=== PATIENT | male | born 1980 | race Caucasian/White ===

== ENCOUNTER 2024-02-11 16:48 | Emergency (ER) | payer SELFPAY ==
[2024-02-11 16:52] VITALS: BP 150/88; PULSE 89; TEMP 36.4; O2SAT 96; BMI 54.8
--- NOTE | 2024-02-11 17:04 | ED_ITS ---
HPI HPI - Back Pain/Injury General Chief Complaint: Back Pain/Injury Stated Complaint: Back Pain Time Seen by Provider: 02/11/24 16:58 Mode of arrival: walk-in History of Present Illness HPI Narrative: 43 year old male presents to the ED for low back pain. Onset was Sunday02/08/24 after sitting at a football game on bleachers. He has hx chronic low back pain. Denies fever, chills, injury, urinary sx. Denies change in bowel and/or bladder control. Denies saddle anesthesia. He has been taking Tylenol for pain. He is accompanied by family for a ride home. Related Data Previous Rx's ?Medication ?Instructions ?Recorded oxycodone-acetaminophen 5 mg-325 1 tab PO TID PRN pain 4 days #12 02/11/24 mg tablet (Percocet) tabs prednisone 10 mg tablet See Rx Instructions .Route 02/11/24 .COMPLEX #30 tabs tizanidine 4 mg capsule (Zanaflex) 4 mg PO Q8H PRN muscle spasticity 02/11/24 #14 caps Allergies Allergy/AdvReac Type Severity Reaction Status Date / Time No Known Drug Allergies Allergy Verified 02/11/24 16:52 Opioid HPI Opioid Management Most Recent Opioid Data: Last Pain Scale 9 02/11/24 17:13 Last MAR Pain Assessment 02/11/24 17:13 Review of Systems ROS Constitutional Denies: fever or chills Ears, nose, mouth, and throat Denies: neck pain Cardiovascular Denies: chest pain Respiratory Denies: shortness of breath Gastrointestinal Denies: abdominal pain, nausea, vomiting or diarrhea Genitourinary Denies: painful urination, urinary frequency, urinary urgency, blood in urine or difficulty urinating Musculoskeletal Reports: back pain; Denies: neck pain, extremity pain or extremity swelling Neurological Denies: headache, numbness in extremities, weakness in extremities or lack of coordination PFSH PFSH Social History Little interest or pleasure in doing things: not at all Feeling down, depressed, or hopeless: not at all Exam Constitutional Vital Signs, click to edit/add: Last Vital Signs Temp 97.6 F 02/11/24 16:52 Pulse 89 02/11/24 16:52 Resp 18 02/11/24 16:52 BP 150/88 H 02/11/24 16:52 Pulse Ox 96 02/11/24 16:52 O2 Del Method Room Air 02/11/24 16:52 Common normals: no apparent distress and oriented x3 General appearance: cooperative Eye Common normals: conjunctivae normal and no scleral icterus Neck & C-Spine Common normals: supple Cervical spine: no paracervical muscle tenderness and no paracervical muscle spasm Chest Chest: symmetrical chest wall rise Back & Pelvis Thoracic spine/upper back: normal to inspection; no thoracic spinal tenderness and no paraspinal muscle tenderness Lumbar spine/lower back: normal to inspection, paraspinal muscle tenderness and paraspinal muscle spasm; no lumbar spinal tenderness Neuro Common normals: oriented x3 Sensorium/orientation: awake and alert Speech: speech normal Gait (neuro): normal gait Motor exam: strength 5/5 throughout Course Vital Signs Vital signs: Vital Signs Temperature 97.6 F 02/11/24 16:52 Pulse Rate 89 02/11/24 16:52 Respiratory Rate 18 02/11/24 16:52 Blood Pressure 150/88 H 02/11/24 16:52 Pulse Oximetry 96 02/11/24 16:52 Oxygen Delivery Method Room Air 02/11/24 16:52 Temperature 97.6 F 02/11/24 16:52 Pulse Rate 89 02/11/24 16:52 Respiratory Rate 18 02/11/24 16:52 Blood Pressure 150/88 H 02/11/24 16:52 Pulse Oximetry 96 02/11/24 16:52 Oxygen Delivery Method Room Air 02/11/24 16:52 MDM - Back Pain/Injury MDM Narrative Medical decision making narrative: The patient was given prednisone, Zanaflex, and Percocet with improvement in his discomfort. OARRS was reviewed. Prescriptions were provided for prednisone, Zanaflex, and Percocet. Follow up with pcp for a recheck, further evaluation and treatment; return to the ED if condition worsens. Medical Records Attestation: I reviewed the patient's medical records. Discharge Plan Discharge Chief Complaint: Back Pain/Injury Clinical Impression: Back pain Patient Disposition: Home, Self-Care Time of Disposition Decision: 17:56 Condition: Good Mode of Transportation: Private Vehicle Prescriptions / Home Meds: New prednisone 10 mg tablet See Rx Instructions .ROUTE .COMPLEX Qty: 30 0RF Rx Instructions: Take 5 tablets on days 1-2, 4 tabs on days 3-4, 3 tabs on days 5-6, 2 tabs on days 7-8, 1 tab on days 9-10. tizanidine [Zanaflex] 4 mg capsule 4 mg PO Q8H PRN (Reason: muscle spasticity) Qty: 14 0RF oxycodone-acetaminophen [Percocet] 5-325 mg tablet 1 tab PO TID PRN (Reason: pain) 4 Days Qty: 12 0RF Print Language: Romanian Instructions: Back Pain (ED) Additional Instructions: Return to the ER for new or worsening symptoms. Referrals: MARYBETH BEE [Primary Care Provider] - 1 week
[2024-02-11] MEDS: OXYCODONE HCL/ACETAMINOPHEN 5MG/325MG 1 TAB PO (17:13)
[2024-02-11] MEDS: PREDNISONE 20 MG TABLET 40 MG PO (17:14)
[2024-02-11] MEDS: TIZANIDINE HCL 4 MG TABLET PO (17:14)
== END 2024-02-11 18:10 | disposition home or self-care (01) ==
PROVIDERS: Emergency Provider Emergency Medicine; PCP Internal Medicine
DX: M54.9 Dorsalgia, unspecified (principal)
CPT/HCPCS: 99284; J7512

== ENCOUNTER 2024-11-08 23:51 | Observation (INO) | payer OTHER, SELFPAY ==
--- OUTSIDE RECORDS SUMMARY | 2024-10-29 12:30 | XMS_ITS | Encounter Summary ---
Author Organization [facility] tem Address [id number] [address] [place] [address] Care Team Providers Care Ncqa Specialist Name Role Phone Rivera Simon DO Primary Care Provider [phone] Reason for Visit * Reason Comments back issues/ rash on arm Encounter Details Date Type Department Care Team (Late st Contact Info) Description 10/29/2024 12:30 PM EDT Office Visit [facility] Internal Medicine - Family Medicine [address] [place] [address] Rivera Simon DO [address] [place] [address] Degenerative lumbar spinal stenosis (Primary Dx); Dermatitis; Class 3 severe obesity due to excess calories with serious comorbidity and body mass index (BMI) of 50.0 to 59.9 in adult ([facility]) Social History Tobacco Use Types Packs/Day Years Used Date Smoking Tobacco: Never Smokeless Tobacco: Never Alcohol Use Standard Drinks/Week Comments Not Currently 0 (1 standard drink = 0.6 oz pur e alcohol) Social Connection and Isolation Panel [NHANES] A nswer Date Recorded In a typical week, how many times do you talk on the phone with family, friends, or neighbors? Twice a week 06/26/2022 How often do you get together with friends or re latives? Once a week 06/26/2022 How often do you attend sabianist or catholic serv ices? Never 06/26/2022 Do you belong to any clubs o r organizations such as sabianist groups, unions, fraternal or athletic groups, or school groups? No 06/26/2022 How often do you attend meet ings of the clubs or organizations you belong to? Never 06/26/2022 Are you , , di vorced, , never , or living with a partner? 06/26/2022 AUDIT-C Answer Date Recorded Q1: How often do you have a drink containing alcohol? Never 06/26/2022 Q2: How many drinks containi ng alcohol do you have on a typical day when you are drinking? Patient does not drink Q3: How often do you have si x or more drinks on one occasion? Never 06/26/2022 Overall Financial Resource Strain (CARDIA) Answe r Date Recorded How hard is it for you to pa y for the very basics like food, housing, medical care, and heating? Not very hard 10/28/2024 PHQ-2 Answer Date Recorded Total Score 0 10/29/2024 [facility] - Occupational Stress Questionnaire Answer Date Recorded Do you feel stress - tense, restless, nervous, or anxious, or unable to sleep at night because your mind is troubled all the time - these days? Only a little 06/26/2022 Exercise Vital Sign Answer Date Recorde d On average, how many days pe r week do you engage in moderate to strenuous exercise (like a brisk walk)? 1 day 06/26/2022 On average, how many minutes do you engage in exercise at this level? 10 min 06/26/2022 PRAPARE - Transportation Answer Date Re corded In the past 12 months, has l ack of transportation kept you from medical appointments or from getting medications? No 10/03 In the past 12 months, has l ack of transportation kept you from meetings, work, or from getting things needed for daily living? No 10/28/2024 Housing Instability Answer Date Recorde d Are you worried or concerned that in the next two months you may not have stable housing that you own, rent or stay in as a part of a household? No 10/28/2024 Childcare Answer Date Recorded Do problems getting child ca re make it difficult for you to work or study? No 06/26/2022 Employment Answer Date Recorded Do you need help finding a [facility] and/or a training program? No 06/26/2022 Hunger Screening Answer Date Recorded Within the past 12 months we worried whether our food would run out before we got money to buy more. Never True 10/29/2024 Within the past 12 months th e food we bought just didn't last and we didn't have money to get more. Never True 10/29/2024 Purpose - Life Answer Date Recorded I have a purpose and direction in my life. [place] er Agree nor Disagree 06/26/2022 Education Answer Date Recorded What is the highest level of school you have completed or the highest degree you have received? Associate degree: occupational, technical, or vocational program 06/26/2022 Sex and Gender Information Value Date Recorded Sex Assigned at Not on file Legal Sex Male 11:34 AM EDT Gender Identity Not on file Sexual Orientation Not on file documented as of this encounter Last Filed Vital Signs Vital Sign Reading Time Taken Comments Blood Pressure 118/72 10/29/2024 12:36 PM EDT Pulse 92 10/29/2024 12:36 PM EDT Temperature 36.4 C (97.5 F) 10/29/2024 12:36 PM EDT Respiratory Rate 20 10/29/2024 12:36 PM EDT Oxygen Saturation 100% 10/29/2024 12:36 PM EDT Inhaled Oxygen Concentration - - Weight 213.6 kg (471 lb) 10/29/2024 12:36 PM EDT Height 193 cm (6' 3.98 ) 10/29/2024 12:36 PM EDT Body Mass Index 57.36 10/29/2024 12:36 PM EDT documented in this encounter Progress Notes * Rivera Simon, DO - 10/29/2024 12:30 PM EDT IM PROGRESS NOTE Patient - Junior Collins Age - 44 y.o. - 1980 ASSESSMENT & PLAN 1. Degenerative lumbar spinal stenosis (Primary) -patient with recurrent symptoms of his lumbar spinal stenosis -I reviewed MRI report from 2012 showing moderate disease in the L4-L5 and L5-S1 area -will start symptomatic treatment with prednisone burst, restarting baclofen, and advised to use heat or liniment to the low back -if this does not provide any lasting relief, will need to proceed with a repeat MRI scan - predniSONE (DELTASONE) 20 mg tablet; Take 2 tablets (40 mg total) by mouth in the morning for 5 days. Dispense: 10 tablet; Refill: 0 - baclofen (LIORESAL) 10 mg tablet; Take 1 tablet (10 mg total) by mouth 3 (three) times a day. Dispense: 30 tablet; Refill: 2 2. Dermatitis -unknown dermatitis with pruritus -advised patient to use cool compress to the itching areas -may start using Zyrtec or Miriam once daily to help with itching 3. Class 3 severe obesity due to excess calories with serious comorbidity and body mass index (BMI)of 50.0 to 59.9 in adult ([facility]) -currently on phentermine and topiramate -advised patient to start taking them routinely at the same time to assess the efficacy of the treatment Subjective 44-year-old male presents for evaluation of back pain. He has had chronic back pain for over a year, but has gotten worse over the past month. -is located in his lower back, but does not radiate into the legs. -describes it as a burning electric shock type feeling which radiates from his low back and sacral area to his iliac crest, but not to the legs or abdominal region -subsequently will have a chronic aching and stiffness -does not really bother him when he 1st wakes up in the morning, or even while sleeping. However after about 1-2 hours during the day, the discomfort will start -he notices he is having to walk in a flexed position in order to relieve the discomfort. -did have some baclofen left from previous episode which did help with some relief, and is taking meloxicam routinely. -this is similar to a previous episode requiring ED visit about 6-8 months ago. -no instability or falls due to the back pain A review of systems was negative except for the following: Endocrine: Has not gained or lost any weight since starting phentermine and topiramate. However hasnot been taking either medication routinely. Dermatological: Complains of some pruritic, slightly raised lesions on both forearms along the extensor surface. No discoloration, but is located within the area of his tattoos bilaterally.. Exam BP 118/72 (BP Site: Left Arm, BP Postition: Sitting, BP CUFF SIZE: L (13-17 inches)) Pulse 92 Temp 36.4 ??C (97.5 ??F) (Tympanic) Resp 20 Ht 193 cm (6' 3.98 ) Wt (!) 213.6 kg (471 lb) SpO2 100% BMI 57.36 kg/m?? Physical Exam Vitals reviewed. Constitutional: General: He is not in acute distress. Appearance: He is well-developed. He is obese. He is not toxic-appearing. Comments: Extremely obese HENT: Head: Normocephalic. Right Ear: External ear normal. Left Ear: External ear normal. Nose: No congestion or rhinorrhea. Right Turbinates: Swollen. Left Turbinates: Swollen. Eyes: General: No scleral icterus. Neck: Vascular: No carotid bruit. Cardiovascular: Rate and Rhythm: Normal rate and regular rhythm. Heart sounds: No murmur heard. No gallop. Comments: Heart tones are distant Pulmonary: Effort: Pulmonary effort is normal. Breath sounds: No wheezing or rales. Musculoskeletal: General: Tenderness (bilateral lumbar paraspinals, bilateral SI joints and bilateral sciatic notch)present. Right lower leg: No edema. Left lower leg: No edema. Comments: Lumbar flexion limited at 45??. Lumbar extension limited at 0?? with pain Skin: General: Skin is warm and dry. Coloration: Skin is not jaundiced. Findings: No bruising. Neurological: General: No focal deficit present. Mental Status: He is alert and oriented to person, place, and time. Cranial Nerves: No cranial nerve deficit. Sensory: No sensory deficit (No loss of pinprick sensation in the L4, L5, or S1 dermatome bilaterally in the lower legs). Motor: No weakness. Coordination: Coordination normal. Deep Tendon Reflexes: Reflexes are normal and symmetric. Reflexes normal (Patellar 1+/4 bilateral. Achilles 1+/4 bilateral.). Comments: Straight leg raising negative in the seated position bilaterally. Psychiatric: Mood and Affect: Mood normal. Behavior: Behavior normal. Meds Current Outpatient Medications: famotidine (PEPCID) 20 mg tablet, Take 1 tablet (20 mg total) by mouth in the morning and 1 tablet (20 mg total) before bedtime., Disp: 180 tablet, Rfl: 1 lisinopril-hydroCHLOROthiazide (PRINZIDE,ZESTORETIC) 20-25 mg per tablet, Take 1 tablet by mouth inthe morning., Disp: 90 tablet, Rfl: 1 meloxicam (MOBIC) 15 mg tablet, Take 1 tablet (15 mg total) by mouth in the morning., Disp: 90 tablet, Rfl: 1 phentermine 37.5 MG capsule, Take 1 capsule (37.5 mg total) by mouth every morning., Disp: 30 capsule, Rfl: 0 sertraline (ZOLOFT) 50 mg tablet, Take 1 tablet (50 mg total) by mouth in the morning., Disp: 90 tablet, Rfl: 1 topiramate (TOPAMAX) 25 mg tablet, Take 1 tablet (25 mg total) by mouth nightly., Disp: 30 tablet, Rfl: 2 baclofen (LIORESAL) 10 mg tablet, Take 1 tablet (10 mg total) by mouth 3 (three) times a day., Disp: 30 tablet, Rfl: 2 predniSONE (DELTASONE) 20 mg tablet, Take 2 tablets (40 mg total) by mouth in the morning for 5 days., Disp: 10 tablet, Rfl: 0 Lab Results No visits with results within 1 Month(s) from this visit. Latest known visit with results is: Hospital Outpatient Visit on 07/04/2024 Component Date Value Ref Range Status Cholesterol 07/04/2024 182 150 - 200 mg/dL Final Triglycerides 07/04/2024 102 27 - 150 mg/dL Final HDL Cholesterol 07/04/2024 43 >39 mg/dL Final VLDL 07/04/2024 20 0 - 30 mg/dL Final LDL (calc) 07/04/2024 119 <130 mg/dL Final Cholesterol:HDL Ratio 07/04/2024 4.2 1.0 - 5.0 Final Sodium 07/04/2024 138 134 - 146 mmol/L Final Potassium, Bld 07/04/2024 4.3 3.5 - 5.0 mmol/L Final Chloride 07/04/2024 100 98 - 109 mmol/L Final CO2 07/04/2024 30 22 - 32 mmol/L Final Anion gap 07/04/2024 8 5 - 15 mmol/L Final BUN 07/04/2024 21 5 - 23 mg/dL Final Creatinine 07/04/2024 0.86 0.60 - 1.30 mg/dL Final Glucose 07/04/2024 95 65 - 99 mg/dL Final Calcium 07/04/2024 9.2 8.5 - 10.5 mg/dL Final Total Protein 07/04/2024 7.4 6.0 - 8.0 g/dL Final Albumin 07/04/2024 4.4 3.2 - 5.3 g/dL Final Alkaline Phosphatase 07/04/2024 65 39 - 130 U/L Final AST 07/04/2024 18 0 - 41 U/L Final ALT 07/04/2024 26 0 - 40 U/L Final Total bilirubin 07/04/2024 0.6 0.3 - 1.2 mg/dL Final eGFR (CKD-EPI)non-race dependent 07/04/2024 >90 >59 ml/min/1.73sq.m Final Other Testing No results found. Rivera Simon DO., [facility] Office: [phone] documented in this encounter Plan of Treatment Not on file documented as of this encounter Visit Diagnoses Diagnosis Degenerative lumbar spinal stenosis- Primary Spinal stenosis of lumbar region Dermatitis Contact dermatitis and other eczema, due to unspecified cause Class 3 severe obesity due to excess calories with serious comorbidity and body mass index (BMI) of 50.0 to 59.9 in adult ([facility]) documented in this encounter Additional Health Concerns Assessment Noted Time PHQ-9 Depression Total Score: 0 10/30/19 25 12:36 PM EDT documented as of this encounter Care Teams Ncqa Specialist Relationship Specialty Start Date End Date Rivera Simon DO [address] [place] [address] PCP - General Internal Medicine 06/13/22 documented as of this encounter
--- OUTSIDE RECORDS SUMMARY | 2024-10-29 12:30 | XMS_ITS | Encounter Summary ---
Author Organization [facility] tem Address [id number] [address] [place] [address] Care Team Providers Care Animal Control Specialist Name Role Phone Rivera Simon DO Primary Care Provider [phone] Reason for Visit * Reason Comments back issues/ rash on arm Encounter Details Date Type Department Care Team (Late st Contact Info) Description 10/29/2024 12:30 PM EDT Office Visit [facility] Internal Medicine - Family Medicine [address] [place] [address] Rivera Simon DO [address] [place] [address] Degenerative lumbar spinal stenosis (Primary Dx); Dermatitis; Class 3 severe obesity due to excess calories with serious comorbidity and body mass index (BMI) of 50.0 to 59.9 in adult ([facility]) Social History Tobacco Use Types Packs/Day Years [...] week 06/26/2022 How often do you attend gnosticism or zoroastrian serv ices? Never 06/26/2022 Do you belong to any clubs o r organizations such as gnosticism groups, unions, fraternal or athletic groups, or [...] Answer Date Recorded Total Score 0 10/29/2024 [facility] - Occupational Stress [...] Recorded Do you need help finding a [employer] [facility] [employer] [facility] [facility] [facility] and/or a training program? No [...] index (BMI)of 50.0 to 59.9 in adult ([facility]) -currently on phentermine and topiramate -advised patient [...] Testing No results found. Rivera Simon DO., [facility] Office: [phone] documented in this encounter Plan of Treatment Not on file documented as of this encounter Visit Diagnoses Diagnosis Degenerative lumbar spinal stenosis- Primary Spinal stenosis of lumbar region Dermatitis Contact dermatitis and other eczema, due to unspecified cause Class 3 severe obesity due to excess calories with serious comorbidity and body mass index (BMI) of 50.0 to 59.9 in adult ([facility]) documented in this encounter Additional Health Concerns Assessment Noted Time PHQ-9 Depression Total Score: 0 10/30/19 25 12:36 PM EDT documented as of this encounter Care Teams Animal Control Specialist Relationship Specialty Start Date End Date Rivera Simon DO [address] [place] [address] PCP - General Internal Medicine 06/13/22 documented as of this encounter
--- OUTSIDE RECORDS SUMMARY | 2024-11-08 23:58 | XMS_ITS | CCD ---
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 Name Role Phone DR MARYBETH BEE Attending Unavailable ROHIT, DR RUEDA Consulting Unavailable ROHIT, DR RUEDA Primary Care Unavailable ROHIT, DR RUEDA Admitting Unavailable Marybeth Bee DO Primary Care Provider MARYBETH BEE Referring MARYBETH Taylor Primary Care Unavailable Marybeth Bee DO Primary Care Provider [phone] MARYBETH BEE Attending MARYBETH Taylor Referring Unavailable MARYBETH BEE Primary Care Unavailable MARYBETH BEE Attending Unavailable MARYBETH BEE Referring Unavailable MARYBETH BEE Primary Care Unavailable Medications Current Medications Medication Drug Class(es) Dates Sig (Normalized) Sig (Original) baclofen 10 mg oral tablet (9 sources) gamma-Aminobutyri c Acid-ergic Agonist Start: 09-29-2024 End: 10-29-2024 take 1 tablet by mouth three times daily baclofen (LIORESAL) 10 mg tablet Indications: Degenerative lumbar spinal stenosis Take 1 tablet (10 mg total) by mouth 3 (three) times a day. 30 tablet 2 10/29/2024 Active Start: 02-11-2024 take 1 tablet by henry th three times daily baclofen (LIORESAL) 10 mg tablet Indications: Degenerative lumbar spinal stenosis Take 1 tablet (10 mg total) by mouth 3 (three) times a day. 30 tablet 02/11/2024 Active famotidine 20 mg oral tablet (20 sources) Histamine-2 Receptor Antagonist Start: 04-23-2023 End: 07-07-2024 take 1 tablet by mouth in the morning, then take 1 tablet by mouth at bedtime famotidine (PEPCID) 20 mg tablet Indications: Gastroesophageal reflux disease, unspecified whether esophagitis present Take 1 tablet (20 mg total) by mouth in the morning and 1 tablet (20 mg total) before bedtime. 180 tablet 1 07/07/2024 Active hydroCHLOROthiazide 25 mg / lisinopril 20 mg oral tablet (20 sources) Thiazide Diuretic, Angiotensin Converting Enzyme Inhibitor Start: 02-01-2024 End: 07-07-2024 take 1 tablet by mouth once in the morning lisinopril-hydroCHLO ROthiazide (PRINZIDE,ZESTORETIC ) 20-25 mg per tablet Indications: Essential hypertension Take 1 tablet by mouth in the morning. 90 tablet 1 07/07/2024 Active Start: 10-19-2023 End: 02-01-2024 take 1 tablet by mouth once daily in the morning lisinopril-hydroCHLOROthiazide (PRINZIDE,ZESTORETIC) 20-25 mg per tablet Indications: Essential hypertension take 1 tablet by mouth every morning 90 tablet 1 10/19/2023 02/01/2024 Discontinued (Reorder) Start: 04-23-2023 End: 10-19-2023 take 1 tablet by mouth once in the morning lisinopril-hydroCHLOROthiazide (PRINZIDE,ZESTORETIC) 20-25 mg per tablet Indications: Essential hypertension Take 1 tablet by mouth in the morning. 90 tablet 1 04/23/2023 10/19/2023 Discontinued meloxicam 15 mg oral tablet (20 sources) Nonsteroidal Anti-inflammatory Drug Start: 02-05-2024 End: 07-07-2024 take 1 tablet by mouth in the morning meloxicam (MOBIC) 15 mg tablet Indications: Degenerative lumbar spinal stenosis Take 1 tablet (15 mg total) by mouth in the morning. 90 tablet 1 07/07/2024 Active Start: 12-07-2023 End: 02-01-2024 take 1 tablet by mouth in the morning meloxicam (MOBIC) 15 mg tablet Indications: Degenerative lumbar spinal stenosis Take 1 tablet (15 mg total) by mouth in the morning. 30 tablet 01/10/2024 02/01/2024 Discontinued (Reorder) Start: 04-20-2023 End: 12-05-2023 take 1 tablet by mouth once daily in the morning meloxicam (MOBIC) 15 mg tablet Indications: Degenerative lumbar spinal stenosis take 1 tablet by mouth every morning 30 tablet 2 07/25/2023 Active phentermine hydrochloride 37.5 mg oral capsule (16 sources) Sympathomimetic Amine Anorectic Start: 07-14-2024 take 50-59.9 capsules by mouth once daily in the morning phentermine 37.5 MG capsule Indications: Class 3 severe obesity due to excess calories with serious comorbidity and body mass index (BMI) of 50.0 to 59.9 in adult [place] Take 1 capsule (37.5 mg total) by mouth every morning. 30 capsule 07/14/2024 Active Start: 07-08-2024 End: 07-09-2024 take 50-59.9 capsules by mouth once daily in the morning phentermine 37.5 MG capsule Indications: Class 3 severe obesity due to excess calories with serious comorbidity and body mass index (BMI) of 50.0 to 59.9 in adult [place] TAKE 1 CAPSULE BY MOUTH EVERY MORNING 30 capsule 07/09/2024 Active Start: 09-05-2023 take 50-59.9 tablets by mouth once daily before breakfast phentermine (ADIPEX-P) 37.5 mg tablet Indications: Class 3 severe obesity due to excess calories with serious comorbidity and body mass index (BMI) of 50.0 to 59.9 in adult [place] Take 1 tablet (37.5 mg total) by mouth every morning before breakfast. 30 tablet 09/05/2023 Active predniSONE 20 mg oral tablet (1 source) Start: 10-29-2024 End: 11-03-2024 take 2 tablets by mouth in the morning predniSONE (DELTASONE) 20 mg tablet Indications: Degenerative lumbar spinal stenosis Take 2 tablets (40 mg total) by mouth in the morning for 5 days. 10 tablet 10/29/2024 11/03/2024 Active sertraline 50 mg oral tablet (20 sources) Serotonin Reuptake Inhibitor Start: 01-22-2023 End: 07-07-2024 take 1 tablet by mouth in the morning sertraline (ZOLOFT) 50 mg tablet Indications: Anxiety Take 1 tablet (50 mg total) by mouth in the morning. 90 tablet 1 07/07/2024 Active tirzepatide, weight loss, (ZEPBOUND) 5 mg/0.5 mL pen injector (2 sources) Start: 07-04-2024 tirzepatide, w eight loss, (ZEPBOUND) 5 mg/0.5 mL pen injector Indications: JILLIAN (obstructive sleep apnea) Inject 5 mg under the skin every 7 days. 6 mL 1 07/04/2024 Active topiramate 25 mg oral tablet (2 sources) Start: 07-08-2024 take 50-59.9 tablets by mouth once daily topiramate (TOPAMAX) 25 mg tablet Indications: Class 3 severe obesity due to excess calories with serious comorbidity and body mass index (BMI) of 50.0 to 59.9 in adult [place] Take 1 tablet (25 mg total) by mouth nightly. 30 tablet 2 07/08/2024 Active Completed/Discontinued Medications Medication Drug Class(es) Dates Sig (Normalized) Sig (Original) semaglutide, weight loss, (WEGOVY) 0.5 mg/0.5 mL pen injector (1 source) Start: 06-16-2024 End: 07-04-2024 semaglutide, weight loss, (WEGOVY) 0.5 mg/0.5 mL pen injector Indications: Class 3 severe obesity due to excess calories with serious comorbidity and body mass index (BMI) of 50.0 to 59.9 in adult [place] Inject 0.5 mL (0.5 mg total) under the skin every 7 days. 6 mL 06/16/2024 07/04/2024 Discontinued (Formulary change) semaglutide, weight loss, (WEGOVY) 2.4 mg/0.75 mL pen injector (3 sources) Start: 12-28-2022 End: 09-05-2023 semaglutide, weight loss, (WEGOVY) 2.4 mg/0.75 mL pen injector Indications: Class 3 severe obesity due to excess calories with serious comorbidity and body mass index (BMI) of 50.0 to 59.9 in adult [place] Inject 0.75 mL (2.4 mg total) under the skin every 7 days. 9 mL 1 12/28/2022 09/05/2023 Discontinued (Cost of medication) Start: 12-28-2022 semaglutide, w eight loss, (WEGOVY) 2.4 mg/0.75 mL pen injector Indications: Class 3 severe obesity due to excess calories with serious comorbidity and body mass index (BMI) of 50.0 to 59.9 in adult [place] Inject 0.75 mL (2.4 mg total) under the skin every 7 days. 9 mL 1 12/28/2022 Active Problems Active Problems Problem Classification Problem Date Documented Date Episodic/Chronic Allergic reactions (2 sources) Inflammatory dermatosis; Translations: [Dermatitis, unspecified] Onset: 10-29-2024 10-29-2024 Episodic Anxiety disorders (20 sources) Anxiety; Translations: [Anxiety disorder, unspecified] Onset: 06-22-2022 06-22-2022 Chronic Disorders of lipid metabolism (20 sources) Hyperlipidemia, unspecified; Translations: [Hyperlipidemia] Onset: 06-13-2022 Chronic Esophageal disorders (5 sources) Gastroesophageal reflux disease; Translations: [Gastro-esophageal reflux disease without esophagitis] 06-06-2024 Chronic Essential hypertension (20 sources) Essential hypertension; Translations: [Essential (primary) hypertension] Onset: 06-13-2022 06-13-2022 Chronic Other nutritional; endocrine; and metabolic disorders (20 sources) Severe obesity; Translations: [Class 3 severe obesity due to excess calories with serious comorbidity and body mass index (BMI) of 50.0 to 59.9 in adult] Onset: 06-13-2022 07-05-2022 Chronic Other nutritional; endocrine; and metabolic disorders (1 source) Body mass index (BMI) 50.0-59.9, adult; Translations: [Body mass index (BMI) 50.0-59.9, adult] Onset: 07-05-2022 Chronic Other nutritional; endocrine; and metabolic disorders (1 source) Morbid (severe) obesity due to excess calories; Translations: [Morbid (severe) obesity due to excess calories] Onset: 07-05-2022 Chronic Residual codes; unclassified (2 sources) Obstructive sleep apnea syndrome; Translations: [Obstructive sleep apnea (adult) (pediatric)] 07-04-2024 Chronic Residual codes; unclassified (1 source) Obstructive sleep apnea (adult) (pediatric); Translations: [Obstructive sleep apnea (adult) (pediatric)] Onset: 07-04-2024 Chronic Unclassified (1 source) Obesity, class 3; Translations: [Obesity, class 3] Onset: 07-05-2022 Unclassified (1 source) 6 month check up Onset: 07-04-2024 Past or Other Problems Problem Classification Problem Date Documented Da te Episodic/Chronic Mood disorders (19 sources) Mood disorders Onset: 01-22-2023 Resolved: 10-29-2024 01-22-2023 Spondylosis; intervertebral disc disorders; other back problems (20 sources) Degenerative lumbar spinal stenosis; Translations: [Spinal stenosis, lumbar region without neurogenic claudication] Onset: 06-13-2022 04-14-2024 Episodic Results Test Name Value Interpretation Reference Range Facility COMPREHENSIVE METABOLIC PANE Salbador 07-04-2024 Albumin [Mass/Vol] 4.4 g/dL Normal 3.2-5.3 [facility] Comment on above: Performed By: #### Guy ALVAREZ 44872-6 #### [facility] ([id number]) [address], [address] [place] [address] ALP [Catalytic activity/Vol] 65 U/L Normal 39-130 [facility] Comment on above: Performed By: #### Guy ALVAREZ 31295-3 #### [facility] ([id number]) [address], [address] [place] [address] ALT [Catalytic activity/Vol] 26 U/L Normal 0-40 [facility] Comment on above: Performed By: #### Guy ALVAREZ, 66544-2 #### [facility] ([id number]) [address], [address] [place] [address] Anion gap [Moles/Vol] 8 mmol/L Normal 5-15 [facility] Comment on above: Performed By: #### Guy ALVAREZ 87081-8 #### [facility] ([id number]) [address], [address] [place] [address] AST [Catalytic activity/Vol] 18 U/L Normal 0-41 [facility] Comment on above: Performed By: #### Guy ALVAREZ 93113-9 #### [facility] ([id number]) [address], [address] [place] [address] Bilirubin [Mass/Vol] 0.6 mg/dL Normal 0.3-1.2 [facility] Comment on above: Performed By: #### Guy ALVAREZ, 09716-9 #### [facility] ([id number]) [address], [address] [place] [address] Calcium [Mass/Vol] 9.2 mg/dL Normal 8.5-10.5 [facility] Comment on above: Performed By: #### Guy ALVAREZ, 39590-9 #### [facility] ([id number]) [address] [address] [place] [address] Chloride [Moles/Vol] 100 mmol/L Normal 98-109 [facility] Comment on above: Performed By: #### Guy ALVAREZ, 24500-2 #### [facility] ([id number]) [address], [address] [place] [address] CO2 [Moles/Vol] 30 mmol/L Normal 22-32 [facility] Comment on above: Performed By: #### Guy ALVAREZ, 87841-3 #### [facility] ([id number]) [address], [facility] [address] [place] [address] Creatinine [Mass/Vol] 0.86 mg/dL Normal 0.60-1.30 [facility] Comment on above: Result Comment: METH OD TRACEABLE TO IDMS STANDARD Performed By: #### Guy ALVAREZ, 28626-3 #### [facility] ([id number]) [address] [address] [place] [address] eGFR (CKD-EPI) NON-RACE DEPENDENT >90 Normal >59 [facility] Comment on above: Result Comment: Reported eGFR is based on the CKD-EPI 2020 equation that does not use a race coefficient. Performed By: #### Guy ALVAREZ, 64258-8 #### [facility] ([id number]) [address], [address] [place] [address] Glucose [Mass/Vol] 95 mg/dL Normal 65-99 [facility] Comment on above: Performed By: #### Guy ALVAREZ, 14485-0 #### [facility] ([id number]) [address] [place] [address] Potassium [Moles/Vol] 4.3 mmol/L Normal 3.5-5.0 [facility] Comment on above: Performed By: #### Guy ALVAREZ, 11990-1 #### [facility] ([id number]) [address], [address] [place] [address] Protein [Mass/Vol] 7.4 g/dL Normal 6.0-8.0 [facility] Comment on above: Performed By: #### Guy ALVAREZ, 33730-9 #### [facility] ([id number]) [address], [address] [place] [address] Sodium [Moles/Vol] 138 mmol/L Normal 134-146 [facility] Comment on above: Performed By: #### Guy ALVAREZ, 85333-5 #### [facility] ([id number]) [address], [address] [place] [address] Urea nitrogen [Mass/Vol] 21 mg/dL Normal 5-23 [facility] Comment on above: Performed By: #### Gyu ALVAREZ, 06742-2 #### [facility] ([id number]) [address] [place] [address] Lipid 1996 panelon 5 Cholesterol [Mass/Vol] 182 mg/dL Normal 150-200 [facility] Comment on above: Performed By: #### Guy ALVAREZ, 53578-6 #### [facility] ([id number]) [address] [place] [address] Cholesterol in HDL [Mass/Vol] 43 mg/dL Normal >39 [facility] Comment on above: Result Comment: HDL <40 mg/dL - High Risk HDL > or = 40mg/dL- Desirable HDL >60 mg/dL - Negative Risk Performed By: #### Guy ALVAREZ, 17659-1 #### [facility] ([id number]) [address] [place] [address] Cholesterol in LDL [Mass/Vol] 119 mg/dL Normal <130 [facility] Comment on above: Result Comment: LDL <100 mg/dL - Desirable LDL >160 mg/dL - High Risk Performed By: #### Guy ALVAREZ, 78184-4 #### [facility] ([id number]) [address] [place] [address] Cholesterol in VLDL [Mass/Vol] 20 mg/dL Normal 0-30 [facility] Comment on above: Performed By: #### Guy ALVAREZ, 90658-1 #### [facility] ([id number]) [address] [place] [address] CHOLESTEROL:HDL 4.2 Normal 1.0-5.0 [facility] Comment on above: Performed By: #### Guy ALVAREZ, 38456-3 #### [facility] ([id number]) [address] [address] [place] [address] Triglyceride [Mass/Vol] 102 mg/dL Normal 27-150 [facility] Comment on above: Performed By: #### Guy ALVAREZ, 94263-0 #### [facility] ([id number]) [address] [facility] [address] [place] [address] LIPID PROFILEon 06-27-2022 CHOL-HDL RATIO NORM SEE BELOW Normal [facility] Comment on above: Result Comment: 3.3 - 4.4 LOW RISK 4.4 - 7.1 AVERAGE RISK 7.1 - 11.0 MODERATE RISK >11.0 HIGH RISK Performed By: #### C MP, LIPID #### [facility] [address] [place] [address] Dr. Kimmie Palacios Cholesterol [Mass/Vol] 146 mg/dL Normal <=200 [facility] Comment on above: Performed By: #### C MP, LIPID #### [facility] [address] [address] [address] Kimmie Palacios Cholesterol in HDL [Mass/Vol] 45 mg/dL Normal 40-60 [facility] Comment on above: Performed By: #### C MP, LIPID #### [facility] [address] [place] [address] Dr. Kimmie Palacios Cholesterol in LDL [Mass/Vol] 79.8 mg/dL Normal [facility] Comment on above: Performed By: #### C MP, LIPID #### [facility] [address] [place] [address] Dr. Kimmie Palacios Cholesterol.total/C holesterol in HDL [Mass ratio] 3.2 {ratio} Normal [facility] Comment on above: Performed By: #### C MP, LIPID #### [facility] [address] [place] [address] Dr. Kimmie Palacios HDL NORMAL > or = 60 mg/dl - LOW CARDIOVASCULAR RISK <40 mg/dl - HIGH CARDIOVASCULAR RISK Normal [facility] Comment on above: Performed By: #### C MP, LIPID #### [facility] [address] [place] [address] Dr. Kimmie Palacios LDL CALC NORMAL SEE BELOW Normal [facility] Comment on above: Result Comment: <100 mg/dl OPTIMAL 100 - 129 mg/dl NEAR OR ABOVE OPTIMAL 130 - 159 mg/dl BORDERLINE HIGH 160 - 189 mg/dl HIGH >190 mg/dl VERY HIGH Performed By: #### C MP, LIPID #### [facility] [address] [place] [address] Dr. Kimmie Palacios Triglyceride [Mass/Vol] 106 mg/dL Normal <=150 [facility] Comment on above: Performed By: #### C MP, LIPID #### [facility] [address] [place] [address] Dr. Kimmie Palacios VLDL CALC 21.2 mg/dL Normal [facility] Comment on above: Performed By: #### C MP, LIPID #### [facility] [address] [place] [address] Dr. Kimmie Palacios PROF 14(COMP METB)on 023 Albumin [Mass/Vol] 3.2 g/dL Critically low 3.4-5.0 [facility] Comment on above: Performed By: #### C MP, LIPID #### [facility] [address] [place] [address] Dr. Kimmie Palacios Albumin/Globulin [Mass ratio] 0.6 {ratio} Normal [facility] Comment on above: Performed By: #### C MP, LIPID #### [facility] [address] [place] [address] Dr. Kimmie Palacios ALP [Catalytic activity/Vol] 79 U/L Normal 46-116 [facility] Comment on above: Performed By: #### C MP, LIPID #### [facility] [address] [place] [address] Dr. Kimmie Palacios ALT [Catalytic activity/Vol] 24 U/L Normal 16-63 [facility] Comment on above: Performed By: #### C MP, LIPID #### [facility] [address] [place] [address] Dr. Kimmie Palacios Anion gap [Moles/Vol] 12.8 mmol/L Normal [facility] Comment on above: Performed By: #### C MP, LIPID #### [facility] [address] [place] [address] Dr. Kimmie Palacios AST [Catalytic activity/Vol] 16 U/L Normal 15-37 [facility] Comment on above: Performed By: #### C MP, LIPID #### [facility] [address] [place] [address] Dr. Kimmie Palacios Bilirubin [Mass/Vol] 0.3 mg/dL Normal 0.2-1.0 [facility] Comment on above: Performed By: #### C MP, LIPID #### [facility] [address] [address] [address] Kimmie Palacios Calcium [Mass/Vol] 9.1 mg/dL Normal 8.5-10.1 [facility] Comment on above: Performed By: #### C MP, LIPID #### [facility] [address] [address] [address] Kimmie Palacios Chloride [Moles/Vol] 100 mmol/L Normal 98-107 [facility] Comment on above: Performed By: #### C MP, LIPID #### [facility] [address] [place] [address] Dr. Kimmie Palacios CO2 [Moles/Vol] 29.3 mmol/L Normal 21.0-32.0 [facility] Comment on above: Performed By: #### C MP, LIPID #### [facility] [address] [place] [address] Dr. Kimmie Palacios Creatinine [Mass/Vol] 0.97 mg/dL Normal 0.70-1.30 [facility] Comment on above: Performed By: #### C MP, LIPID #### [facility] [address] [place] [address] Dr. Kimmie Palacios EGFR-AF DUTCH >60 Normal >=60 [facility] Comment on above: Performed By: #### C MP, LIPID #### [facility] [address] [place] [address] Dr. Kimmie Palacios EGFR-NON AF DUTCH >60 Normal >=60 [facility] Comment on above: Performed By: #### C MP, LIPID #### [facility] [address] [place] [address] Dr. Kimmie Palacios Globulin (S) [Mass/Vol] 5.0 g/dL Normal [facility] Comment on above: Performed By: #### C MP, LIPID #### [facility] [address] [place] [address] Dr. Kimmie Palacios Glucose [Mass/Vol] 102 mg/dL Normal 74-106 [facility] Comment on above: Performed By: #### C MP, LIPID #### [facility] [address] [address] [address] Kimmie Palacios Potassium [Moles/Vol] 5.1 mmol/L Normal 3.5-5.1 [facility] Comment on above: Performed By: #### C MP, LIPID #### [facility] [address] [place] [address] Dr. Kimmie Palacios Protein [Mass/Vol] 8.2 g/dL Normal 6.4-8.2 [facility] Comment on above: Performed By: #### C MP, LIPID #### [facility] [address] [address] [address] Kimmie Palacios Sodium [Moles/Vol] 137 mmol/L Normal 136-145 [facility] Comment on above: Performed By: #### C MP, LIPID #### [facility] [address] [place] [address] Dr. Kimmie Palacios Urea nitrogen [Mass/Vol] 20.0 mg/dL Critically high 7.0-18.0 [facility] Comment on above: Performed By: #### C MP, LIPID #### [facility] [address] [address] [address] Kimmie Palacios Urea nitrogen/Creatinine [Mass ratio] 20.6 mg/mg Normal [facility] Comment on above: Performed By: #### C MP, LIPID #### [facility] [address] [place] [address] Dr. Kimmie Palacios COMPREHENSIVE METABOLIC PANE Salbador 08-05-2021 Albumin [Mass/Vol] 4.1 g/dL Normal 3.6-5.1 [facility] Comment on above: Performed By: #### 7 600, [id number] #### [facility] [address], [address] [place] [phone] Heel Pricker: Vicente Ahmadi MD Albumin/Globulin [Mass ratio] 1.3 {ratio} Normal 1.0-2.5 [facility] Comment on above: Performed By: #### 7 600, [id number] #### [facility] [address], [address] [place] [id number] Heel Pricker: Vicente Ahmadi MD ALP [Catalytic activity/Vol] 67 U/L Normal 36-130 [facility] Comment on above: Performed By: #### 7 600, [address]7510 #### [facility] [address] [address] Heel Pricker: Vicente Ahmadi MD ALT [Catalytic activity/Vol] 21 U/L Normal 9-46 [facility] Comment on above: Performed By: #### 7 600, 05151 #### [facility] [address] [address] Heel Pricker: Vicente Ahmadi MD AST [Catalytic activity/Vol] 16 U/L Normal 10-40 [facility] Comment on above: Performed By: #### 7 600, [id number] #### [facility] [address] [place] [address] Heel Pricker: Vicente Ahmadi MD Bilirubin [Mass/Vol] 0.4 mg/dL Normal 0.2-1.2 [facility] Comment on above: Performed By: #### 7 600, 74018 #### [facility] [address] [place] [address] Heel Pricker: Vicente Ahmadi MD BUN/CREATININE RATIO NOT APPLICABLE Normal 6-22 [facility] Comment on above: Performed By: #### 7 600, 29152 #### [facility] [address] [place] [address] Heel Pricker: Vicente Ahmadi MD Calcium [Mass/Vol] 9.1 mg/dL Normal 8.6-10.3 [facility] Comment on above: Performed By: #### 7 600, 24604 #### [facility] [address] [place] [address] Heel Pricker: Vicente Ahmadi MD Chloride [Moles/Vol] 101 mmol/L Normal 98-110 [facility] Comment on above: Performed By: #### 7 600, 51997 #### [facility] [address] [address] Heel Pricker: Vicente Ahmadi MD CO2 [Moles/Vol] 27 mmol/L Normal 20-32 [facility] Comment on above: Performed By: #### 7 600, [id number] #### [facility] [place] [address] Heel Pricker: Vicente Ahmadi MD Creatinine [Mass/Vol] 0.86 mg/dL Normal 0.60-1.35 [facility] Comment on above: Performed By: #### 7 600, [id number] #### [facility] [place] [address] Heel Pricker: Vicente Ahmadi MD eGFR NON-AFR. DUTCH 110 mL/min/1.73m2 Normal > OR = 60 [facility] Comment on above: Performed By: #### 7 600, [id number] #### [facility] [place] [address] Heel Pricker: Vicente Ahmadi MD GFR/1.73 sq M.predicted among blacks MDRD (S/P/Bld) [Vol rate/Area] 127 mL/min/{1.73_m2} Normal > OR = 60 [facility] Comment on above: Performed By: #### 7 600, [id number] #### [facility] [place] [address] Heel Pricker: Vicente Ahmadi MD Globulin (S) [Mass/Vol] 3.1 g/dL Normal 1.9-3.7 [facility] Comment on above: Performed By: #### 7 600, [id number] #### [facility] [place] [address] Heel Pricker: Vicente Ahmadi MD Glucose [Mass/Vol] 92 mg/dL Normal 65-99 [facility] Comment on above: Result Comment: Fasting reference interval Performed By: #### 7 600, [id number] #### [facility] [place] [address] Heel Pricker: Vicente Ahmadi MD Potassium [Moles/Vol] 4.5 mmol/L Normal 3.5-5.3 [facility] Comment on above: Performed By: #### 7 600, 75539 #### [facility] of [address], [address] [place] [address] Heel Pricker: Vicente Ahmadi MD Protein [Mass/Vol] 7.2 g/dL Normal 6.1-8.1 [facility] Comment on above: Performed By: #### 7 600, [id number] #### [facility] of [address], [address] [place] [address] Heel Pricker: Vicente Ahmadi MD Sodium [Moles/Vol] 136 mmol/L Normal 135-146 [facility] Comment on above: Performed By: #### 7 600, 14401 #### [facility] of [place] [address] Heel Pricker: Vicente Ahmadi MD Urea nitrogen [Mass/Vol] 21 mg/dL Normal 7-25 [facility] Comment on above: Performed By: #### 7 600, 82431 #### [facility] [place] [address] Heel Pricker: Vicente Ahmadi MD LIPID PANEL, [facility] 03-0 Cholesterol [Mass/Vol] 156 mg/dL Normal <200 [facility] Comment on above: Order Comment: FASTI NG:YES FASTING: YES Performed By: #### 7 600, [id number] #### [facility] [place] [address] Heel Pricker: Vicente Ahmadi MD Cholesterol in HDL [Mass/Vol] 42 mg/dL Normal > OR = 40 [facility] Comment on above: Order Comment: FASTI NG:YES FASTING: YES Performed By: #### 7 600, [id number] #### [facility] [place] [address] Heel Pricker: Vicente Ahmadi MD Cholesterol in LDL [Mass/Vol] 94 mg/dL Normal [facility] Comment on above: Order Comment: FASTI NG:YES FASTING: YES Result Comment: Refe rence range: <100 Desirable range <100 mg/dL for primary prevention; <70 mg/dL for patients with CHD or diabetic patients with > or = 2 CHD risk factors. LDL-C is now calculated using the Renzo calculation, which is a validated novel method providing better accuracy than the Friedewald equation in the estimation of LDL-C. Marcus PHILIPPE et al. ZOEY. 2013;310(19): 8778-6927 (http://education.Xceleron (Chapter 11).Simple IT/faq/ZOH689) Performed By: #### 7 600, [id number] #### [facility] [address], [address] [place] [address] Heel Pricker: Vicente Ahmadi MD Cholesterol.total/C holesterol in HDL [Mass ratio] 3.7 {ratio} Normal <5.0 [facility] Comment on above: Order Comment: FASTI NG:YES FASTING: YES Performed By: #### 7 600, [id number] #### [facility] [address], [address] [place] [address] Heel Pricker: Vicente Ahmadi MD NON HDL CHOLESTEROL 114 mg/dL (calc) Normal <130 [facility] Comment on above: Order Comment: FASTI NG:YES FASTING: YES Result Comment: For patients with diabetes plus 1 major ASCVD risk factor, treating to a non-HDL-C goal of <100 mg/dL (LDL-C of <70 mg/dL) is considered a therapeutic option. Performed By: #### 7 600, [id number] #### [facility] [address], [address] [place] [address] Heel Pricker: Vicente Ahmadi MD Triglyceride [Mass/Vol] 108 mg/dL Normal <150 [facility] Comment on above: Order Comment: FASTI NG:YES FASTING: YES Performed By: #### 7 600, [id number] #### [facility] [place] [address] Heel Pricker: Vicente Ahmadi MD Vital Signs Date Time Vital Sign Value Performing Clinician Facility 10-29-2024 12:36-0400 Body height 193 cm Marybeth Bee DO Work Phone: [facility] 10-29-2024 12:36-0400 Body mass index (BMI) [Ratio] 57.36 kg/m2 Marybeth Garcias DO Work Phone: [facility] 10-29-2024 12:36-0400 Body temperature 97.5 [degF] Marybeth Garcias DO Work Phone: [facility] 10-29-2024 12:36-0400 Body weight 213.64 kg Marybeth Garcias DO Work Phone: [facility] 10-29-2024 12:36-0400 Diastolic blood pressure 72 mm[Hg] Marybeth Garcias DO Work Phone: [facility] 10-29-2024 12:36-0400 Heart rate 92 /min Marybeth Garcias DO Work Phone: [facility] 10-29-2024 12:36-0400 Respiratory rate 20 /min Marybeth Garcias DO Work Phone: [facility] 10-29-2024 12:36-0400 SaO2% (BldA) [Mass fraction] 100 % Marybeth Garcias DO Work Phone: [facility] 10-29-2024 12:36-0400 Systolic blood pressure 118 mm[Hg] Marybeth Bee DO Work Phone: [facility] 07-04-2024 07:55-0500 Body height 193 cm Marybeth Garcias DO Work Phone: [facility] 07-04-2024 07:55-0500 Body mass index (BMI) [Ratio] 57.87 kg/m2 Marybeth Garcias DO Work Phone: [facility] 07-04-2024 07:55-0500 Body temperature 97.39 [degF] Marybeth Garcias DO Work Phone: [facility] 07-04-2024 07:55-0500 Body weight 215.64 kg Marybeth Garcias DO Work Phone: [facility] 07-04-2024 07:55-0500 Diastolic blood pressure 72 mm[Hg] Marybeth Bee DO [email or web address] 07-04-2024 07:55-0500 Heart rate 97 /min Marybeth Bee DO Work Phone: [email or web address] 07-04-2024 07:55-0500 SaO2% (BldA) [Mass fraction] 98 % Marybeth Bee DO Work Phone: [facility] [employer] 07-04-2024 07:55-0500 Systolic blood pressure 120 mm[Hg] Marybeth Bee DO Work Phone: [facility] [employer] 09-05-2023 16:57-0400 Body mass index (BMI) [Ratio] 56.6 kg/m2 Marybeth Bee DO Work Phone: [facility] [email or web address] [facility] 09-05-2023 16:57-0400 Body weight 210.92 kg Marybeth Bee DO Work Phone: [facility] [employer] 09-05-2023 16:57-0400 Diastolic blood pressure 78 mm[Hg] Marybeth Bee DO Work Phone: [facility] [email or web address] [facility] 09-05-2023 16:57-0400 Systolic blood pressure 124 mm[Hg] Marybeth Bee DO Work Phone: [facility] Encounters Encounter Date Encounter Type Care Provider Facility Start: 10-29-2024 End: 10-29-2024 Office outpatient visit 25 minutes Marybeth Bee DO Work Phone: [facility] Comment on above: Degenerative lumbar spinal stenosis (Primary Dx); Dermatitis; Class 3 severe obesity due to excess calories with serious comorbidity and body mass index (BMI) of 50.0 to 59.9 in adult ([facility]) Start: 10-29-2024 End: 10-29-2024 ambulatory [facility] Start: 07-09-2024 End: 07-09-2024 Refill Marybeth L Yuhas DO Work Phone: [facility] Comment on above: Class 3 severe obesi ty due to excess calories with serious comorbidity and body mass index (BMI) of 50.0 to 59.9 in adult [place] Start: 07-07-2024 End: 07-07-2024 Refill Marybeth Bee DO Work Phone: [facility] Comment on above: Essential hypertensi on; Anxiety; Gastroesophageal reflux disease, unspecified whether esophagitis present; Degenerative lumbar spinal stenosis Start: 07-04-2024 End: 07-04-2024 ambulatory [facility] Start: 07-04-2024 End: 07-04-2024 Office outpatient visit 25 minutes Marybeth Bee DO Work Phone: [facility] Comment on above: Essential hypertensi on (Primary Dx); Class 3 severe obesity due to excess calories with serious comorbidity and body mass index (BMI) of 50.0 to 59.9 in adult ([facility] JILLIAN (obstructive sleep apnea); Hyperlipidemia, unspecified hyperlipidemia type; Degenerative lumbar spinal stenosis Start: 07-04-2024 End: 07-04-2024 ambulatory [facility] Start: 06-06-2024 End: 06-06-2024 Refill Marybeth Bee DO Work Phone: [facility] Comment on above: Essential hypertensi on; Anxiety; Gastroesophageal reflux disease, unspecified whether esophagitis present; Degenerative lumbar spinal stenosis Start: 05-15-2024 End: 05-16-2024 Refill Marybeth Bee DO Work Phone: [facility] Comment on above: Degenerative lumbar spinal stenosis Start: 04-14-2024 End: 04-14-2024 Refill Marybeth Garcias DO Work Phone: [facility] Comment on above: Degenerative lumbar spinal stenosis Start: 03-04-2024 End: 03-04-2024 Refill Marybeth Garcias DO Work Phone: [facility] Comment on above: Degenerative lumbar spinal stenosis; Essential hypertension; Anxiety; Gastroesophageal reflux disease, unspecified whether esophagitis present Start: 02-01-2024 End: 02-05-2024 Refill Marybeth Garcias DO Work Phone: [facility] Comment on above: Anxiety; Gastroesophageal reflux disease, unspecified whether esophagitis present; Essential hypertension Degenerative lumbar spinal stenosis Start: 01-10-2024 End: 01-10-[address] Ham CNA [facility] Comment on above: Degenerative lumbar spinal stenosis Start: 01-07-2024 End: 01-07-2024 Refill Lizeth Turner CMA [facility] Comment on above: Degenerative lumbar spinal stenosis Start: 12-05-2023 End: 12-07-2023 Refill Marybeth Garcias DO Work Phone: [facility] Comment on above: Degenerative lumbar spinal stenosis Start: 10-29-2023 End: 10-29-2023 Refill Marybeth Garcias DO Work Phone: [facility] Comment on above: Degenerative lumbar spinal stenosis Start: 10-19-2023 End: 10-19-2023 Refill Marybeth Garcias DO Work Phone: [facility] Comment on above: Gastroesophageal ref lux disease, unspecified whether esophagitis present; Essential hypertension Start: 10-16-2023 End: 10-24-2023 Telephone encounter Marybeth Garcias DO Work Phone: [facility] Start: 09-05-2023 End: 09-05-2023 Office outpatient visit 15 minutes Marybeth Garcias DO Work Phone: [facility] Comment on above: Class 3 severe obesi ty due to excess calories with serious comorbidity and body mass index (BMI) of 50.0 to 59.9 in adult ([facility]) (Primary Dx); Essential hypertension; Degenerative lumbar spinal stenosis Start: 07-25-2023 Refill Marybeth Tim O Work Phone: [facility] Comment on above: Degenerative lumbar spinal stenosis Start: 07-16-2023 Telephone encounter Marybeth leon DO Work Phone: [facility] Start: 06-27-2022 End: 06-28-[address] MARYBETH BEE Facility: Procedures Date Procedure Procedure Detail Performing Clinician Start: 10-29-2024 Adult depression screening assessment Marybeth Bee DO Work Phone: Start: 07-04-2024 Adult depression screening assessment Marybeth Bee DO Work Phone: Start: 01-22-2023 Adult depression screening assessment Marybeth Bee DO Work Phone: Plan of Treatment Date Care Activity Detail Author Start: 07-04-2025 Adult BMI Screening Adult BMI Screen ing [facility] Start: 07-04-2025 Depression Screening Depression Scre ening [facility] Start: 07-04-2025 Tobacco Screening Tobacco Screening [facility] Start: 02-02-2025 Influenza vaccination Influenza Vacc ine [facility] Start: 09-04-2024 Adult BMI Screening Adult BMI Screen ing [facility] Start: 09-04-2024 Tobacco Screening Tobacco Screening [facility] Start: 08-05-2024 End: 08-05-2024 Telemedicine consultation with patient 08/05/2024 3:45 PM EST Telemedicine [facility] [address] [place] [address] Marybeth Bee DO [address] [place] [address] [facility] Start: 07-04-2024 End: 07-04-2024 Patient encounter procedure 07/04/2024 8:00 AM EST Office Visit [facility] [address] [place] [address] Marybeth Bee, [address] [place] [address] [facility] Start: 02-03-2024 COVID-19 Vaccine ( season) COVID-19 Vaccine ( season) [facility] Start: 02-03-2024 COVID-19 Vaccine ( season) COVID-19 Vaccine ( season) [facility] Start: 02-03-2024 Influenza vaccination Influenza Vacc ine [facility] Start: 01-23-2024 Adult BMI Screening Adult BMI Screen ing [facility] Start: 01-23-2024 Depression Screening Depression Scre ening [facility] Start: 01-23-2024 Tobacco Screening Tobacco Screening [facility] Start: 02-02-2023 COVID-19 Vaccine ( season) COVID-19 Vaccine ( season) [facility] Start: 02-02-2023 Influenza vaccination Influenza Vacc ine [facility] Start: 2001 DTaP,Tdap and Td Vaccines (1 - Tdap) DTaP,Tdap and Td Vaccines (1 - Tdap) [facility] Start: 2000 Adult BMI Follow Up Plan Adult BMI Follow Up Plan [facility] End: 07-04-2025 Comprehensive metabolic 2000 panel - Serum or Plasma Comprehensive metabolic panel Lab Routine Hyperlipidemia, unspecified hyperlipidemia type 1 Occurrences starting 07/04/2024 until 07/04/2025 [facility] Work Phone: Comment on above: 1 Occurrences starti ng 07/04/2024 until 07/04/2025 End: 07-04-2025 Lipid 1996 panel - Serum or Plasma Lipid profile Lab Routine Hyperlipidemia, unspecified hyperlipidemia type 1 Occurrences starting 07/04/2024 until 07/04/2025 [facility] Comment on above: 1 Occurrences starti ng 07/04/2024 until 07/04/2025 Payers Date Payer Category Payer Commercial Managed C are - PPO [employer] [id number] 2021 Unknown [employer] [facility] [id number] 2021-Present [phone] [address] [place] [address] [id number] 1982 Unknown [id number] 1982 Unknown [id number] 1982 Unknown [id number] 1982 Unknown [id number] 1959 Unknown [id number] Social History Date Type Detail Facility Start: 07-05-2022 [facility] Start: 07-05-2022 Tobacco use and exposure Smoke less tobacco non-user [facility] Start: 09-05-2023 End: 10-29-2024 Alcoholic beverage intake Ex-drinker (finding) [facility] Start: 06-26-2022 End: 10-29-2024 History of Social function [facility] Start: 06-26-2022 End: 10-29-2024 Social connection and isolation panel [facility] Do you belong to any clubs or organizations such as yazidi groups, unions, fraternal or athletic groups, or school groups? No [facility] Are you now , , , , never or living with a partner? [facility] How often to you hav e a drink containing alcohol? Never [facility] How many standard dr inks containing alcohol do you have on a typical day? Patient does not drink [facility] How hard is it for y ou to pay for the very basics like food, housing, medical care, and heating Somewhat hard [facility] Do you feel stress - tense, restless, nervous, or anxious, or unable to sleep at night because your mind is troubled all the time - these days [OSQ] Only a little [facility] Start: 06-26-2022 Education 15 [facility] Start: 1980 Sex assigned at Not on file [facility] Start: 01-07-2015 Sex Male (finding) [facility] How hard is it for y ou to pay for the very basics like food, housing, medical care, and heating Not very hard [facility] Clinical Notes 07-16-2023 to 10-29-2024 Marybeth Bee, DO - 10/29/2024 12:30 PM Cyril Bee, DO - 07/04/2024 8:00 AM ESTTelephone Encounter - Darby Ham CNA - 01/10/2024 12:33 PM Cyril Bee, - 09/05/2023 4:30 PM EDT Note Date & Type Note Facility 10-29-2024 History of Presen t illness Narrative IM PROGRESS NOTE Patient - Junior Collins [...] (BMI) of 50.0 to 59.9 in adult ([facility]) -currently on phentermine and topiramate -advised patient [...] weight since starting phentermine and topiramate. However has not been taking either medication routinely. Dermatological: Complains of some pruritic, slightly raised lesions on both forearms along the extensor surface. No discoloration, but is located within the area of his tattoos bilaterally.. Exam BP 118/72 (BP Site: Left Arm, BP Postition: Sitting, BP CUFF SIZE: L (13-17 inches)) Pulse 92 Temp 36.4 C (97.5 F) (Tympanic) Resp 20 Ht 193 cm (6' 3.98 ) Wt (!) 213.6 kg (471 lb) SpO2 100% BMI 57.36 kg/m Physical Exam Vitals reviewed. Constitutional: General: He [...] paraspinals, bilateral SI joints and bilateral sciatic notch) present. Right lower leg: No edema. Left lower leg: No edema. Comments: Lumbar flexion limited at 45 . Lumbar extension limited at 0 with pain Skin: General: Skin is warm [...] per tablet, Take 1 tablet by mouth in the morning., Disp: 90 tablet, Rfl: 1 meloxicam [...] ml/min/1.73sq.m Final Other Testing No results found. Marybeth Bee DO., [facility] Office: [phone] documented in this encounter [email or web address] 07-04-2024 History of Presen t illness Narrative IM PROGRESS NOTE Patient - Junior Collins Age - 43 y.o. - 1980 ASSESSMENT & PLAN 1. Essential hypertension (Primary) -goals of treatment reviewed with the patient -office readings are at goal. I encourage patient to start checking more routinely at home. -continue lisinopril-HCTZ 20-25 daily 2. Class 3 severe obesity due to excess calories with serious comorbidity and body mass index (BMI) of 50.0 to 59.9 in adult ([facility]) -patient is aware he needs to have weight loss -in the past had success with a trial of Ozempic, as well as phentermine. -with his sleep apnea, is a good candidate to try Zepbound. Prescription sent today. -if not covered, we will proceed with a regimen of phentermine plus topiramate 3. JILLIAN (obstructive sleep apnea) -STOP-BANG score 6/7 today. High likelihood of sleep apnea. -Zepbound prescribed. - tirzepatide, weight loss, (ZEPBOUND) 5 mg/0.5 mL pen injector; Inject 5 mg under the skin every 7 days. Dispense: 6 mL; Refill: 1 4. Hyperlipidemia, unspecified hyperlipidemia type -not currently on medication -most recent LDL 79 mg/dL - Comprehensive metabolic panel; Future - Lipid profile; Future 5. Degenerative lumbar spinal stenosis -continue to work on weight loss Subjective CARDIOVASCULAR FOLLOW-UP This is a follow up of a pre-existing problem. Blood pressures are not being checked outside the office. Frequency: sporadic Readings have been unknown . BP readings outside the office range from unknown systolic and unknown diastolic. The 10-year ASCVD risk score (Arlette GARCIA, et al., 2019) is: 0.8%* Values used to calculate the score: Age: 43 years Sex: Male Is Non- : No Diabetic: No Tobacco smoker: No Systolic Blood Pressure: 120 mmHg Is BP treated: Yes HDL Cholesterol: 45 mg/dL* Total Cholesterol: 146 mg/dL* * - Cholesterol units were assumed for this score calculation Patient reports following dosing instructions. Still on lisinopril-HCTZ 20-25 daily Physical activity: The patient does not participate in regular exercise at present. Dietary efforts show meat and potatoes, limited vegetables. CV symptoms review was negative for rapid or irregular heart rate, palpitations, syncope A review of systems was negative except for the following: General: sleep disturbance and weight gain Psychiatric: anxiety and has been well controlled with current dose of Zoloft. Endocrine: Previously on Ozempic, but was not covered by insurance. Was on phentermine which did help, but due to loss of insurance was unable to keep his routine appointments. Respiratory: STOP-BANG score 6/7 today. High likelihood of JILLIAN. Patient was unable to get sleep testing done because of lack of insurance. Musculoskeletal: joint stiffness and involves his low back and knees and shoulders. Exam BP 120/72 (BP Site: Left Arm, BP Postition: Sitting) Pulse 97 Temp 36.3 C (97.4 F) (Tympanic) Ht 193 cm (6' 4 ) Wt (!) 215.6 kg (475 lb 6.4 oz) SpO2 98% BMI 57.87 kg/m Physical Exam Vitals reviewed. Constitutional: General: He is not in acute distress. Appearance: He is obese. He is not toxic-appearing. HENT: Head: Normocephalic. Right Ear: External ear normal. Left Ear: External ear normal. Nose: Nose normal. Mouth/Throat: Mouth: Mucous membranes are moist. Eyes: General: No scleral icterus. Neck: Vascular: No carotid bruit. Cardiovascular: Rate and Rhythm: Normal rate and regular rhythm. Pulses: Normal pulses. Heart sounds: No murmur heard. No gallop. Pulmonary: Effort: Pulmonary effort is normal. Breath sounds: Wheezing present. No rales. Abdominal: Palpations: Abdomen is soft. Musculoskeletal: Right lower leg: No edema. Left lower leg: No edema. Skin: General: Skin is warm and dry. Coloration: Skin is not jaundiced. Findings: No bruising. Neurological: Mental Status: He is alert and oriented to person, place, and time. Motor: No weakness. Coordination: Coordination normal. Psychiatric: Mood and Affect: Mood normal. Behavior: Behavior normal. Meds Current Outpatient Medications: baclofen (LIORESAL) 10 mg tablet, Take 1 tablet (10 mg total) by mouth 3 (three) times a day., Disp: 30 tablet, Rfl: 0 famotidine (PEPCID) 20 mg tablet, Take 1 tablet (20 mg total) by mouth in the morning and 1 tablet (20 mg total) before bedtime., Disp: 180 tablet, Rfl: 0 lisinopril-hydroCHLOROthiazide (PRINZIDE,ZESTORETIC) 20-25 mg per tablet, Take 1 tablet by mouth in the morning., Disp: 90 tablet, Rfl: 0 meloxicam (MOBIC) 15 mg tablet, Take 1 tablet (15 mg total) by mouth in the morning., Disp: 30 tablet, Rfl: 0 sertraline (ZOLOFT) 50 mg tablet, Take 1 tablet (50 mg total) by mouth in the morning., Disp: 90 tablet, Rfl: 0 tirzepatide, weight loss, (ZEPBOUND) 5 mg/0.5 mL pen injector, Inject 5 mg under the skin every 7 days., Disp: 6 mL, Rfl: 1 Lab Results No visits with results within 1 Month(s) from this visit. Latest known visit with results is: Orders Only on 07/07/2022 Component Date Value Ref Range Status External Cholesterol 06/27/2022 146 0 - 200 Final External Cholesterol:Hdl 06/27/2022 3.2 (A) 3.3 - 11.0 Final External Hdl Cholesterol 06/27/2022 45 40 - 60 Final External Ldl (Calc) 06/27/2022 79.8 Final External Triglycerides 06/27/2022 106 0 - 150 Final External Very Low Lipoprotein 06/27/2022 21.2 Final External Albumin 06/27/2022 3.2 (A) 3.4 - 5 Final External Alt Sgpt 06/27/2022 24 15 - 37 Final External Anion Gap 06/27/2022 12.8 Final External Ast 06/27/2022 16 15 - 37 Final External Blood Urea Nitrogen Bun 06/27/2022 20 (A) 7 - 18 Final External Calcium Ca 06/27/2022 9.1 8.5 - 10.1 Final External Chloride 06/27/2022 100 98 - 107 Final External Co2 / Carbon Dioxide 06/27/2022 29.3 21 - 32 Final External Creatinine 06/27/2022 0.97 0.7 - 1.30 Final External Gfr Amer 06/27/2022 >60 Final External Gfr Non Amer 06/27/2022 >60 Final External Alkaline Phosphatase 06/27/2022 79 46 - 116 Final External Glucose Fasting Or Rando* 06/27/2022 102 74 - 106 Final External Potassium K 06/27/2022 5.1 3.5 - 5.1 Final External Sodium Na 06/27/2022 137 (A) 3.5 - 5.1 Final Total Bilirubin 06/27/2022 0.3 0.2 - 1.0 Final External Total Protein 06/27/2022 8.2 6.4 - 8.2 Final Other Testing No results found. Marybeth Bee DO., [facility] Office: [phone] documented in this encounter [facility] 01-10-2024 Miscellaneous Notes Formattin g of this note might be different from the original. Junior called to request Meloxicam be sent to [facility] at this time, previously sent to [facility]. documented in this encounter [facility] 01-10-2024 Telephone encount er Note Junior called to request Meloxicam be sent to [facility] at this time, previously sent to [facility]. [facility] 10-16-2023 Miscellaneous Notes Formattin g of this note might be different from the original. ----- Message from Marybeth Bee DO sent at 09/05/2023 5:10 PM EDT ----- Weight recheck - Phentermine Lm on VM Lm on VM Sending letter documented in this encounter [facility] 10-16-2023 Telephone encount er Note ----- Message from Marybeth Bee DO sent at 09/05/2023 5:10 PM EDT ----- Weight recheck - Phentermine [facility] 10-16-2023 Telephone encount er Note Lm on VM [facility] 10-16-2023 Telephone encount er Note Lm on VM [facility] 10-16-2023 Telephone encount er Note Sending letter [facility] [email or web address] [facility] 09-05-2023 History of Presen t illness Narrative IM PROGRESS NOTE Patient - Junior Collins Age - 42 y[facility] 1980 [id number] ASSESSMENT & PLAN Video Visit via Real-time Synchronous Audiovisual Provider Location: [facility] - [facility] MEDIC[facility] [address] [facility] [address] Patient Location: Car Video Visit Consent Statement: I discussed risks, benefits, and alternatives of a real-time synchronous audiovisual consultation with the patient (and any accompanying persons) including the risks that the patient's personal health details and medical records will be discussed over real-time, synchronous, interactive video/audio/telecommunication technology, the visit will not be recorded without the express consent of both the provider and the patient, and that there are some limitations compared to [id number] evaluations. The patient consented to the presence of additional virtual and/or in-person participants. We elected to proceed. 1. Class 3 severe obesity due to excess calories with serious comorbidity and body mass index (BMI) of 50.0 to 59.9 in adult ([facility]) -we discussed his goals of weight loss. His initial goals to get less than 400 lb. -he previously has received instruction on diet. -at the current time he is unable to participate regularly in exercise because of his orthopedic limitations -previously on Wegovy with prescription, and tolerated it well. We did discuss using a compounded formulation of semaglutide through [facility] in [place]. Cost estimate would be anywhere 100-200 dollars a month. He will investigate this, and look at his finances. -more affordable would be phentermine 37.5 mg daily. We reviewed the potential side effects both with anxiety, hypertension palpitations, dry mouth and sleeplessness. He is willing to try this as a start. -Rx for phentermine sent to [email or web address] 2. Essential hypertension -home readings as stated today are at goal -continue to monitor -continue lisinopril-HCTZ 3. Degenerative lumbar spinal stenosis -worsened by weight increase -using meloxicam for relief -will work on weight loss as above Subjective 42-year-old male presents for discussion on weight loss. He is gained 20-25 lb over the past several months. Previously had been taking Wegovy, but no longer has health insurance through his employer, and could not afford to take it any longer. -with increased weight, he is noticing more musculoskeletal problems. His knees and back will hurt if he is walking too far or too long. Typically can go about 40-50 yd and has to stop. 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 Still taking his Zoloft. -he is wondering about using alternatives to the Wegovy to help with medical weight loss A review of systems was negative except for the following: General: weight gain Psychiatric: anxiety Musculoskeletal: gait disturbance, joint pain, and joint stiffness Cardiovascular: Denies any palpitations, lightheadedness or dizziness.. Exam BP 124/78 Wt (!) 210.9 kg (465 lb) BMI 56.60 kg/m Physical Exam Vitals reviewed. Constitutional: General: He is not in acute distress. Appearance: He is obese. He is not toxic-appearing. HENT: Head: Normocephalic. Eyes: General: No scleral icterus. Skin: General: Skin is warm and dry. Coloration: Skin is not jaundiced. Neurological: Mental Status: He is alert. Psychiatric: Mood and Affect: Mood normal. Behavior: Behavior normal. Meds Current Outpatient Medications: famotidine (PEPCID) 20 mg tablet, Take 1 tablet (20 mg total) by mouth in the morning and 1 tablet (20 mg total) before bedtime., Disp: 180 tablet, Rfl: 1 lisinopril-hydroCHLOROthiazide (PRINZIDE,ZESTORETIC) 20-25 mg per tablet, Take 1 tablet by mouth in the morning., Disp: 90 tablet, Rfl: 1 meloxicam (MOBIC) 15 mg tablet, take 1 tablet by mouth every morning, Disp: 30 tablet, Rfl: 2 sertraline (ZOLOFT) 50 mg tablet, Take 1 tablet (50 mg total) by mouth in the morning., Disp: 90 tablet, Rfl: 1 Lab Results No visits with results within 1 Month(s) from this visit. Latest known visit with results is: Orders Only on 07/07/2022 Component Date Value Ref Range Status External Cholesterol 06/27/2022 146 0 - 200 Final External Cholesterol:Hdl 06/27/2022 3.2 (A) 3.3 - 11.0 Final External Hdl Cholesterol 06/27/2022 45 40 - 60 Final External Ldl (Calc) 06/27/2022 79.8 Final External Triglycerides 06/27/2022 106 0 - 150 Final External Very Low Lipoprotein 06/27/2022 21.2 Final External Albumin 06/27/2022 3.2 (A) 3.4 - 5 Final External Alt Sgpt 06/27/2022 24 15 - 37 Final External Anion Gap 06/27/2022 12.8 Final External Ast 06/27/2022 16 15 - 37 Final External Blood Urea Nitrogen Bun 06/27/2022 20 (A) 7 - 18 Final External Calcium Ca 06/27/2022 9.1 8.5 - 10.1 Final External Chloride 06/27/2022 100 98 - 107 Final External Co2 / Carbon Dioxide 06/27/2022 29.3 21 - 32 Final External Creatinine 06/27/2022 0.97 0.7 - 1.30 Final External Gfr Amer 06/27/2022 >60 Final External Gfr Non Amer 06/27/2022 >60 Final External Alkaline Phosphatase 06/27/2022 79 46 - 116 Final External Glucose Fasting Or Rando* 06/27/2022 102 74 - 106 Final External Potassium K 06/27/2022 5.1 3.5 - 5.1 Final External Sodium Na 06/27/2022 137 (A) 3.5 - 5.1 Final Total Bilirubin 06/27/2022 0.3 0.2 - 1.0 Final External Total Protein 06/27/2022 8.2 6.4 - 8.2 Final Other Testing No results found. Marybeth Bee DO., [facility] Office: [phone] documented in this encounter [facility] 07-16-2023 Miscellaneous Notes Formattin g of this note might be different from the original. ----- Message from Mayrbeth Bee DO sent at 12/28/2022 3:21 PM EDT ----- Weight recheck/lab/BP Called twice sending letter documented in this encounter [facility] 07-16-2023 Telephone encount er Note ----- Message from Marybeth eBe DO sent at 12/28/2022 3:21 PM EDT ----- Weight recheck/lab/BP [facility] 07-16-2023 Telephone encount er Note Called twice sending letter [facility] Evaluation note Diagnosis Degenerative lumbar spinal stenosis Spinal stenosis of lumbar region [facility] Diagnosis Essential hypertension Unspecified essential hypertension Anxiety Anxiety state, unspecified Gastroesophageal reflux disease, unspecified whether esophagitis present Degenerative lumbar spinal stenosis Spinal stenosis of lumbar region [facility] Diagnosis Essential hypertension- Primary Unspecified essential hypertension Class 3 severe obesity due to excess calories with serious comorbidity and body mass index (BMI) of 50.0 to 59.9 in adult [place] JILLIAN (obstructive sleep apnea) Obstructive sleep apnea (adult) (pediatric) Hyperlipidemia, unspecified hyperlipidemia type Degenerative lumbar spinal stenosis Spinal stenosis of lumbar region [facility] Essential hypertension Unspecified essential hypertension Anxiety Anxiety state, unspecified Gastroesophageal reflux disease, unspecified whether esophagitis present Degenerative lumbar spinal stenosis Spinal stenosis of lumbar region [facility] Diagnosis Class 3 severe obesity due to excess calories with serious comorbidity and body mass index (BMI) of 50.0 to 59.9 in adult ([facility] [facility] Diagnosis Gastroesophageal reflux disease, unspecified whether esophagitis present Essential hypertension Unspecified essential hypertension [facility] Diagnosis Degenerative lumbar spinal stenosis Spinal stenosis of lumbar region [facility] Diagnosis Class 3 severe obesity due to excess calories with serious comorbidity and body mass index (BMI) of 50.0 to 59.9 in adult ([facility] Primary Essential hypertension Unspecified essential hypertension Degenerative lumbar spinal stenosis Spinal stenosis of lumbar region [facility] Diagnosis Anxiety Anxiety state, unspecified Gastroesophageal reflux disease, unspecified whether esophagitis present Essential hypertension Unspecified essential hypertension [facility] Diagnosis Degenerative lumbar spinal stenosis Spinal stenosis of lumbar region Essential hypertension Unspecified essential hypertension Anxiety Anxiety state, unspecified Gastroesophageal reflux disease, unspecified whether esophagitis present [facility] Diagnosis Degenerative lumbar spinal stenosis Spinal stenosis of lumbar region [facility] Diagnosis Degenerative lumbar spinal stenosis Spinal stenosis of lumbar region [facility] Diagnosis Degenerative lumbar spinal stenosis- Primary Spinal stenosis of lumbar region Dermatitis Contact dermatitis and other eczema, due to unspecified cause Class 3 severe obesity due to excess calories with serious comorbidity and body mass index (BMI) of 50.0 to 59.9 in adult ([facility] [facility] filed[facility] this [facility] filedocumented in this encounter [facility] filedocumented in this [facility] filedocumented in this encounter [facility] filedocumented in this encounter [facility] filedocumented in this encounter [facility] filedocumented in this encounter [facility] filedocumented in this encounter [facility] on filedocumented in this encounter [facility] filedocumented in this encounter [facility] filedocumented in this encounter [facility] filedocumented in this encounter [facility] Summary Purpose Family History No Family History Records FoundNo Family History Records FoundNo Family History Records FoundNo Family History Records Found Advance Directives No Advanced Directives Records FoundNo Advanced Directives Records FoundNo Advanced Directives Records FoundNo Advanced Directives Records Found Reason for Referral Specialty Diagnoses / Procedures Referred By Stella montes Referred To Contact Diagnoses Class 3 severe obesity due to excess calories with serious comorbidity and body mass index (BMI) of 50.0 to 59.9 in adult ([facility]) Marybeth Bee, DO [address] [place] [address] Referral ID Status Reason Start Date Expiration Date V isits Requested Visits Authorized [id number] Pending Review 1 1 Additional Source Comments (unrecognized sect ion and content) No Status Records FoundNo Status Records FoundNo Status Records FoundNo Status Records Found INFORMATION SOURCE (unrecogn ized section and content) DATE CREATED AUTHOR 08/05/2021 [facility] DATE CREATED AUTHOR AUTHOR'S ORGANIZ ATION 09/07/2022 [facility] DATE CREATED AUTHOR AUTHOR'S ORGANIZ ATION 07/07/2024 [facility] DATE CREATED AUTHOR AUTHOR'S ORGANIZ ATION 11/01/2024 [facility] Reason for Visit (unrecogniz ed section and content) Reason Onset Date Comments Med Refill 04/14/2024 Reason Onset Date Comments Med Refill 06/06/2024 Reason Comments 6 month check up Reason Onset Date Comments Med Refill 07/07/2024 Reason Comments Med Change Request Reason Comments Med Refill Reason Onset Date Comments Med Refill 12/05/2023 Reason Onset Date Comments Med Refill 01/07/2024 Reason Onset Date Comments Med Refill 01/10/2024 Reason Onset Date Comments Med Refill 02/01/2024 Reason Onset Date Comments Med Refill 05/15/2024 Reason Comments back issues/ rash on arm Care Teams (unrecognized sec tion and content) 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 Relationship Specialty Start Date End Date Marybeth Bee DO [address] [place] [address] PCP - General Internal Medicine 06/13/22 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 Relationship Specialty Start Date End Date Marybeth Bee DO [address] [place] [address] PCP - General Internal Medicine 06/13/22 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 Relationship Specialty Start Date End Date Marybeth Bee DO [address] [place] [address] PCP - General Internal Medicine 06/13/22 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 Relationship Specialty Start Date End Date Marybeth Bee DO [address] [place] [address] PCP - General Internal Medicine 06/13/22 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 Relationship Specialty Start Date End Date Marybeth Bee DO [address] [place] [address] PCP - General Internal Medicine 06/13/22 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 Relationship Specialty Start Date End Date Marybeth Bee DO [address] [place] [address] PCP - General Internal Medicine 06/13/22 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 Relationship Specialty Start Date End Date Marybeth Bee DO [address] [place] [address] PCP - General Internal Medicine 06/13/22 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 Relationship Specialty Start Date End Date Marybeth Bee DO [address] [place] [address] PCP - General Internal Medicine 06/13/22 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 Relationship Specialty Start Date End Date Marybeth Bee DO [address] [place] [address] PCP - General Internal Medicine 06/13/22 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 Relationship Specialty Start Date End Date Marybeth Bee DO [address] [place] [address] PCP - General Internal Medicine 06/13/22 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 This clinical summary was aggregated from multiple sources. Caution should be exercised in using it in the provision of clinical care. This summary normalizes information from multiple sources, and as a consequence, information in this document may materially change the coding, format and clinical context of patient data. In addition, data may be omitted in some cases. CLINICAL DECISIONS SHOULD BE BASED ON THE PRIMARY CLINICAL RECORDS. [facility] [employer] [facility]. provides no warranty or guarantee of the accuracy or completeness of information in this document.
[2024-11-09] VITALS (75 sets, daily range): BP systolic 115–142; BP diastolic 60–103; PULSE 71–137; TEMP 36.6–36.8; O2SAT 93–100; BMI 56.0; BMI 55.4
--- NOTE | 2024-11-09 00:02 | ECG_ITS ---
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 Measurements Intervals Tichnor Rate: 128 P: -[id number] AK: -[id number] QRS: 83 QRSD: 90 T: 13 QT: 310 QTc: 386 Interpretive Statements 17658 Atrial fibrillation with rapid ventricular response Nonspecific ST-T wave changes 9140 abnormal rhythm ECG Compared to ECG 01/23/2020 15:14:02 Sinus rhythm no longer present Electronically Signed On 11-09-2024 19:57:20 EDT by ANTONIO RAMAN M.D.
--- NOTE | 2024-11-09 00:14 | ED.CHESTPAI1 ---
HPI - Chest Pain General Chief Complaint: Chest Pain Stated Complaint: palpitations Time Seen by Provider: 11/09/24 00:10 Source: patient Mode of arrival: walk-in History of Present Illness HPI narrative: presents complaining of palpitations that started around 11:30pm tonight. No associated chest pain or dyspnea. Past history of HTN and recently started adipex in the past month to help him loose weight. no light headiness or fever Related Data Home Medications ?Medication ?Instructions ?Recorded ?Confirmed baclofen 10 mg tablet 10 mg PO TID 11/09/24 11/09/24 phentermine 37.5 mg capsule 37.5 mg PO QAM 11/09/24 11/09/24 Allergies Allergy/AdvReac Type Severity Reaction Status Date / Time No Known Drug Allergies Allergy Verified 02/11/24 16:52 Review of Systems ROS Status of ROS 10 or more systems reviewed and unremarkable except as noted in history and below [facility] Medical History (Updated 11/09/24 @ 02:24 by Teja Mccoy MD) HTN (hypertension) ?I10 - Essential (primary) hypertension (ICD-10) Social History Little interest or pleasure in doing things: not at all Feeling down, depressed, or hopeless: not at all Exam Constitutional Vital Signs, click to edit/add: Last Vital Signs Temp 98.1 F 11/09/24 00:04 Pulse 85 11/09/24 02:16 Resp 19 11/09/24 02:16 BP 135/63 11/09/24 02:16 Pulse Ox 97 11/09/24 02:16 O2 Del Method Room Air 11/09/24 00:16 Common normals: no apparent distress, oriented x3, no limitations, healthy appearing, alert and well nourished [facility] Common normals: normocephalic and head/scalp atraumatic Eye Common normals: PERRL and EOMs intact bilaterally Respiratory Common normals: normal respiratory effort, no retractions, no use of accessory muscles and clear to auscultation bilaterally Cardio Common normals: regular rate, regular rhythm, S1 normal heart sound and S2 normal heart sound GI Common normals: Normal to inspection, nondistended, normoactive bowel sounds present, soft to palpation and non-tender Extremity Common normals: normal to inspection and full ROM Neuro Common normals: oriented x3, CN's II-XII intact bilaterally and moves all extremities Psych Appearance: grossly normal Course Vital Signs Vital signs: Vital Signs Pulse Oximetry 99 11/09/24 00:01 Temperature 98.1 F 11/09/24 00:04 Pulse Rate 85 11/09/24 02:16 Respiratory Rate 19 11/09/24 02:16 Blood Pressure 135/63 11/09/24 02:16 Pulse Oximetry 97 11/09/24 02:16 Oxygen Delivery Method Room Air 11/09/24 00:16 MDM - Chest Pain MDM Narrative Medical decision making narrative: patient presents complaining of palpitations in his chest. found to have A. fib with RVR. cxray per my review is unremarkable. d-dimer and troponin neg. Patient started on diltiazem drip. Discussed with hospitalist and she would also like heparin ordered. Patient admitted to step down Lab Data Labs: Lab Results 11/09/24 Range/Units 00:13 WBC 9.3 (4.0-11.0) 10^3/uL RBC 4.81 (4.70-6.10) 10^6/uL Hgb 14.1 (14.0-18.0) g/dL Hct 40.5 L (42.0-54.0) % MCV 84.2 (80.0-94.0) fL MCH 29.3 (25.9-34.0) pg MCHC 34.8 (29.9-35.2) g/dL RDW 14.5 (11.0-15.0) % Plt Count 229 (150-450) 10^3/uL MPV 10.7 (9.5-13.5) fL Neut % (Auto) 64.3 (43.0-75.0) % Lymph % (Auto) 24.2 (20.5-60.0) % [place] % (Auto) 9.2 (1.7-12.0) % Eos % (Auto) 1.3 (0.9-7.0) % Baso % (Auto) 0.7 (0.2-2.0) % Neut # (Auto) 6.0 (1.4-6.5) 10^3/uL Lymph # (Auto) 2.3 (1.2-3.8) 10^3/uL [place] # (Auto) 0.9 H (0.3-0.8) 10^3/uL Eos # (Auto) 0.1 (0.0-0.7) 10^3/uL Baso # (Auto) 0.1 (0.0-0.1) 10^3/uL Abs Immat Gran (auto) 0.03 (0.00-0.03) 10^3/uL Imm/Tot Granulo (auto) 0.3 (0.0-0.5) % D-Dimer 0.19 (<=0.59) mg/L FEU Sodium 131 L (136-145) mmol/L Potassium 4.0 (3.5-5.1) mmol/L Chloride 94 L (98-107) mmol/L Carbon Dioxide 24.6 (21.0-32.0) mmol/L Anion Gap 16.4 BUN 35.0 H (7.0-18.0) mg/dL Creatinine 1.20 (0.70-1.30) mg/dL Est GFR ( Amer) >60 (>=60 mL/min/1.73m^2) Est GFR (Non-Af Amer) >60 (>=60 mL/min/1.73m^2) BUN/Creatinine Ratio 29.2 Glucose 106 (74-106) mg/dL Calcium 9.5 (8.5-10.1) mg/dL Troponin I High Sens 5.6 (4.0-76.1) pg/mL Discharge Plan Discharge Chief Complaint: Chest Pain Clinical Impression: Atrial fibrillation with RVR Patient Disposition: Admitted as Observation
--- NOTE | 2024-11-09 00:17 | XR_ITS ---
[address] [address] Patient Name: BUD CARBALLO MRN: [id number] date: 1980 Sex: M Assigned Patient Location: ER Current Patient Location: [place] Accession/Order Number: [id number] Exam Date: 11/09/2024 09:46 Report Date: 11/09/2024 09:47 At the request of: DANA MCALLISTER MD Procedure: XR chest 1V Plain film chest Single view HISTORY: Heart palpitations COMPARISON: None FINDINGS: SUPPORT DEVICES: None POSTSURGICAL CHANGES: None HEART: Within normal limits PULMONARY EVETTE: Within normal limits MEDIASTINUM: Unremarkable LUNGS AND PLEURA: No acute lung process, pleural effusion or pneumothorax identified. BONY STRUCTURES: Intact ADDITIONAL FINDINGS None XR/XR chest 1V IMPRESSION: No acute process. Impression dictated by: Bernabe Singh M.D. 11/09/2024 9:47 AM Dictation Location: [place] [address] Electronically authenticated by: [id number] Y Date: 11/09/2024 09:47
[2024-11-09 00:29] LABS: Basophils Absolute Auto 0.1 10^3/uL (0.0-0.1); Basophils Percent Auto 0.7 % (0.2-2.0); Eosinophils Absolute Auto 0.1 10^3/uL (0.0-0.7); Eosinophils Percent Auto 1.3 % (0.9-7.0); Hematocrit 40.5 % (42.0-54.0); Hemoglobin 14.1 g/dL (14.0-18.0); Immature Granulocytes Abs Auto 0.03 10^3/uL (0.00-0.03); Immature Granulocytes Pct Auto 0.3 % (0.0-0.5); Lymphocytes Absolute Auto 2.3 10^3/uL (1.2-3.8); Lymphocytes Percent Auto 24.2 % (20.5-60.0); Mean Corpuscular HGB Conc 34.8 g/dL (29.9-35.2); Mean Corpuscular Hemoglobin 29.3 pg (25.9-34.0); Mean Corpuscular Volume 84.2 fL (80.0-94.0); Mean Platelet Volume 10.7 fL (9.5-13.5); Monocytes Absolute Auto 0.9 10^3/uL (0.3-0.8); Monocytes Percent Auto 9.2 % (1.7-12.0); Neutrophils Percent Auto 64.3 % (43.0-75.0); Platelet Count 229 10^3/uL (150-450); Red Blood Count 4.81 10^6/uL (4.70-6.10); Red Cell Distribution Width 14.5 % (11.0-15.0); White Blood Count 9.3 10^3/uL (4.0-11.0)
--- NOTE | 2024-11-09 00:35 | ECG_ITS ---
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 Measurements Intervals [place] Rate: 120 P: -[id number] [place]: -[id number] QRS: 81 QRSD: 88 T: 26 QT: 336 QTc: 407 Interpretive Statements 76171 Atrial fibrillation with rapid ventricular response Nonspecific ST-T wave changes 9140 abnormal rhythm ECG Compared to ECG 11/09/2024 00:02:24 No significant changes Electronically Signed On 11-09-2024 19:57:40 EDT by ANTONIO RAMAN M.D.
[2024-11-09 00:41] LABS: D Dimer 0.19 mg/L FEU (<=0.59)
[2024-11-09] MEDS: DILTIAZEM HCL 25 MG/5 ML VIAL 10 MG IV (00:43)
[2024-11-09 00:45] LABS: Anion Gap 16.4; BUN Creatinine Ratio 29.2; Calcium 9.5 mg/dL (8.5-10.1); Carbon Dioxide 24.6 mmol/L (21.0-32.0); Chloride 94 mmol/L (98-107); Estimated GFR (African America >60 (>=60 mL/min/1.73m^2); Estimated GFR (Non-African Ame >60 (>=60 mL/min/1.73m^2); Glucose 106 mg/dL (74-106); Sodium 131 mmol/L (136-145); Troponin I High Sensitivity 5.6 pg/mL (4.0-76.1)
[2024-11-09] MEDS: dilTIAZem HCL 125 MG in 0.9 % SODIUM CHLORIDE 100 ML IV (00:58)
--- NOTE | 2024-11-09 01:00 | ECG_ITS ---
[facility] Test Date: 2024-11-09 Pat Name: BUD CARBALLO Department: Room: - Gender: Male [employer]: : 1980 Requested By: [id number] Order Number: [id number] Reading MD: ANTONIO RAMAN M.D. Measurements Intervals [place] Rate: 89 P: -02927 [place]: -[id number] QRS: 87 QRSD: 80 T: 52 QT: 348 QTc: 394 Interpretive Statements [address]-T wave changes 9140 abnormal rhythm ECG Compared to ECG 11/09/2024 00:35:08 Heart rate has decreased Electronically Signed On 11-09-2024 19:59:28 EDT by ANTONIO RAMAN M.D.
[2024-11-09] MEDS: ENOXAPARIN SODIUM 100 MG/ML SYRINGE 200 MG SUBQ (04:08)
[2024-11-09 05:43] LABS: Basophils Absolute Auto 0.1 10^3/uL (0.0-0.1); Basophils Percent Auto 0.7 % (0.2-2.0); Eosinophils Absolute Auto 0.1 10^3/uL (0.0-0.7); Eosinophils Percent Auto 0.9 % (0.9-7.0); Hematocrit 41.9 % (42.0-54.0); Hemoglobin 14.6 g/dL (14.0-18.0); Immature Granulocytes Abs Auto 0.03 10^3/uL (0.00-0.03); Immature Granulocytes Pct Auto 0.4 % (0.0-0.5); Lymphocytes Absolute Auto 1.9 10^3/uL (1.2-3.8); Lymphocytes Percent Auto 21.6 % (20.5-60.0); Mean Corpuscular HGB Conc 34.8 g/dL (29.9-35.2); Mean Corpuscular Volume 83.1 fL (80.0-94.0); Mean Platelet Volume 10.3 fL (9.5-13.5); Monocytes Absolute Auto 0.7 10^3/uL (0.3-0.8); Monocytes Percent Auto 8.1 % (1.7-12.0); Neutrophils Absolute Auto 5.8 10^3/uL (1.4-6.5); Neutrophils Percent Auto 68.3 % (43.0-75.0); Platelet Count 209 10^3/uL (150-450); Red Blood Count 5.04 10^6/uL (4.70-6.10); Red Cell Distribution Width 14.3 % (11.0-15.0); White Blood Count 8.6 10^3/uL (4.0-11.0)
[2024-11-09 06:02] LABS: Troponin I High Sensitivity 7.1 pg/mL (4.0-76.1)
[2024-11-09 06:06] LABS: INR 1.03; Partial Thromboplastin Time 37.7 sec (22.3-36.2); Prothrombin Time 10.9 sec (9.0-11.6)
[2024-11-09 06:07] LABS: Alanine Aminotransferase 34 U/L (16-63); Albumin Globulin Ratio 1.1; Albumin Level 3.9 g/dL (3.4-5.0); Alkaline Phosphatase 80 U/L (46-116); Anion Gap 14.3; Aspartate Amino Transferase 20 U/L (15-37); Bilirubin Total 0.5 mg/dL (0.2-1.0); Calcium 9.4 mg/dL (8.5-10.1); Carbon Dioxide 26.2 mmol/L (21.0-32.0); Chloride 97 mmol/L (98-107); Estimated GFR (African America >60 (>=60 mL/min/1.73m^2); Estimated GFR (Non-African Ame >60 (>=60 mL/min/1.73m^2); Globulin 3.7 g/dL; Glucose 105 mg/dL (74-106); Magnesium 1.8 mg/dL (1.8-2.4); Potassium 4.5 mmol/L (3.5-5.1); Sodium 133 mmol/L (136-145); Total Protein 7.6 g/dL (6.4-8.2)
--- OUTSIDE RECORDS SUMMARY | 2024-11-09 07:53 | XMS_ITS | CCD ---
Author Organization [facility] Care Team Providers Care Home Therapy Clinician Name Role Phone DR MARYBETH BEE Attending Unavailable ROHIT, DR RUEDA Consulting Unavailable ROHIT, DR RUEDA Primary Care Unavailable ROHIT, DR RUEDA Admitting Unavailable Marybeth Bee DO Primary Care Provider [phone] MARYBETH BEE Referring MARYBETH Taylor Primary Care Unavailable Marybeth Bee DO Primary Care Provider [phone] MARYBETH BEE Attending MARYBETH Taylor Referring Unavailable [...] (BMI) of 50.0 to 59.9 in adult [place] Take 1 capsule (37.5 mg total) by mouth every morning. 30 capsule 07/14/2024 Active Start: 07-08-2024 End: 07-09-2024 take 50-59.9 capsules by mouth once daily in the morning phentermine 37.5 MG capsule Indications: Class 3 severe obesity due to excess calories with serious comorbidity and body mass index (BMI) of 50.0 to 59.9 in adult [place] TAKE 1 CAPSULE BY MOUTH EVERY MORNING 30 capsule 07/09/2024 Active Start: 09-05-2023 take 50-59.9 tablets by mouth once daily before breakfast phentermine (ADIPEX-P) 37.5 mg tablet Indications: Class 3 severe obesity due to excess calories with serious comorbidity and body mass index (BMI) of 50.0 to 59.9 in adult [place] Take 1 tablet (37.5 mg total) by [...] (BMI) of 50.0 to 59.9 in adult ([facility] Take 1 tablet (25 mg total) by [...] (BMI) of 50.0 to 59.9 in adult ([facility] Inject 0.5 mL (0.5 mg total) under [...] (BMI) of 50.0 to 59.9 in adult ([facility] Inject 0.75 mL (2.4 mg total) under the skin every 7 days. 9 mL 1 12/28/2022 09/05/2023 Discontinued (Cost of medication) Start: 12-28-2022 semaglutide, w eight loss, (WEGOVY) 2.4 mg/0.75 mL pen injector Indications: Class 3 severe obesity due to excess calories with serious comorbidity and body mass index (BMI) of 50.0 to 59.9 in adult ([facility] Inject 0.75 mL (2.4 mg total) under [...] 07-04-2024 Albumin [Mass/Vol] 4.4 g/dL Normal 3.2-5.3 [facility] Comment on above: Performed By: #### Guy ALVAREZ 49825-1 #### [facility] ([id number]) [address], [address] [place] [address] ALP [Catalytic activity/Vol] 65 U/L Normal 39-130 [facility] Comment on above: Performed By: #### Guy ALVAREZ 52155-7 #### [facility] ([id number]) [address], [address] [place] [address] ALT [Catalytic activity/Vol] 26 U/L Normal 0-40 [facility] Comment on above: Performed By: #### Guy ALVAREZ, 68117-1 #### [facility] ([id number]) [address], [address] [place] [address] Anion gap [Moles/Vol] 8 mmol/L Normal 5-15 [facility] Comment on above: Performed By: #### Guy ALVAREZ 80428-6 #### [facility] ([id number]) [address], [address] [place] [address] AST [Catalytic activity/Vol] 18 U/L Normal 0-41 [facility] Comment on above: Performed By: #### Guy ALVAREZ 77802-7 #### [facility] ([id number]) [address], [address] [place] [address] Bilirubin [Mass/Vol] 0.6 mg/dL Normal 0.3-1.2 [facility] Comment on above: Performed By: #### Guy ALVAREZ, 65406-5 #### [facility] ([id number]) [address], [address] [place] [address] Calcium [Mass/Vol] 9.2 mg/dL Normal 8.5-10.5 [facility] Comment on above: Performed By: #### Guy ALVAREZ, 80647-1 #### [facility] ([id number]) [address] [address] [place] [address] Chloride [Moles/Vol] 100 mmol/L Normal 98-109 [facility] Comment on above: Performed By: #### Guy ALVAREZ, 83565-4 #### [facility] ([id number]) [address], [address] [place] [address] CO2 [Moles/Vol] 30 mmol/L Normal 22-32 [facility] Comment on above: Performed By: #### Gyu ALVAREZ, 74458-7 #### [facility] ([id number]) [address], [facility] [address] [place] [address] Creatinine [Mass/Vol] 0.86 mg/dL Normal 0.60-1.30 [facility] Comment on above: Result Comment: METH OD TRACEABLE TO IDMS STANDARD Performed By: #### Guy ALVAREZ, 59332-4 #### [facility] ([id number]) [address] [address] [place] [address] eGFR (CKD-EPI) NON-RACE DEPENDENT >90 Normal >59 [facility] Comment on above: Result Comment: Reported eGFR is based on the CKD-EPI 2020 equation that does not use a race coefficient. Performed By: #### Guy ALVAREZ, 71840-9 #### [facility] ([id number]) [address], [address] [place] [address] Glucose [Mass/Vol] 95 mg/dL Normal 65-99 [facility] Comment on above: Performed By: #### Guy ALVAREZ, 44433-0 #### [facility] ([id number]) [address], [address] [place] [address] Potassium [Moles/Vol] 4.3 mmol/L Normal 3.5-5.0 [facility] Comment on above: Performed By: #### Guy ALVAREZ, 07728-0 #### [facility] ([id number]) [address], [address] [place] [address] Protein [Mass/Vol] 7.4 g/dL Normal 6.0-8.0 [facility] Comment on above: Performed By: #### Guy ALVAREZ, 03260-2 #### [facility] ([id number]) [address], [address] [place] [address] Sodium [Moles/Vol] 138 mmol/L Normal 134-146 [facility] Comment on above: Performed By: #### Guy ALVAREZ, 97014-8 #### [facility] ([id number]) [address], [address] [place] [address] Urea nitrogen [Mass/Vol] 21 mg/dL Normal 5-23 [facility] Comment on above: Performed By: #### Guy ALVAREZ, 76723-9 #### [facility] ([id number]) [address], [address] [place] [address] Lipid 1996 panelon 5 Cholesterol [Mass/Vol] 182 mg/dL Normal 150-200 [facility] Comment on above: Performed By: #### Guy ALVAREZ, 11573-3 #### [facility] ([id number]) [address], [address] [place] [address] Cholesterol in HDL [Mass/Vol] 43 mg/dL Normal >39 [facility] Comment on above: Result Comment: HDL <40 mg/dL - High Risk HDL > or = 40mg/dL- Desirable HDL >60 mg/dL - Negative Risk Performed By: #### Guy ALVAREZ, 66182-9 #### [facility] ([id number]) [address], [address] [place] [address] Cholesterol in LDL [Mass/Vol] 119 mg/dL Normal <130 [facility] Comment on above: Result Comment: LDL <100 mg/dL - Desirable LDL >160 mg/dL - High Risk Performed By: #### Guy ALVAREZ, 95807-8 #### [facility] ([id number]) [address], [address] [place] [address] Cholesterol in VLDL [Mass/Vol] 20 mg/dL Normal 0-30 [facility] Comment on above: Performed By: #### Guy ALVAREZ, 79197-8 #### [facility] ([id number]) [address], [address] [place] [address] CHOLESTEROL:HDL 4.2 Normal 1.0-5.0 [facility] Comment on above: Performed By: #### Gyu ALVAREZ, 78268-3 #### [facility] ([id number]) [address] [address] [place] [address] Triglyceride [Mass/Vol] 102 mg/dL Normal 27-150 [facility] Comment on above: Performed By: #### Guy ALVAREZ, 25707-2 #### [facility] ([id number]) [address] [address] [place] [address] LIPID PROFILEon 06-27-2022 CHOL-HDL RATIO NORM SEE BELOW Normal [facility] Comment on above: Result Comment: 3.3 - 4.4 LOW RISK 4.4 - 7.1 AVERAGE RISK 7.1 - 11.0 MODERATE RISK >11.0 HIGH RISK Performed By: #### C MP, LIPID #### [facility] [address] [place] [address] Dr. Kimmie Palacios Cholesterol [Mass/Vol] 146 mg/dL Normal <=200 [facility] Comment on above: Performed By: #### C MP, LIPID #### [facility] [address] [address] [address] Kimmie Palacios Cholesterol in HDL [Mass/Vol] 45 mg/dL Normal 40-60 [facility] Comment on above: Performed By: #### C MP, LIPID #### [facility] [address] [place] [address] Dr. Kimmie Palacios Cholesterol in LDL [Mass/Vol] 79.8 mg/dL Normal [facility] Comment on above: Performed By: #### C MP, LIPID #### [facility] [address] [place] [address] Dr. Kimmie Palacios Cholesterol.total/C holesterol in HDL [Mass ratio] 3.2 {ratio} Normal [facility] Comment on above: Performed By: #### C MP, LIPID #### [facility] [address] [place] [address] Dr. Kimmie Palacios HDL NORMAL > or = 60 mg/dl - LOW CARDIOVASCULAR RISK <40 mg/dl - HIGH CARDIOVASCULAR RISK Normal [facility] Comment on above: Performed By: #### C MP, LIPID #### [facility] [address] [place] [address] Dr. Kimmie Palacios LDL CALC NORMAL SEE BELOW Normal [facility] Comment on above: Result Comment: <100 mg/dl OPTIMAL 100 - 129 mg/dl NEAR OR ABOVE OPTIMAL 130 - 159 mg/dl BORDERLINE HIGH 160 - 189 mg/dl HIGH >190 mg/dl VERY HIGH Performed By: #### C MP, LIPID #### [facility] [address] [place] [address] Dr. Kimmie Palacios Triglyceride [Mass/Vol] 106 mg/dL Normal <=150 [facility] Comment on above: Performed By: #### C MP, LIPID #### [facility] [address] [place] [address] Dr. Kimmie Palacios VLDL CALC 21.2 mg/dL Normal [facility] Comment on above: Performed By: #### C MP, LIPID #### [facility] [address] [place] [address] Dr. Kimmie Palacios PROF 14(COMP METB)on 023 Albumin [Mass/Vol] 3.2 g/dL Critically low 3.4-5.0 [facility] Comment on above: Performed By: #### C MP, LIPID #### [facility] [address] [place] [address] Dr. Kimmie Palacios Albumin/Globulin [Mass ratio] 0.6 {ratio} Normal [facility] Comment on above: Performed By: #### C MP, LIPID #### [facility] [address] [place] [address] Dr. Kimmie Palacios ALP [Catalytic activity/Vol] 79 U/L Normal 46-116 [facility] Comment on above: Performed By: #### C MP, LIPID #### [facility] [address] [place] [address] Dr. Kimmie Palacios ALT [Catalytic activity/Vol] 24 U/L Normal 16-63 [facility] Comment on above: Performed By: #### C MP, LIPID #### [facility] [address] [place] [address] Dr. Kimmie Palacios Anion gap [Moles/Vol] 12.8 mmol/L Normal [facility] Comment on above: Performed By: #### C MP, LIPID #### [facility] [address] [place] [address] Dr. Kimmie Palacios AST [Catalytic activity/Vol] 16 U/L Normal 15-37 [facility] Comment on above: Performed By: #### C MP, LIPID #### [facility] [address] [place] [address] Dr. Kimmie Palacios Bilirubin [Mass/Vol] 0.3 mg/dL Normal 0.2-1.0 [facility] Comment on above: Performed By: #### C MP, LIPID #### [facility] [address] [address] [address] Kimmie Palacios Calcium [Mass/Vol] 9.1 mg/dL Normal 8.5-10.1 [facility] Comment on above: Performed By: #### C MP, LIPID #### [facility] [address] [address] [address] Kimmie Palacios Chloride [Moles/Vol] 100 mmol/L Normal 98-107 [facility] Comment on above: Performed By: #### C MP, LIPID #### [facility] [address] [place] [address] Dr. Kimmie Palacios CO2 [Moles/Vol] 29.3 mmol/L Normal 21.0-32.0 [facility] Comment on above: Performed By: #### C MP, LIPID #### [facility] [address] [place] [address] Dr. Kimmie Palacios Creatinine [Mass/Vol] 0.97 mg/dL Normal 0.70-1.30 [facility] Comment on above: Performed By: #### C MP, LIPID #### [facility] [address] [place] [address] Dr. Kimmie Palacios EGFR-AF GHANAIAN >60 Normal >=[address] [facility] Comment on above: Performed By: #### C MP, LIPID #### [facility] [address] [place] [address] Dr. Kimmie Palacios EGFR-NON AF GHANAIAN >60 Normal >=60 [facility] Comment on above: Performed By: #### C MP, LIPID #### [facility] [address] [place] [address] Dr. Kimmie Palacios Globulin (S) [Mass/Vol] 5.0 g/dL Normal [facility] Comment on above: Performed By: #### C MP, LIPID #### [facility] [address] [place] [address] Dr. Kimmie Palacios Glucose [Mass/Vol] 102 mg/dL Normal 74-106 [facility] Comment on above: Performed By: #### C MP, LIPID #### [facility] [address] [address] [address] Kimmie Palacios Potassium [Moles/Vol] 5.1 mmol/L Normal 3.5-5.1 [facility] Comment on above: Performed By: #### C MP, LIPID #### [facility] [address] [place] [address] Dr. Kimmie Palacios Protein [Mass/Vol] 8.2 g/dL Normal 6.4-8.2 [facility] Comment on above: Performed By: #### C MP, LIPID #### [facility] [address] [address] [address] Kimmie Palacios Sodium [Moles/Vol] 137 mmol/L Normal 136-145 [facility] Comment on above: Performed By: #### C MP, LIPID #### [facility] [address] [place] [address] Dr. Kimmie Palacios Urea nitrogen [Mass/Vol] 20.0 mg/dL Critically high 7.0-18.0 [facility] Comment on above: Performed By: #### C MP, LIPID #### [facility] [address] [address] [address] Kimmie Palacios Urea nitrogen/Creatinine [Mass ratio] 20.6 mg/mg Normal [facility] Comment on above: Performed By: #### C MP, LIPID #### [facility] [address] [place] [address] Dr. Kimmie Palacios COMPREHENSIVE METABOLIC PANE Salbador 08-05-2021 Albumin [Mass/Vol] 4.1 g/dL Normal 3.6-5.1 [facility] Comment on above: Performed By: #### 7 600, 95560 #### [facility] [address], [address] [place] [phone] Family Practice Medical Doctor: Vicente Ahmadi MD Albumin/Globulin [Mass ratio] 1.3 {ratio} Normal 1.0-2.5 [facility] Comment on above: Performed By: #### 7 600, 98345 #### [facility] [address], [address] [place] [phone] Family Practice Medical Doctor: Vicente Ahmadi MD ALP [Catalytic activity/Vol] 67 U/L Normal 36-130 [facility] Comment on above: Performed By: #### 7 600, 12943 #### [facility] of [address] [place] [address] Family Practice Medical Doctor: Vicente Ahmadi MD ALT [Catalytic activity/Vol] 21 U/L Normal 9-46 [facility] Comment on above: Performed By: #### 7 600, 92230 #### [facility] [place] [address] Family Practice Medical Doctor: Vicente Ahmadi MD AST [Catalytic activity/Vol] 16 U/L Normal 10-40 [facility] Comment on above: Performed By: #### 7 600, 61334 #### [facility] [place] [address] Family Practice Medical Doctor: Vicente Ahmaid MD Bilirubin [Mass/Vol] 0.4 mg/dL Normal 0.2-1.2 [facility] Comment on above: Performed By: #### 7 600, 33887 #### [facility] [place] [address] Family Practice Medical Doctor: Vicente Ahmadi MD BUN/CREATININE RATIO NOT APPLICABLE Normal 6-22 [facility] Comment on above: Performed By: #### 7 600, 01738 #### [facility] [place] [address] Family Practice Medical Doctor: Vicente Ahmadi MD Calcium [Mass/Vol] 9.1 mg/dL Normal 8.6-10.3 [facility] Comment on above: Performed By: #### 7 600, 10943 #### [facility] [place] [address] Family Practice Medical Doctor: Vicente Ahmadi MD Chloride [Moles/Vol] 101 mmol/L Normal 98-110 [facility] Comment on above: Performed By: #### 7 600, 31559 #### [facility] [address] [place] [address] Family Practice Medical Doctor: Vicente Ahmadi MD CO2 [Moles/Vol] 27 mmol/L Normal 20-32 [facility] Comment on above: Performed By: #### 7 600, 49291 #### [facility] [place] [address] Family Practice Medical Doctor: Vicente Ahmadi MD Creatinine [Mass/Vol] 0.86 mg/dL Normal 0.60-1.35 [facility] Comment on above: Performed By: #### 7 600, 62350 #### [facility] [place] [address] Family Practice Medical Doctor: Vicente Ahmadi MD eGFR NON-AFR. GHANAIAN 110 mL/min/1.73m2 Normal > OR = 60 [facility] Comment on above: Performed By: #### 7 600, 02534 #### [facility] [place] [address] Family Practice Medical Doctor: Vicente Ahmadi MD GFR/1.73 sq M.predicted among blacks MDRD (S/P/Bld) [Vol rate/Area] 127 mL/min/{1.73_m2} Normal > OR = 60 [facility] Comment on above: Performed By: #### 7 600, 88047 #### [facility] [place] [address] Family Practice Medical Doctor: Vicente Ahmadi MD Globulin (S) [Mass/Vol] 3.1 g/dL Normal 1.9-3.7 [facility] Comment on above: Performed By: #### 7 600, 17825 #### [facility] [place] [address] Family Practice Medical Doctor: Vicente Ahmadi MD Glucose [Mass/Vol] 92 mg/dL Normal 65-99 [facility] Comment on above: Result Comment: Fasting reference interval Performed By: #### 7 600, 74128 #### [facility] [place] [address] Family Practice Medical Doctor: Vicente Ahmadi MD Potassium [Moles/Vol] 4.5 mmol/L Normal 3.5-5.3 [facility] Comment on above: Performed By: #### 7 600, 56448 #### [facility] of [address], [address] [place] [address] Family Practice Medical Doctor: Vicente Ahmadi MD Protein [Mass/Vol] 7.2 g/dL Normal 6.1-8.1 [facility] Comment on above: Performed By: #### 7 600, 58598 #### [facility] of [address], [address] [place] [address] Family Practice Medical Doctor: Vicente Ahmadi MD Sodium [Moles/Vol] 136 mmol/L Normal 135-146 [facility] Comment on above: Performed By: #### 7 600, 47282 #### [facility] [address] [place] [address] Family Practice Medical Doctor: Vicente Ahmadi MD Urea nitrogen [Mass/Vol] 21 mg/dL Normal 7-25 [facility] Comment on above: Performed By: #### 7 600, 68650 #### [facility] [place] [address] Family Practice Medical Doctor: Vicente Ahmadi MD LIPID PANEL, [facility] 03-0 Cholesterol [Mass/Vol] 156 mg/dL Normal <200 [facility] Comment on above: Order Comment: FASTI NG:YES FASTING: YES Performed By: #### 7 600, 95344 #### [facility] [place] [address] Family Practice Medical Doctor: Vicente Ahmadi MD Cholesterol in HDL [Mass/Vol] 42 mg/dL Normal > OR = 40 [facility] Comment on above: Order Comment: FASTI NG:YES FASTING: YES Performed By: #### 7 600, 74880 #### [facility] [place] [address] Family Practice Medical Doctor: Vicente Ahmadi MD Cholesterol in LDL [Mass/Vol] [...] LDL-C. Marcus PHILIPPE et al. ZOEY. 2013;310(19): 9890-6820 (http://education.[employer].Airpush/faq/LVA810) Performed By: #### 7 600, 35541 #### [facility] [address], [address] [place] [address] Family Practice Medical Doctor: Vicente Ahmadi MD Cholesterol.total/C holesterol in HDL [Mass ratio] 3.7 {ratio} Normal <5.0 [facility] Comment on above: Order Comment: FASTI NG:YES FASTING: YES Performed By: #### 7 600, 22696 #### [facility] [address], [address] [place] [address] Family Practice Medical Doctor: Vicente Ahmadi MD NON HDL CHOLESTEROL 114 mg/dL (calc) Normal <130 [facility] Comment on above: Order Comment: FASTI NG:YES FASTING: YES Result Comment: For patients with diabetes plus 1 major ASCVD risk factor, treating to a non-HDL-C goal of <100 mg/dL (LDL-C of <70 mg/dL) is considered a therapeutic option. Performed By: #### 7 600, 22141 #### [facility] [address], [address] [place] [address] Family Practice Medical Doctor: Vicente Ahmadi MD Triglyceride [Mass/Vol] 108 mg/dL Normal <150 [facility] Comment on above: Order Comment: FASTI NG:YES FASTING: YES Performed By: #### 7 600, 00422 #### [facility] [address] [place] [address] Family Practice Medical Doctor: Vicente Ahmadi MD Vital Signs Date Time Vital Sign Value Performing Clinician Facility 10-29-2024 12:36-0400 Body height 193 cm Marybeth Bee DO Work Phone: [facility] 10-29-2024 12:36-0400 Body mass index (BMI) [Ratio] 57.36 kg/m2 Marybeth Garcias DO Work Phone: [facility] 10-29-2024 12:36-0400 Body temperature 97.5 [degF] Marybeth Garcias DO Work Phone: [facility] 10-29-2024 12:36-0400 Body weight 213.64 kg Marybeth Garcias DO Work Phone: [facility] 10-29-2024 12:36-0400 Diastolic blood pressure 72 mm[Hg] Marybeth Garcias DO Work Phone: [facility] 10-29-2024 12:36-0400 Heart rate 92 /min Marybeth Garcias DO Work Phone: [facility] 10-29-2024 12:36-0400 Respiratory rate 20 /min Marybeth Garcias DO Work Phone: [facility] 10-29-2024 12:36-0400 SaO2% (BldA) [Mass fraction] 100 % Marybeth Garcias DO Work Phone: [facility] 10-29-2024 12:36-0400 Systolic blood pressure 118 mm[Hg] Marybeth Bee DO Work Phone: [facility] 07-04-2024 07:55-0500 Body height 193 cm Marybeth Garcias DO Work Phone: [facility] 07-04-2024 07:55-0500 Body mass index (BMI) [Ratio] 57.87 kg/m2 Marybeth Garcias DO Work Phone: [facility] 07-04-2024 07:55-0500 Body temperature 97.39 [degF] Marybeth Garcias DO Work Phone: [facility] 07-04-2024 07:55-0500 Body weight 215.64 kg Marybeth Garcias DO Work Phone: [facility] 07-04-2024 07:55-0500 Diastolic blood pressure 72 mm[Hg] [facility] 07-04-2024 07:55-0500 Heart rate 97 /min [facility] 07-04-2024 07:55-0500 SaO2% (BldA) [Mass fraction] 98 % Marybeth Bee DO Work Phone: [facility] [employer] 07-04-2024 07:55-0500 Systolic blood pressure 120 mm[Hg] Marybeth Bee DO Work Phone: [facility] 09-05-2023 16:57-0400 Body mass index (BMI) [Ratio] 56.6 kg/m2 Marybeth Bee DO Work Phone: [facility] [employer] [facility] 09-05-2023 16:57-0400 Body weight 210.92 kg Marybeth Bee DO Work Phone: [facility] 09-05-2023 16:57-0400 Diastolic blood pressure 78 mm[Hg] Marybeth Bee DO Work Phone: [facility] [employer] [facility] 09-05-2023 16:57-0400 Systolic blood pressure 124 mm[Hg] Marybeth Bee DO Work Phone: [facility] Encounters Encounter Date Encounter Type Care Provider Facility Start: 10-29-2024 End: 10-29-2024 Office outpatient visit 25 minutes Marybeth Bee DO Work Phone: [facility] - [facility] Comment on above: Degenerative lumbar spinal stenosis (Primary Dx); Dermatitis; Class 3 severe obesity due to excess calories with serious comorbidity and body mass index (BMI) of 50.0 to 59.9 in adult ([facility]) Start: 10-29-2024 End: 10-29-2024 ambulatory [facility] Start: 07-09-2024 End: 07-09-2024 Refill Marybeth L Yuhas DO [facility] Phone: [facility] Comment on above: Class 3 severe obesi ty due to excess calories with serious comorbidity and body mass index (BMI) of 50.0 to 59.9 in adult ([facility] Start: 07-07-2024 End: 07-07-2024 Refill Marybeth Bee DO Work Phone: [facility] Comment on above: Essential hypertensi on; Anxiety; Gastroesophageal reflux disease, unspecified whether esophagitis present; Degenerative lumbar spinal stenosis Start: 07-04-2024 End: 07-04-2024 ambulatory [facility] Start: 07-04-2024 End: 07-04-2024 Office outpatient visit 25 minutes Marybeth Bee DO Work Phone: [facility] Internal Medicine - Family Medicine Comment on above: Essential hypertensi on (Primary Dx); Class 3 severe obesity due to excess calories with serious comorbidity and body mass index (BMI) of 50.0 to 59.9 in adult ([facility] JILLIAN (obstructive sleep apnea); Hyperlipidemia, unspecified hyperlipidemia type; Degenerative lumbar spinal stenosis Start: 07-04-2024 End: 07-04-2024 ambulatory [facility] Start: 06-06-2024 End: 06-06-2024 Refill Marybeth Bee DO Work Phone: [facility] Internal Medicine - Family Medicine Comment on above: Essential hypertensi on; Anxiety; Gastroesophageal reflux disease, unspecified whether esophagitis present; Degenerative lumbar spinal stenosis Start: 05-15-2024 End: 05-16-2024 Refill Marybeth Bee DO Work Phone: [facility] Comment on above: Degenerative lumbar spinal stenosis Start: 04-14-2024 End: 04-14-2024 Refill Marybeth Garcias DO Work Phone: [facility] Comment on above: Degenerative lumbar spinal stenosis Start: 03-04-2024 End: 03-04-2024 Refill Marybeth Garcias DO Work Phone: [facility] Internal Medicine Family Medicine Comment on above: Degenerative lumbar spinal stenosis; Essential hypertension; Anxiety; Gastroesophageal reflux disease, unspecified whether esophagitis present Start: 02-01-2024 End: 02-05-2024 Refill Marybeth Garcias DO Work Phone: [facility] Internal Medicine - Family Medicine Comment on above: Anxiety; Gastroesophageal reflux disease, unspecified whether esophagitis present; Essential hypertension Degenerative lumbar spinal stenosis Start: 01-10-2024 End: 01-10-2024 Refill Darby Ham CNA [facility] Internal Medicine - Family Medicine Comment on above: Degenerative lumbar spinal stenosis Start: 01-07-2024 End: 01-07-2024 Refill Lizeth Turner CMA [facility] Internal Medicine - Family Medicine Comment on above: Degenerative lumbar spinal stenosis Start: 12-05-2023 End: 12-07-2023 Refill Marybeth Garcias DO Work Phone: [facility] Internal Medicine Family Medicine Comment on above: Degenerative lumbar spinal stenosis Start: 10-29-2023 End: 10-29-2023 Refill Marybeth Garcias DO Work Phone: [facility] Internal Medicine Family Medicine Comment on above: Degenerative lumbar spinal stenosis Start: 10-19-2023 End: 10-19-2023 Refill Marybeth Garcias DO Work Phone: [facility] Internal Medicine Family Medicine Comment on above: Gastroesophageal ref lux disease, unspecified whether esophagitis present; Essential hypertension Start: 10-16-2023 End: 10-24-2023 Telephone encounter Marybeth Garcias DO Work Phone: [facility] Internal Medicine - Family Medicine Start: 09-05-2023 End: 09-05-2023 Office outpatient visit 15 minutes Marybeth Garcias DO Work Phone: [facility] Internal Medicine Family Medicine Comment on above: Class 3 severe obesi ty due to excess calories with serious comorbidity and body mass index (BMI) of 50.0 to 59.9 in adult ([facility]) (Primary Dx); Essential hypertension; Degenerative lumbar spinal [...] Adult BMI Screening Adult BMI Screen ing [facility] Start: 07-04-2025 Depression Screening Depression Scre ening [facility] Start: 07-04-2025 Tobacco Screening Tobacco Screening [facility] Start: 02-02-2025 Influenza vaccination Influenza Vacc ine [facility] Start: 09-04-2024 Adult BMI Screening Adult BMI Screen ing [facility] Start: 09-04-2024 Tobacco Screening Tobacco Screening [facility] Start: 08-05-2024 End: 08-05-2024 Telemedicine consultation with patient 08/05/2024 3:45 PM EST Telemedicine [facility] - [facility] [address] [place] [address] Marybeth Bee DO [address] [place] [address] [facility] Start: 07-04-2024 End: 07-04-2024 Patient encounter procedure 07/04/2024 8:00 AM EST Office Visit [facility] [address] [place] [address] Marybeth Bee, [address] [place] [address] [facility] - [facility] Medicine Start: 02-03-2024 COVID-19 Vaccine ( season) COVID-19 Vaccine ( season) [facility] Start: 02-03-2024 COVID-19 Vaccine ( season) COVID-19 Vaccine ( season) [facility] Start: 02-03-2024 Influenza vaccination Influenza Vacc ine [facility] Start: 01-23-2024 Adult BMI Screening Adult BMI Screen ing [facility] Start: 01-23-2024 Depression Screening Depression Scre ening [facility] Start: 01-23-2024 Tobacco Screening Tobacco Screening [facility] Start: 02-02-2023 COVID-19 Vaccine ( season) COVID-19 Vaccine ( season) [facility] Start: 02-02-2023 Influenza vaccination Influenza Vacc ine [facility] Start: 2001 DTaP,Tdap and Td Vaccines (1 - Tdap) DTaP,Tdap and Td Vaccines (1 - Tdap) [facility] Start: 2000 Adult BMI Follow Up Plan Adult BMI Follow Up Plan [facility] End: 07-04-2025 Comprehensive metabolic 2000 panel - Serum or Plasma Comprehensive metabolic panel Lab Routine Hyperlipidemia, unspecified hyperlipidemia type 1 Occurrences starting 07/04/2024 until 07/04/[address] [facility] Work Phone: Comment on above: 1 Occurrences starti ng 07/04/2024 until 07/04/2025 End: 07-04-2025 Lipid 1996 panel - Serum or Plasma Lipid profile Lab Routine Hyperlipidemia, unspecified hyperlipidemia type 1 Occurrences starting 07/04/2024 until 07/04/2025 [facility] Comment on above: 1 Occurrences starti ng 07/04/2024 until 07/04/2025 Payers Date Payer Category Payer Commercial Managed C are - PPO [employer] [id number] 2021 Unknown [employer] M [facility], DEMOLISHED 2001MED [id number] 2021-Present [phone] [address] [place] [address] [id number] 1982 Unknown [id number] 1982 Unknown [id number] 1982 Unknown [id number] 1982 Unknown [id number] 1959 Unknown [id number] Social History Date Type Detail Facility Start: 07-05-2022 [facility] Start: 07-05-2022 Tobacco use and exposure Smoke less tobacco non-user [facility] Start: 09-05-2023 End: 10-29-2024 Alcoholic beverage intake Ex-drinker (finding) [facility] Start: 06-26-2022 End: 10-29-2024 History of Social function [facility] Start: 06-26-2022 End: 10-29-2024 Social connection and isolation panel [facility] Do you belong to any clubs or organizations such as anglican groups, unions, fraternal or athletic groups, or school groups? No [facility] Are you now , , , , never or living with a partner? [facility] How often to you hav e a drink containing alcohol? Never [facility] How many standard dr inks containing alcohol do you have on a typical day? Patient does not drink [facility] How hard is it for y ou to pay for the very basics like food, housing, medical care, and heating Somewhat hard [facility] Do you feel stress - tense, restless, nervous, or anxious, or unable to sleep at night because your mind is troubled all the time - these days [OSQ] Only a little [facility] Start: 06-26-2022 Education 15 [facility] Start: 1980 Sex assigned at Not on file P [facility] Start: 01-07-2015 Sex Male (finding) [facility] How hard is it for y ou to pay for the very basics like food, housing, medical care, and heating Not very hard [facility] Clinical Notes 07-16-2023 to 10-29-2024 Marybeth Bee, [...] (BMI) of 50.0 to 59.9 in adult ([facility]) -currently on phentermine and topiramate -advised patient [...] Testing No results found. Marybeth Bee DO., [facility] Office: [phone] [facility] History of Presen t illness Narrative [...] (BMI) of 50.0 to 59.9 in adult ([facility]) -patient is aware he needs to have [...] Testing No results found. Marybeth Bee DO., [facility] Office: [phone] documented in this encounter [facility] 01-10-2024 Miscellaneous Notes Formattin g of this note might be different from the original. Junior called to request Meloxicam be sent to [facility] at this time, previously sent to [facility]. documented in this encounter [facility] 01-10-2024 Telephone encount er Note Junior called to request Meloxicam be sent to [facility] at this time, previously sent to [facility]. [facility] 10-16-2023 Miscellaneous Notes Formattin g of this note might be different from the original. ----- Message from Marybeth Bee DO sent at 09/05/2023 5:10 PM EDT ----- Weight recheck - Phentermine Lm on VM Lm on VM Sending letter documented in this encounter [facility] 10-16-2023 Telephone encount er Note ----- Message from Marybeth Bee DO sent at 09/05/2023 5:10 PM EDT ----- Weight recheck - Phentermine [facility] 10-16-2023 Telephone encount er Note Lm on VM [facility] 10-16-2023 Telephone encount er Note Lm on VM [facility] 10-16-2023 Telephone encount er Note Sending letter [facility] [employer] [facility] 09-05-2023 History of Presen t illness Narrative IM PROGRESS NOTE Patient - Junior Collins Age - 42 y.o. [facility] 1980 [id number] ASSESSMENT & PLAN Video Visit via Real-time Synchronous Audiovisual Provider Location: [facility] INTERNAL MEDICINE - FAMILY MEDICINE [address] [facility] [address] Patient Location: Car Video Visit Consent Statement: [...] that there are some limitations compared to [id number] evaluations. The patient consented to the presence of additional virtual and/or in-person participants. We elected to proceed. 1. Class 3 severe obesity due to excess calories with serious comorbidity and body mass index (BMI) of 50.0 to 59.9 in adult ([facility]) -we discussed his goals of weight loss. His initial goals to get less than 400 lb. -he previously has received instruction on diet. -at the current time he is unable to participate regularly in exercise because of his orthopedic limitations -previously on Wegovy with prescription, and tolerated it well. We did discuss using a compounded formulation of semaglutide through [facility] in [place]. Cost estimate would be anywhere 100-200 dollars a month. He will investigate this, and look at his finances. -more affordable would be phentermine 37.5 mg daily. We reviewed the potential side effects both with anxiety, hypertension palpitations, dry mouth and sleeplessness. He is willing to try this as a start. -Rx for phentermine sent to [facility] 2. 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 Marybeth Bee DO., [facility] Physicians Office: [phone] documented in this encounter [facility] 07-16-2023 Miscellaneous Notes Formattin g of this note might be different from the original. ----- Message from Marybeth Bee DO sent at 12/28/2022 3:21 PM EDT ----- Weight recheck/lab/BP Called twice sending letter documented in this encounter [facility] 07-16-2023 Telephone encount er Note ----- Message from Marybeth Bee DO sent at 12/28/2022 3:21 PM EDT ----- Weight recheck/lab/BP [facility] 07-16-2023 Telephone encount er Note Called twice sending letter [facility] Evaluation note Diagnosis Degenerative lumbar spinal stenosis Spinal stenosis of lumbar region [facility] Diagnosis Essential hypertension Unspecified essential hypertension Anxiety Anxiety state, unspecified Gastroesophageal reflux disease, unspecified whether esophagitis present Degenerative lumbar spinal stenosis Spinal stenosis of lumbar region [facility] Diagnosis Essential hypertension- Primary Unspecified essential hypertension Class 3 severe obesity due to excess calories with serious comorbidity and body mass index (BMI) of 50.0 to 59.9 in adult ([facility] JILLIAN (obstructive sleep apnea) Obstructive sleep apnea [...] (BMI) of 50.0 to 59.9 in adult ([facility]) [facility] (BMI) of 50.0 to 59.9 in adult ([facility])- Primary Essential hypertension Unspecified essential hypertension Degenerative [...] (BMI) of 50.0 to 59.9 in adult ([facility]) documented in this encounter [facility] [...] (BMI) of 50.0 to 59.9 in adult ([facility]) Marybeth Bee, DO [address] [place] [address] Referral ID Status Reason Start Date Expiration Date V isits Requested Visits Authorized [id number] Pending Review 1 1 Additional Source Comments (unrecognized sect ion and content) No Status Records FoundNo Status Records FoundNo Status Records FoundNo Status Records Found INFORMATION SOURCE (unrecogn ized section and content) DATE CREATED AUTHOR 08/05/2021 [facility] DATE CREATED AUTHOR AUTHOR'S ORGANIZ ATION 09/07/2022 [facility] DATE CREATED AUTHOR AUTHOR'S ORGANIZ ATION 07/07/2024 [facility] DATE CREATED AUTHOR AUTHOR'S ORGANIZ ATION 11/01/2024 [...] Care Teams (unrecognized sec tion and content) Home Therapy Clinician Relationship Specialty Start Date End Date Marybeth Bee DO [address] [place] [address] PCP - General Internal Medicine 06/13/22 Home Therapy Clinician Relationship Specialty Start Date End Date Marybeth Bee DO [address] [place] [address] PCP - General Internal Medicine 06/13/22 Home Therapy Clinician Relationship Specialty Start Date End Date Marybeth Bee DO [address] [place] [address] PCP - General Internal Medicine 06/13/22 Home Therapy Clinician Relationship Specialty Start Date End Date Marybeth Bee DO [address] [place] [address] PCP - General Internal Medicine 06/13/22 Home Therapy Clinician Relationship Specialty Start Date End Date Marybeth Bee DO [address] [place] [address] PCP - General Internal Medicine 06/13/22 Home Therapy Clinician Relationship Specialty Start Date End Date Marybeth Bee DO [address] [place] [address] PCP - General Internal Medicine 06/13/22 Home Therapy Clinician Relationship Specialty Start Date End Date Marybeth Bee DO [address] [place] [address] PCP - General Internal Medicine 06/13/22 Home Therapy Clinician Relationship Specialty Start Date End Date Marybeth Bee DO [address] [place] [address] PCP - General Internal Medicine 06/13/22 Home Therapy Clinician Relationship Specialty Start Date End Date Marybeth Bee DO [address] [place] [address] PCP - General Internal Medicine 06/13/22 Home Therapy Clinician Relationship Specialty Start Date End Date Marybeth Bee DO [address] [place] [address] PCP - General Internal Medicine 06/13/22 Home Therapy Clinician Relationship Specialty Start Date End Date Marybeth Bee DO [address] [place] [address] PCP - General Internal Medicine 06/13/22 Home Therapy Clinician Relationship Specialty Start Date End Date Marybeth Bee DO [address] [place] [address] PCP - General Internal Medicine 06/13/22 Home Therapy Clinician Relationship Specialty Start Date End Date Marybeth Bee DO [address] [place] [address] PCP - General Internal Medicine 06/13/22 FOR [...] PRIMARY CLINICAL RECORDS. [facility]. provides no warranty or guarantee of the accuracy or completeness of information in this document.
--- OUTSIDE RECORDS SUMMARY | 2024-11-09 07:54 | XMS_ITS | Encounter Summary ---
Author Organization [employer] s tem Address [id number] [address] [place] [address] Care Team Providers Care Instructor Psychiatric Aide Name Role Phone Rivera Simon Primary Care Provider [phone] Encounter Details Date Type Department Care Team (Latest Contact Info) Description 10/28/2024 Travel Social History Tobacco Use Types Packs/Day Years [...] week 06/26/2022 How often do you attend mosque or religion serv ices? Never 06/26/2022 Do you belong to any clubs o r organizations such as mosque groups, unions, fraternal or athletic groups, or [...] Answer Date Recorded Total Score 0 10/29/2024 [facility] - Occupational [...] Recorded Do you need help finding a [facility] career center and/or a training program? No [...] purpose and direction in my life. Socorro sauer Agree nor Disagree 06/26/2022 Education Answer Date [...] on file documented as of this encounter Plan of Treatment Not on file documented as of this encounter Visit Diagnoses Not on filedocumented in this encounter Additional Health Concerns Assessment Noted Time PHQ-9 Depression Total Score: 0 07/04/19 25 7:55 AM EST documented as of this encounter Care Teams Instructor Psychiatric Aide Relationship Specialty Start Date End Date Rivera Simon DO [address] [place] [address] PCP - General Internal Medicine 06/13/22 documented as of this encounter
--- OUTSIDE RECORDS SUMMARY | 2024-11-09 07:54 | XMS_ITS | Encounter Summary ---
Author Organization [employer] Sys [employer] Address [id number] [address] [place] [address] Care Team Providers Care Care Navigator Name Role Phone Rivera Simon DO Primary Care Provider [phone] Encounter Details Date Type Department Care Team (Late st Contact Info) Description 06/16/2024 Orders Only [facility] Internal Medicine - Family Medicine [address] [place] [id number] Rivera Simon DO [address] [place] [address] Class 3 severe obesity due to excess calories with serious comorbidity and body mass index (BMI) of 50.0 to 59.9 in adult ([facility]) Social History Tobacco Use Types [...] week 06/26/2022 How often do you attend rastafari or shinto serv ices? Never 06/26/2022 Do you belong to any clubs o r organizations such as rastafari groups, unions, fraternal or athletic groups, or [...] like food, housing, medical care, and heating? Somewhat hard 09/04/2023 PHQ-2 Answer Date Recorded Total Score 0 01/22/2023 [facility] Occup[facility] - Occupational Stress [...] medical appointments or from getting medications? No 07/2023 In the past 12 months, has l ack of transportation kept you from meetings, work, or from getting things needed for daily living? No 09/04/2023 Housing Instability Answer Date Recorde d Are you worried or concerned that in the next two months you may not have stable housing that you own, rent or stay in as a part of a household? No 09/04/2023 Childcare Answer Date Recorded Do problems getting child ca re make it difficult for you to work or study? No 06/26/2022 Employment Answer Date Recorded Do you need help finding a [place] [employer] career center and/or a training program? No 06/26/2022 Hunger Screening Answer Date Recorded Within the past 12 months we worried whether our food would run out before we got money to buy more. Sometimes True 024 Within the past 12 months th e food we bought just didn't last and we didn't have money to get more. Patient Declined 07/2023 Purpose - Life Answer Date Recorded I [...] as of this encounter Visit Diagnoses Diagnosis Class 3 severe obesity due to excess calories with serious comorbidity and body mass index (BMI) of 50.0 to 59.9 in adult ([facility]) documented in this encounter Additional Health Concerns Assessment Noted Time PHQ-9 Depression Total Score: 0 01/23/20 23 3:26 PM EDT documented as of this encounter Care Teams Care Navigator Relationship Specialty Start Date End Date Rivera Simon DO [address] [place] [id number] PCP - General Internal Medicine 06/13/22 documented as of this encounter
--- OUTSIDE RECORDS SUMMARY | 2024-11-09 07:54 | XMS_ITS | Encounter Summary ---
Author Organization [facility] [employer] s tem Address [id number] [address] [place] [address] Care Team Providers Care Dietetic Tech Name Role Phone Rivera Simon DO Primary Care Provider [phone] Reason for Visit * Reason Onset Date Comments Labs Only 06/13/2022 Encounter Details Date Type Department Care Team (Late st Contact Info) Description 06/13/2022 [facility] [address] [place] [address] Rivera Simon DO [address] [place] [address] Labs Only Social History Tobacco Use Types Packs/Day Years Used Date Smoking Tobacco: Never Assessed Childcare Answer Date Recorded Childcare Unknown 11/13/2018 Employment Answer Date Recorded Employment Unknown 11/13/2018 Sex and Gender Information Value Date Recorded Sex Assigned at Not on file Legal Sex Male 11:34 AM EDT Gender Identity Not on file Sexual Orientation Not on file documented as of this encounter Miscellaneous Notes * Telephone Encounter - Rosa So - 06/13/2022 10:48 AM EST Patient is coming in for a bp recheck and would like lab orders sent to [facility] to have done documented in this encounter Plan of Treatment Not on file documented as of this encounter Visit Diagnoses Not on filedocumented in this encounter Care Teams Dietetic Tech Relationship Specialty Start Date End Date Rivera Simon DO [address] [place] [address] PCP - General Internal Medicine 06/13/22 documented as of this encounter
--- OUTSIDE RECORDS SUMMARY | 2024-11-09 07:54 | XMS_ITS | Encounter Summary ---
Author Organization [employer] Sys tem Address [facility] [id number] [address] [place] [address] Care Team Providers Care Bellman Name Role Phone Rivera Simon DO Primary Care Provider [phone] Encounter Details Date Type Department Care Team (Late st Contact Info) Description 06/13/2024 Orders Only [facility] Internal [facility] - Family Medicine [address] [place] [phone] Rivera Simon DO [address] [place] [address] Class 3 severe obesity due to excess calories with serious comorbidity and body mass index (BMI) of 50.0 to 59.9 in adult ([facility]) (Primary Dx) Social History Tobacco Use Types Packs/Day Years [...] week 06/26/2022 How often do you attend scientologist or orthodoxy serv ices? Never 06/26/2022 Do you belong to any clubs o r organizations such as scientologist groups, unions, fraternal or athletic groups, or [...] Answer Date Recorded Total Score 0 01/22/2023 [facility] of Occupat ional Health - Occupational Stress [...] Recorded Do you need help finding a [facility] career center and/or a training program? No [...] (BMI) of 50.0 to 59.9 in adult ([facility])- Primary documented in this encounter Additional Health Concerns Assessment Noted Time PHQ-9 Depression Total Score: 0 01/23/20 23 3:26 PM EDT documented as of this encounter Care Teams Bellman Relationship Specialty Start Date End Date Rivera Simon DO [address] [id number] PCP - General Internal Medicine 06/13/22 documented as of this encounter
--- OUTSIDE RECORDS SUMMARY | 2024-11-09 07:54 | XMS_ITS | Encounter Summary ---
Author Organization [employer] Sys tem Address [facility] [id number] [address] [place] [address] Care Team Providers Care Java Front End Web Developer Name Role Phone Rivera Simon DO Primary Care Provider [phone] Reason for Visit * Reason Comments Med Refill Encounter Details Date Type Department Care Team (Late st Contact Info) Description 10/05/2023 Refill [facility] - Family Medicine [address] [place] [phone] Rivera Simon DO [address] [place] [address] Class 3 severe obesity due to excess calories with serious comorbidity and body mass index (BMI) of 50.0 to 59.9 in adult ([facility]) Social History Tobacco Use Types Packs/Day Years [...] week 06/26/2022 How often do you attend baptist or sabianist serv ices? Never 06/26/2022 Do you belong to any clubs o r organizations such as baptist groups, unions, fraternal or athletic groups, or [...] Answer Date Recorded Total Score 0 01/22/2023 [facility] of Occupat ional Health - [...] Recorded Do you need help finding a [facility] career center and/or a training program? [...] a purpose and direction in my life. Neith er Agree nor Disagree 06/26/2022 Education Answer [...] encounter Miscellaneous Notes * Telephone Encounter - Evelin Campa CMA - 10/05/2023 5:55 AM EDT Left message for patient to call back and schedule . * Telephone Encounter - Rivera Simon DO - 10/05/2023 5:55 AM EDT Needs controlled substance recheck documented in this encounter Plan of Treatment [...] documented as of this encounter Care Teams Java Front End Web Developer Relationship Specialty Start Date End Date Rivera Simon DO [address] [place] [address] PCP - General Internal Medicine 06/13/22 documented as of this encounter
--- OUTSIDE RECORDS SUMMARY | 2024-11-09 07:54 | XMS_ITS | Encounter Summary ---
Author Organization [employer] Sys tem Address [facility] [place][id number] [address] [place] [address] Care Team Providers Care Paramedic Instructor Name Role Phone Rivera Simon Primary Care Provider [phone] Encounter Details Date Type Department Care Team (Late st Contact Info) Description 07/14/2022 Orders Only [facility] - Family Medicine [address] [place] [phone] External, Scanning Provider Social History Tobacco Use Types Packs/Day Years [...] week 06/26/2022 How often do you attend christianity or mormon serv ices? Never 06/26/2022 Do you belong to any clubs o r organizations such as christianity groups, unions, fraternal or athletic groups, or [...] housing, medical care, and heating? Somewhat hard 06/26/2022 PHQ-2 Answer Date Recorded Total Score 7 06/26/2022 [facility] of Occupat ional Health - [...] medical appointments or from getting medications? No 06/05 In the past 12 months, has l ack of transportation kept you from meetings, work, or from getting things needed for daily living? No 06/26/2022 Childcare Answer Date Recorded Do problems getting child ca re make it difficult for you to work or study? No 06/26/2022 Employment Answer Date Recorded Do you need help finding a [facility] career center and/or a training program? No 06/26/2022 Purpose - Life Answer Date Recorded I [...] on file Sexual Orientation Not on file COVID-19 Exposure Response Date Recorded In the last month, have you been in contact with someone who was confirmed or suspected to have Coronavirus / COVID-19? No / Unsure 07/05/2022 4:30 PM EST documented as of this encounter Plan of Treatment Not on file documented as of this encounter Procedures Procedure Name Priority Date/Time Associated Diagnosis Comments MULTIPLE LABS Routine 07/14/2022 documented in this encounter Results * Multiple labs (07/14/2022) us Scanning Provider External [facility] Final Result MANUALLY TRANSCRIBED RESULTS documented in this encounter Visit Diagnoses Not on filedocumented in this encounter Additional Health Concerns Assessment Noted Time PHQ-9 Depression Total Score: 7 06/26/19 6:30 PM EST documented as of this encounter Care Teams Paramedic Instructor Relationship Specialty Start Date End Date Rivera Simon DO [address] [place] [address] PCP - General Internal Medicine 06/13/22 documented as of this encounter
--- OUTSIDE RECORDS SUMMARY | 2024-11-09 07:54 | XMS_ITS | Encounter Summary ---
Author Organization [employer] Address [facility] [place]-[id number] [address] [place] [address] Care Team Providers Care Sheet Combining Operator Name Role Phone Rivera Simon DO Primary Care Provider [phone] Encounter Details Date Type Department Care Team (Late st Contact Info) Description 07/24/2022 Orders Only [facility] - Family Medicine [address] [place] [phone] Rivera Simon DO [address] [place] [address] IFG (impaired fasting glucose) (Primary Dx); Class 3 severe obesity due to excess calories with serious comorbidity and body mass index (BMI) of 50.0 to 59.9 in adult ([facility]) Social History Tobacco Use Types [...] week 06/26/2022 How often do you attend tenriism or temple serv ices? Never 06/26/2022 Do you belong to any clubs o r organizations such as tenriism groups, unions, fraternal or athletic groups, or [...] Answer Date Recorded Total Score 7 06/26/2022 [facility] of Occupat ional Health - Occupational Stress [...] Recorded Do you need help finding a [place] [facility]cal career center and/or a training program? No [...] as of this encounter Visit Diagnoses Diagnosis IFG (impaired fasting glucose)- Primary Class 3 severe obesity due to excess calories with serious comorbidity and body mass index (BMI) of 50.0 to 59.9 in adult (CMS-HCC) documented in this encounter Additional Health Concerns Assessment Noted Time PHQ-9 Depression Total Score: 7 06/26/19 6:30 PM EST documented as of this encounter Care Teams Sheet Combining Operator Relationship Specialty Start Date End Date Rivera Simon DO [address] [place] [address] PCP - General Internal Medicine 06/13/22 documented as of this encounter
--- OUTSIDE RECORDS SUMMARY | 2024-11-09 07:54 | XMS_ITS | Encounter Summary ---
Author Organization [employer] Sys tem Address [facility] [place][id number] [address] [place] [address] Care Team Providers Care Teletype Adjuster Name Role Phone Rivera Simon Primary Care Provider [phone] Encounter Details Date Type Department Care Team (Late st Contact Info) Description 12/21/2022 Refill [facility] - Family Medicine [address] [place] [phone] Pat Cottrell CMA Anxiety; Class 3 severe obesity due to excess calories with serious comorbidity and body mass index (BMI) of 50.0 to 59.9 in adult ([facility]) Social History Tobacco Use Types Packs/Day Years [...] week 06/26/2022 How often do you attend hinduism or gnosticist serv ices? Never 06/26/2022 Do you belong to any clubs o r organizations such as hinduism groups, unions, fraternal or athletic groups, or [...] Answer Date Recorded Total Score 7 06/26/2022 [facility] of Occupat ional Health - Occupational Stress [...] encounter Miscellaneous Notes * Telephone Encounter - Pat Cottrell CMA - 12/21/2022 3:33 PM EDT Pt needs refills, cheaper through [facility]. * Telephone Encounter - Evelin Campa CMA - 12/21/2022 3:33 PM EDT LM to CB documented in this encounter Plan of Treatment Not on file documented as of this encounter Visit Diagnoses Diagnosis Anxiety Anxiety state, unspecified Class 3 severe obesity due to excess calories with serious comorbidity and body mass index (BMI) of 50.0 to 59.9 in adult ([facility]-HCC) documented in this encounter Additional Health Concerns Assessment Noted Time PHQ-9 Depression Total Score: 7 06/26/19 6:30 PM EST documented as of this encounter Care Teams Teletype Adjuster Relationship Specialty Start Date End Date Rivera Simon DO [address] [place] [address] PCP - General Internal Medicine 06/13/22 documented as of this encounter
--- OUTSIDE RECORDS SUMMARY | 2024-11-09 07:54 | XMS_ITS | Encounter Summary ---
Author Organization [employer] Address [facility] [place][id number] [address] [place] [address] Care Team Providers Care Document Coordinator Name Role Phone Rivera Simon DO Primary Care Provider Encounter Details Date Type Department Care Team (Late st Contact Info) Description 07/08/2024 Orders Only [facility] - Family Medicine [address] [place] [phone] Rivera Simon DO [address] [place] [address] Class 3 severe obesity due to excess calories with serious comorbidity and body mass index (BMI) of 50.0 to 59.9 in adult ([facility]) (Primary Dx) Social History Tobacco Use Types [...] week 06/26/2022 How often do you attend jehovah's witness or buddhist serv ices? Never 06/26/2022 Do you belong to any clubs o r organizations such as jehovah's witness groups, unions, fraternal or athletic groups, or [...] PHQ-2 Answer Date Recorded Total Score 0 07/04/2024 [facility] of Occupat ional Health - Occupational [...] Recorded Do you need help finding a [facility] career center and/or a training program? No 06/26/2022 Hunger Screening Answer Date Recorded Within the past 12 months we worried whether our food would run out before we got money to buy more. Never True 07/04/2024 Within the past 12 months th e food we bought just didn't last and we didn't have money to get more. Never True 07/04/2024 Purpose - Life Answer Date Recorded I [...] (BMI) of 50.0 to 59.9 in adult ([facility]-HCC)- Primary documented in this encounter Additional Health Concerns Assessment Noted Time PHQ-9 Depression Total Score: 0 07/04/19 25 7:55 AM EST documented as of this encounter Care Teams Document Coordinator Relationship Specialty Start Date End Date Rivera Simon DO [address] [id number] PCP - General Internal Medicine 06/13/22 documented as of this encounter
--- OUTSIDE RECORDS SUMMARY | 2024-11-09 07:54 | XMS_ITS | Encounter Summary ---
Author Organization [employer] s tem Address [place]-[id number] [address] [place] [address] Care Team Providers Care Network Pricing Consultant Name Role Phone Rivera Simon DO Primary Care Provider [phone] Encounter Details Date Type Department Care Team (Late st Contact Info) Description 12/16/2022 Orders Only [facility] - Family Medicine [address] [place] [phone] Rivera Simon DO [address] [place] [address] Anxiety Social History Tobacco Use Types Packs/Day Years [...] week 06/26/2022 How often do you attend yazidi or muslim serv ices? Never 06/26/2022 Do you belong to any clubs o r organizations such as yazidi groups, unions, fraternal [...] Answer Date Recorded Total Score 7 06/26/2022 [facility] of Occupat ional Health - Occupational [...] Visit Diagnoses Diagnosis Anxiety Anxiety state, unspecified documented in this encounter Additional Health Concerns Assessment Noted Time PHQ-9 Depression Total Score: 7 06/26/19 23 6:30 PM EST documented as of this encounter Care Teams Network Pricing Consultant Relationship Specialty Start Date End Date Rivera Simon DO [address] [place] [address] PCP - General Internal Medicine 06/13/22 documented as of this encounter
--- OUTSIDE RECORDS SUMMARY | 2024-11-09 07:54 | XMS_ITS | Encounter Summary ---
Author Organization [employer] Sys tem Address [facility] [id number] [address] [place] [address] Care Team Providers Care Machine Set Up Name Role Phone Rivera Simon DO Primary Care Provider [phone] Encounter Details Date Type Department Care Team (Late st Contact Info) Description 09/29/2024 Orders Only [facility] - Family Medicine [address] [place] [phone] Rivera Simon DO [address] [place] [address] Degenerative lumbar spinal stenosis (Primary Dx) Social History Tobacco Use Types [...] week 06/26/2022 How often do you attend cheondoism or sabianist serv ices? Never 06/26/2022 Do you belong to any clubs o r organizations such as cheondoism groups, unions, fraternal or athletic groups, or [...] Answer Date Recorded Total Score 0 07/04/2024 [facility] [place] of Occupat ional Health - Occupational Stress [...] Do you need help finding a l al career center and/or a training program? No [...] stenosis- Primary Spinal stenosis of lumbar region documented in this encounter Additional Health Concerns Assessment Noted Time PHQ-9 Depression Total Score: 0 07/04/19 25 7:55 AM EST documented as of this encounter Care Teams Machine Set Up Relationship Specialty Start Date End Date Rivera Simon DO [address] [place] [address] PCP - General Internal Medicine 06/13/22 documented as of this encounter
--- OUTSIDE RECORDS SUMMARY | 2024-11-09 07:54 | XMS_ITS | Encounter Summary ---
Author Organization [employer] Sys tem Address [facility] [place]-[id number] [address] [place] [address] Care Team Providers Care Dredge Operator Supervisor Name Role Phone Rivera Simon DO Primary Care Provider [phone] Encounter Details Date Type Department Care Team (Late st Contact Info) Description 12/11/2022 Orders Only [facility] - Family Medicine [address] [place] [phone] Rivera Simon DO [address] [place] [address] Class 3 severe obesity due to excess calories with serious comorbidity and body mass index (BMI) of 50.0 to 59.9 in adult ([facility]) Social History Tobacco Use Types [...] week 06/26/2022 How often do you attend temple or congregation serv ices? Never 06/26/2022 Do you belong to any clubs o r organizations such as temple groups, unions, fraternal or athletic groups, or [...] Answer Date Recorded Total Score 7 06/26/2022 [facility] of Occupat ional Health - Occupational Stress [...] Recorded Do you need help finding a [facility] career center and/or a training program? [...] (BMI) of 50.0 to 59.9 in adult ([facility]) documented in this encounter Additional Health Concerns Assessment Noted Time PHQ-9 Depression Total Score: 7 06/26/19 23 6:30 PM EST documented as of this encounter Care Teams Dredge Operator Supervisor Relationship Specialty Start Date End Date Rivera Simon DO [address] [place] [address] PCP - General Internal Medicine 06/13/22 documented as of this encounter
--- OUTSIDE RECORDS SUMMARY | 2024-11-09 07:54 | XMS_ITS | Encounter Summary ---
Author Organization [employer] s tem Address [facility]-[id number] [address] [place] [address] Care Team Providers Care Tourism Radio Presenter Name Role Phone Rivera Simon DO Primary Care Provider [phone] Encounter Details Date Type Department Care Team (Late st Contact Info) Description 06/13/2022 Orders Only [facility] - Family Medicine [address] [place] [phone] Rivera Simon DO [address] [place] [address] Essential hypertension (Primary Dx); Hyperlipidemia, unspecified hyperlipidemia type; Class 3 severe obesity due to excess calories with serious comorbidity and body mass index (BMI) of 50.0 to 59.9 in adult ([facility]) Social History Tobacco Use Types Packs/Day Years [...] on file documented as of this encounter Results * (ABNORMAL) Comprehensive metabolic panel (06/27/2022) External Albumin 3.2(A) 3.4 - 5 MAN UALLY TRANSCRIBED RESULTS External Alt Sgpt 24 15 - 37 MANUALLY TRANSCRIBED RESULTS External Anion Gap 12.8 MANUALLY TRANSCRIBED RESULTS External Ast 16 15 - 37 MANUALL Y TRANSCRIBED RESULTS External Blood Urea Nitrogen Bun 20(A) 7 - 18 MANUALLY TRANSCRIBED RESULTS External Calcium Ca 9.1 8.5 - 10.1 MANUALLY TRANSCRIBED RESULTS External Chloride 100 98 - 107 MANUALLY TRANSCRIBED RESULTS External Co2 / Carbon Dioxide 29.3 21 - 32 MANUALLY TRANSCRIBED RESULTS External Creatinine 0.97 0.7 - 1.30 MANUALLY TRANSCRIBED RESULTS External Gfr Amer >60 MANUALLY TRANSCRIBED RESULTS External Gfr Non Amer >60 MANUALLY TRANSCRIBED RESULTS External Alkaline Phosphatase 79 46 - 116 MANUALLY TRANSCRIBED RESULTS External Glucose Fasting Or Random (Fbs) 102 74 - 106 MANUALLY TRANSCRIBED RESULTS External Potassium K 5.1 3.5 - 5.1 MANUALLY TRANSCRIBED RESULTS External Sodium Na 137(A) 3.5 - 5.1 MANUALLY TRANSCRIBED RESULTS Total Bilirubin 0.3 0.2 - 1.0 MANU ALLY TRANSCRIBED RESULTS External Total Protein 8.2 6.4 - 8.2 MANUALLY TRANSCRIBED RESULTS 06/27/2022 Rivera Simon DO LAB BLOOD ORDERABLES Final Resul t Performing Organization Address City/[facility] [[email or web address]] Co de Phone Number MANUALLY TRANSCRIBED RESULTS * (ABNORMAL) Lipid profile (06/27/2022) External Cholesterol 146 0 - 200 MANUALLY TRANSCRIBED RESULTS External Cholesterol:Hdl 3.2(A) 3.3 - 11.0 MANUALLY TRANSCRIBED RESULTS External Hdl Cholesterol 45 40 - 60 MANUALLY TRANSCRIBED RESULTS External Ldl (Calc) 79.8 MANUALLY TRANSCRIBED RESULTS External Triglycerides 106 0 - 150 MANUALLY TRANSCRIBED RESULTS External Very Low Lipoprotein 21.2 MANUALLY TRANSCRIBED RESULTS 06/27/2022 Rivera Simon DO LAB BLOOD ORDERABLES Final Resul t MANUALLY TRANSCRIBED RESULTS documented in this encounter Visit Diagnoses Diagnosis Essential hypertension- Primary Unspecified essential hypertension Hyperlipidemia, unspecified hyperlipidemia type Class 3 severe obesity due to excess calories with serious comorbidity and body mass index (BMI) of 50.0 to 59.9 in adult ([facility]) documented in this encounter Care Teams Tourism Radio Presenter Relationship Specialty Start Date End Date Rivera Simon DO [address] [place] [address] PCP - General Internal Medicine 06/13/22 documented as of this encounter
--- OUTSIDE RECORDS SUMMARY | 2024-11-09 07:54 | XMS_ITS | Encounter Summary ---
Author Organization [employer] Sys [employer] Address [facility] [place]-[id number] [address] [place] [address] Care Team Providers Care Emergency Technician Name Role Phone Rivera Simon DO Primary Care Provider [phone] Reason for Visit * Reason Comments Med Refill Encounter Details Date Type Department Care Team (Late st Contact Info) Description 05/15/2022 Refill [facility] - Family Medicine [address] [place] [address] Rivera Simon DO [address] [place] [address] Gastroesophageal reflux disease, unspecified whether esophagitis present (Primary Dx) Social History Tobacco Use Types [...] as of this encounter Visit Diagnoses Diagnosis Gastroesophageal reflux disease, unspecified whether esophagitis present- Primary documented in this encounter Care Teams Emergency Technician Relationship Specialty Start Date End Date Rivera Simon DO [address] [place] [address] PCP - General Internal Medicine 06/13/22 documented as of this encounter
--- OUTSIDE RECORDS SUMMARY | 2024-11-09 07:54 | XMS_ITS | Encounter Summary ---
Author Organization [employer] Address [facility] [place]-[id number] [address] [place] [address] Care Team Providers Care Manager Roofing Name Role Phone Rivera Simon DO Primary Care Provider [phone] Reason for Visit * Reason Comments Med Refill Encounter Details Date Type Department Care Team (Late st Contact Info) Description 07/25/2023 Refill [facility] - Family Medicine [address] [place] [address] Rivera Simon DO [address] [place] [address] Anxiety Social History Tobacco Use Types Packs/Day [...] week 06/26/2022 How often do you attend jainism or hoahaoism serv ices? Never 06/26/2022 Do you belong to any clubs o r organizations such as jainism groups, unions, fraternal or athletic groups, or [...] 06/26/2022 PHQ-2 Answer Date Recorded Total Score 0 01/22/2023 [facility] of Occupat ional Health - Occupational Stress [...] got money to buy more. Never True 12/28/2022 Within the past 12 months th e food we bought just didn't last and we didn't have money to get more. Never True 12/28/2022 Purpose - Life Answer Date Recorded I [...] * Telephone Encounter - Rosa So - 07/25/2023 9:59 PM EST Sent mychart * Telephone Encounter - Rosa So - 07/25/2023 9:59 PM EST . * Telephone Encounter - Rosa So - 07/25/2023 9:59 PM EST Does not have health insurance will schedule when he does documented in this encounter Plan of Treatment Not on file documented as of this encounter Visit Diagnoses Diagnosis Anxiety Anxiety state, unspecified documented in this encounter Additional Health Concerns Assessment Noted Time PHQ-9 Depression Total Score: 0 01/23/20 3:26 PM EDT documented as of this encounter Care Teams Manager Roofing Relationship Specialty Start Date End Date Rivera Simon DO [address] [place] [address] PCP - General Internal Medicine 06/13/22 documented as of this encounter
--- OUTSIDE RECORDS SUMMARY | 2024-11-09 07:54 | XMS_ITS | Encounter Summary ---
Author Organization [employer] Address [id number] [address] [place] [address] Care Team Providers Care Nematology Teacher Name Role Phone Rivera Simon Primary Care Provider [phone] Encounter Details Date Type Department Care Team (Late st Contact Info) Description 07/07/2022 Orders Only [facility] - Family Medicine [address] [place] [phone] Pat Cottrell CMA Hyperlipidemia, unspecified hyperlipidemia type Social History Tobacco Use Types Packs/Day Years [...] week 06/26/2022 How often do you attend lutheran or rastafari serv ices? Never 06/26/2022 Do you belong to any clubs o r organizations such as lutheran groups, unions, fraternal or athletic groups, or [...] Answer Date Recorded Total Score 7 06/26/2022 [facility] of Occupat ional Health - [...] Recorded Do you need help finding a [facility] career center and/or a training program? No [...] Procedure Name Priority Date/Time Associated Diagnosis Comments LIPID PROFILE Routine 06/27/2022 Hyperlipidemia, unspecified hyperlipidemia type COMPREHENSIVE METABOLIC PANEL Routine 06/27/2022 Hyperlipidemia, unspecified hyperlipidemia type documented in this encounter Results * (ABNORMAL) Comprehensive metabolic [...] 6.4 - 8.2 MANUALLY TRANSCRIBED RESULTS 06/27/2022 us Rivera Simon DO LAB BLOOD ORDERABLES Final Resul t MANUALLY TRANSCRIBED RESULTS * (ABNORMAL) Lipid profile [...] documented in this encounter Visit Diagnoses Diagnosis Hyperlipidemia, unspecified hyperlipidemia type documented in this encounter Additional Health Concerns Assessment Noted Time PHQ-9 Depression Total Score: 7 06/26/19 6:30 PM EST documented as of this encounter Care Teams Nematology Teacher Relationship Specialty Start Date End Date Rivera Simon DO [facility] [address] [place] [id number] PCP - General Internal Medicine 06/13/22 documented as of this encounter
--- OUTSIDE RECORDS SUMMARY | 2024-11-09 07:54 | XMS_ITS | Encounter Summary ---
Author Organization [employer] Address [id number] [address] [place] [address] Care Team Providers Care Certified Pedorthotist Name Role Phone Rivera Simon DO Primary Care Provider [phone] Encounter Details Date Type Department Care Team (Late st Contact Info) Description 08/07/2022 Orders Only [facility] - Family Medicine [address] [place] [address] Rivera Simon DO [address] [place] [address] Class 3 severe obesity due to excess calories with serious comorbidity and body mass index (BMI) of 50.0 to 59.9 in adult ([facility]) (Primary Dx) Social History Tobacco Use [...] week 06/26/2022 How often do you attend holiness or restoration serv ices? Never 06/26/2022 Do you belong to any clubs o r organizations such as holiness groups, unions, fraternal or athletic groups, or [...] Answer Date Recorded Total Score 7 06/26/2022 [facility] [place] of Occupat ional Health - Occupational Stress [...] Recorded Do you need help finding a [facility] career [facility] and/or a training program? No [...] documented as of this encounter Care Teams Certified Pedorthotist Relationship Specialty Start Date End Date Rivera Simon DO [address] [place] [address] PCP - General Internal Medicine 06/13/22 documented as of this encounter
--- OUTSIDE RECORDS SUMMARY | 2024-11-09 07:54 | XMS_ITS | Encounter Summary ---
Author Organization [employer] s tem Address [id number] [address] [place] [address] Care Team Providers Care Corn Husker Name Role Phone Rivera Simon DO Primary Care Provider [phone] Encounter Details Date Type Department Care Team (Late st Contact Info) Description 07/05/2024 Orders Only [facility] - Family Medicine [address] [place] [address] Rivera Simon DO [address] [place] [address] Social History Tobacco Use Types Packs/Day Years [...] How often do you attend holiness or taoist serv ices? Never 06/26/2022 Do you belong [...] Answer Date Recorded Total Score 0 07/04/2024 [facility] - Occupational Stress Questionnaire Answer Date Recorded [...] Recorded Do you need help finding a [facility] career [facility] and/or a training [...] documented as of this encounter Care Teams Corn Husker Relationship Specialty Start Date End Date Rivera Simon DO [address] [place] [address] PCP - General Internal Medicine 06/13/22 documented as of this encounter
--- OUTSIDE RECORDS SUMMARY | 2024-11-09 07:54 | XMS_ITS | Encounter Summary ---
Author Organization [employer] Address [facility] [id number] [address] [place] [address] Care Team Providers Care Salesforce Consultant Name Role Phone Rivera Simon DO Primary Care Provider [phone] Reason for Visit * Reason Comments Med Refill Encounter Details Date Type Department Care Team (Late st Contact Info) Description 06/12/2022 Refill [facility] - Family Medicine [address] [place] [address] Rivera Simon DO [address] [place] [address] Social History Tobacco Use Types Packs/Day Years [...] on filedocumented in this encounter Care Teams Salesforce Consultant Relationship Specialty Start Date End Date Rivera Simon DO [address] [place] [address] PCP - General Internal Medicine 06/13/22 documented as of this encounter
--- OUTSIDE RECORDS SUMMARY | 2024-11-09 07:54 | XMS_ITS | Encounter Summary ---
Author Organization [employer] Address [facility][id number] [address] [place] [address] Care Team Providers Care Community Center Director Name Role Phone Rivera Simon DO Primary Care Provider [phone] Encounter Details Date Type Department Care Team (Late st Contact Info) Description 09/29/2022 Orders Only [facility] - Family Medicine [address] [place] [address] Rivera Simon DO [address] [place] [address] Class 3 severe obesity due to excess calories with serious comorbidity and body mass index (BMI) of 50.0 to 59.9 in adult ([facility]) Social History Tobacco Use Types Packs/Day [...] week 06/26/2022 How often do you attend shinto or buddhism serv ices? Never 06/26/2022 Do you belong to any clubs o r organizations such as shinto groups, unions, fraternal or athletic groups, or [...] Total Score 7 06/26/2022 [facility] [place] of Occupat ional Health - Occupational Stress [...] Recorded Do you need help finding a [facility] career center and/or a training [...] (BMI) of 50.0 to 59.9 in adult ([facility]) documented in this encounter Additional Health Concerns Assessment Noted Time PHQ-9 Depression Total Score: 7 06/26/19 23 6:30 PM EST documented as of this encounter Care Teams Community Center Director Relationship Specialty Start Date End Date Rivera Simon DO [address] [place] [address] PCP - General Internal Medicine 06/13/22 documented as of this encounter
--- OUTSIDE RECORDS SUMMARY | 2024-11-09 07:54 | XMS_ITS | Encounter Summary ---
Author Organization [employer] Sys [employer] Address [facility]-[id number] [address] [place] [address] Care Team Providers Care Churn Drill Operator Name Role Phone Rivera Simon DO Primary Care Provider [phone] Encounter Details Date Type Department Care Team (Late st Contact Info) Description 10/31/2022 Orders Only [facility] - Family Medicine [address] [place] [address] Rivera Simon DO [address] [place] [address] Anxiety (Primary Dx) Social History Tobacco Use Types [...] week 06/26/2022 How often do you attend synagogue or shinto serv ices? Never 06/26/2022 Do you belong to any clubs o r organizations such as synagogue groups, unions, fraternal or athletic groups, or [...] Answer Date Recorded Total Score 7 06/26/2022 [facility] [place] of Occupat ional Health - Occupational Stress [...] as of this encounter Visit Diagnoses Diagnosis Anxiety- Primary Anxiety state, unspecified documented in this encounter Additional Health Concerns Assessment Noted Time PHQ-9 Depression Total Score: 7 06/26/19 23 6:30 PM EST documented as of this encounter Care Teams Churn Drill Operator Relationship Specialty Start Date End Date Rivera Simon DO [address] [place] [id number] PCP - General Internal Medicine 06/13/22 documented as of this encounter
--- OUTSIDE RECORDS SUMMARY | 2024-11-09 07:54 | XMS_ITS | Clinical Summary ---
Author Organization [facility] Address [address] [place] [address] Care Team Providers Care Cotton Stomper Name Role Phone Unavailable Primary Care Provider Unavailabl e Immunizations Immunization Administration Dates Next Due [id number] COVID-19 monovalen t vaccine, AD26, Carola 0.5 ML 08/12/2020 Social History Tobacco Use Types Packs/Day Years Used Date Smoking Tobacco: Never Assessed Sex and Gender Information Value Date Recorded Sex Assigned at Not on file Legal Sex Male 12:55 PM EST Gender Identity Not on file Sexual Orientation Not on file Plan of Treatment Health Maintenance Due Date Last Done Comments HEPATITIS C VIRUS SCREENING 1982 TETANUS 1982 HIV SCREENING DISCUSSION 1997 HEP B VACCINE (1 of 3 - 19+ 3-dose series) 2001 TDAP (ADULT) 2001 LIPID SCREENING 2022 COVID-19 VACCINE (2 - 2023-2 5 season) 2024 08/12/2020 INFLUENZA VACCINE (Season Ended) 2025 HPV VACCINE Aged Out No longer eligi ble based on patient's age to complete this topic PNEUMOCOCCAL VACCINE SERIES Aged Out No longer eligible based on patient's age to complete this topic
--- OUTSIDE RECORDS SUMMARY | 2024-11-09 07:54 | XMS_ITS | Encounter Summary ---
Author Organization [employer] Address [id number] [address] [place] [address] Care Team Providers Care Sewing Machine Operator Floorperson Name Role Phone Rivera Simon Primary Care Provider [phone] Encounter Details Date Type Department Care Team (Late st Contact Info) Description 01/30/2023 Orders Only [facility] - Family Medicine [address] [place] [phone] External, Scanning Provider Social History Tobacco Use [...] week 06/26/2022 How often do you attend yarsani or yazdanism serv ices? Never 06/26/2022 Do you belong to any clubs o r organizations such as yarsani groups, unions, fraternal or athletic groups, or [...] Answer Date Recorded Total Score 0 01/22/2023 [facility] of Occupat ional Health - Occupational Stress [...] Procedure Name Priority Date/Time Associated Diagnosis Comments MR LUMBAR SPINE W WO CONT Routine 01/27/2013 3:21 PM EDT documented in this encounter Results * MR lumbar spine with and without contrast (01/27/2013 3:21 PM EDT) Anatomical Region Laterality Modality MSK, Neuro, Spine, L-spine, Spine Covera N/A Magnetic Resonance us Scanning Provider External IMG MRI ORDERABLES Fi nal Result documented in this encounter Visit Diagnoses Not on filedocumented in this encounter Additional Health Concerns Assessment Noted Time PHQ-9 Depression Total Score: 0 01/23/20 23 3:26 PM EDT documented as of this encounter Care Teams Sewing Machine Operator Floorperson Relationship Specialty Start Date End Date Rivera Simon DO [address] [place] [address] PCP - General Internal Medicine 06/13/22 documented as of this encounter
--- OUTSIDE RECORDS SUMMARY | 2024-11-09 07:54 | XMS_ITS | Encounter Summary ---
Author Organization [facility] Address [facility][id number] [address] [place] [address] Care Team Providers Care Furniture Mover Name Role Phone Rivera Simon DO Primary Care Provider [phone] Reason for Referral * Medication Prior Authorization - Closed Specialty Diagnoses / Procedures Referred By Contac t Referred To Contact Diagnoses Class 3 severe obesity due to excess calories with serious comorbidity and body mass index (BMI) of 50.0 to 59.9 in adult ([facility] Rivera Simon DO [address] [place] [address] Phone: tel: fax: Referral ID Status Reason Start Date Expiration Date Visits Re quested Visits Authorized [id number] Closed 1 1 Encounter Details Date Type Department Care Team (Late st Contact Info) Description 07/14/2024 Orders Only [facility] - Family Medicine [address] [place] [address] Rivera Simon DO [address] [place], [place] [id number] Class 3 severe obesity due to excess calories with serious comorbidity and body mass index (BMI) of 50.0 to 59.9 in adult ([facility]) Social History Tobacco Use Types Packs/Day Years [...] week 06/26/2022 How often do you attend gnosticist or anabaptism serv ices? Never 06/26/2022 Do you belong to any clubs o r organizations such as gnosticist groups, unions, fraternal or athletic groups, or [...] Answer Date Recorded Total Score 0 07/04/2024 [facility] of Occupat ional [facility] - Occupational Stress Questionnaire Answer Date Recorded [...] Recorded Do you need help finding a [facility] career center and/or a training program? [...] documented as of this encounter Care Teams Furniture Mover Relationship Specialty Start Date End Date Rivera Simon DO [address] [place] [address] PCP - General Internal Medicine 06/13/22 documented as of this encounter
--- OUTSIDE RECORDS SUMMARY | 2024-11-09 07:54 | XMS_ITS | Clinical Summary ---
Author Organization [employer] Address [id number] [address] [place] [address] Care Team Providers Care Spice Miller Name Role Phone Rivera Simon Primary Care Provider [phone] Allergies No known active allergies Medications lisinopril-hydro CHLOROthiazide (PRINZIDE,ZESTOR ETIC) 20-25 mg per tabletIndication s:Essential hypertension Take 1 tablet by mouth in the morning. 90 tablet 1 5 Active sertraline (ZOLOFT) 50 mg tabletIndication s:Anxiety Take 1 tablet (50 mg total) by mouth in the morning. 90 tablet 1 5 Active famotidine (PEPCID) 20 mg tabletIndication s:Gastroesophage al reflux disease, unspecified whether esophagitis present Take 1 tablet (20 mg total) by mouth in the morning and 1 tablet (20 mg total) before bedtime. 180 tablet 1 5 Active meloxicam (MOBIC) 15 mg tabletIndication s:Degenerative lumbar spinal stenosis Take 1 tablet (15 mg total) by mouth in the morning. 90 tablet 1 5 Active topiramate (TOPAMAX) 25 mg tabletIndication s:Class 3 severe obesity due to excess calories with serious comorbidity and body mass index (BMI) of 50.0 to 59.9 in adult ([facility]) Take 1 tablet (25 mg total) by mouth nightly. 30 tablet 2 5 Active phentermine 37.5 MG capsuleIndicatio ns:Class 3 severe obesity due to excess calories with serious comorbidity and body mass index (BMI) of 50.0 to 59.9 in adult ([facility]) Take 1 capsule (37.5 mg total) by mouth every morning. 30 capsule 5 Active baclofen (LIORESAL) 10 mg tabletIndication s:Degenerative lumbar spinal stenosis Take 1 tablet (10 mg total) by mouth 3 (three) times a day. 30 tablet 2 5 Active baclofen (LIORESAL) 10 mg tabletIndication s:Degenerative lumbar spinal stenosis Take 1 tablet (10 mg total) by mouth 3 (three) times a day. 30 tablet 5 10/30/19 25 Discontinue d(Reorder) predniSONE (DELTASONE) 20 mg tabletIndication s:Degenerative lumbar spinal stenosis Take 2 tablets (40 mg total) by mouth in the morning for 5 days. 10 tablet 5 11/04/19 25 Active Problems Problem Noted Date Diagnosed Date Anxiety 06/22/2022 Degenerative lumbar spinal stenosis 06/13/2022 Hyperlipidemia 06/13/2022 Class 3 severe obesity due t o excess calories with serious comorbidity and body mass index (BMI) of 50.0 to 59.9 in adult 06/13/2022 Essential hypertension 06/13/2022 Encounters Date Type Department Care Team Description 10/29/2024 12:30 PM EDT Office Visit [facility] - Family Medicine [address] [place] [address] Rivera Simon DO Degenerative lumbar spinal stenosis (Primary Dx); Dermatitis; Class 3 severe obesity due to excess calories with serious comorbidity and body mass index (BMI) of 50.0 to 59.9 in adult ([facility]) 10/28/2024 Travel 09/29/2024 Orders Only [facility] - Family Medicine [address] [place] [address] Rivera Simon DO Degenerative lumbar spinal stenosis (Primary Dx) from Last 3 Months Family History Medical History Relation Name Comments Heart disease Father Hypertension Father Hyperlipidemia Mother Hypertension Mother Relation Name Status Comments Father Mother Alive Social History Tobacco Use Types Packs/Day Years Used Date Smoking Tobacco: Never Smokeless Tobacco: Never Tobacco Cessation:Counseling Given: Not Answered Alcohol Use Standard Drinks/Week Comments Not Currently [...] week 06/26/2022 How often do you attend episcopalian or judaism serv ices? Never 06/26/2022 Do you belong to any clubs o r organizations such as episcopalian groups, unions, fraternal or athletic groups, or [...] Answer Date Recorded Total Score 0 10/29/2024 [facility] [place] of Occupat ional Health - Occupational Stress [...] Recorded Do you need help finding a [facility] career center and/or a training program? [...] on file Sexual Orientation Not on file Last Filed Vital Signs Vital Sign Reading [...] Mass Index 57.36 10/29/2024 12:36 PM EDT Plan of Treatment Health Maintenance Due Date Last Done Comments Adult BMI Follow Up Plan 2000 DTaP,Tdap and Td Vaccines (1 - Tdap) 2001 COVID-19 Vaccine (2 - season) 02/03/202404/2021 Influenza Vaccine 02/02/2025 Adult BMI Screening 10/29/2025 10/29/2024 Depression Screening 10/29/2025 10/29/2024 Tobacco Screening 10/29/2025 10/29/2024 Medical Devices Not on file Insurance [employer] Care Teams Spice Miller Relationship Specialty Start Date End Date Rivera Simon DO [address] [place] [address] PCP - General Internal Medicine 06/13/22
--- OUTSIDE RECORDS SUMMARY | 2024-11-09 07:54 | XMS_ITS | Encounter Summary ---
Author Organization [employer] Address [id number] [address] [place] [address] Care Team Providers Care Die Assembler Name Role Phone Rivera Simon DO Primary Care Provider [phone] Encounter Details Date Type Department Care Team (Late st Contact Info) Description 08/29/2022 Orders Only [facility] - Family Medicine [address] [place] [address] Rivera Simon DO [address] [place] [address] Class 3 severe obesity due to excess calories with serious comorbidity and body mass index (BMI) of 50.0 to 59.9 in adult ([facility]) Social History Tobacco Use Types Packs/Day Years [...] week 06/26/2022 How often do you attend episcopal or anabaptist serv ices? Never 06/26/2022 Do you belong to any clubs o r organizations such as episcopal groups, unions, fraternal or athletic groups, or [...] Answer Date Recorded Total Score 7 06/26/2022 [facility] [place] of Occupat ional Health - Occupational Stress [...] Recorded Do you need help finding a [facility] career center and/or a training program? [...] (BMI) of 50.0 to 59.9 in adult ([facility]) documented in this encounter Additional Health Concerns Assessment Noted Time PHQ-9 Depression Total Score: 7 06/26/19 23 6:30 PM EST documented as of this encounter Care Teams Die Assembler Relationship Specialty Start Date End Date Rivera Simon DO [address] [place] [address] PCP - General Internal Medicine 06/13/22 documented as of this encounter
--- OUTSIDE RECORDS SUMMARY | 2024-11-09 07:54 | XMS_ITS | Encounter Summary ---
Author Organization [facility] Address [id number] [address] [place] [address] Care Team Providers Care Fuel Cell Battery Technician Name Role Phone Rivera Simon DO Primary Care Provider [phone] Reason for Visit * Reason Onset Date Comments Med Refill 06/15/2024 Encounter Details Date Type Department Care Team (Late st Contact Info) Description 06/15/2024 Refill [facility] - Family Medicine [address] [place] [address] Rivera Simon DO [address] [place] [address] Class 3 severe obesity due to excess calories with serious comorbidity and body mass index (BMI) of 50.0 to 59.9 in adult ([facility]) Social History Tobacco Use Types [...] week 06/26/2022 How often do you attend advent or oriental orthodox serv ices? Never 06/26/2022 Do you belong to any clubs o r organizations such as advent groups, unions, fraternal or athletic groups, or [...] Answer Date Recorded Total Score 0 01/22/2023 [facility] of Occupat ional Health - Occupational [...] Recorded Do you need help finding a [facility] career center and/or a training program? No [...] encounter Miscellaneous Notes * Telephone Encounter - Rivera Simon DO - 06/15/2024 9:12 AM EST Duplicate request documented in this encounter Plan of Treatment [...] documented as of this encounter Care Teams Fuel Cell Battery Technician Relationship Specialty Start Date End Date Rivera Simon DO [address] [place] [address] PCP - General Internal Medicine 06/13/22 documented as of this encounter
--- OUTSIDE RECORDS SUMMARY | 2024-11-09 07:55 | XMS_ITS | CCD ---
Author Organization [facility] Care Team Providers Care Professor Of Practice Name Role Phone DR MARYBETH BEE Attending Unavailable ROHIT, DR RUEDA Consulting Unavailable ROHIT, DR RUEDA Primary Care Unavailable ROHIT, DR RUEDA Admitting Unavailable Marybeth Bee DO Primary Care Provider MARYBETH BEE Referring MARYBETH Taylor Primary Care Unavailable Marybeth Bee DO Primary Care Provider [phone] MARYBETH BEE Attending MARYBETH Taylor Referring Unavailable [...] (BMI) of 50.0 to 59.9 in adult ([facility]) Take 1 capsule (37.5 mg total) by mouth every morning. 30 capsule 07/14/2024 Active Start: 07-08-2024 End: 07-09-2024 take 50-59.9 capsules by mouth once daily in the morning phentermine 37.5 MG capsule Indications: Class 3 severe obesity due to excess calories with serious comorbidity and body mass index (BMI) of 50.0 to 59.9 in adult ([facility]) TAKE 1 CAPSULE BY MOUTH EVERY MORNING 30 capsule 07/09/2024 Active Start: 09-05-2023 take 50-59.9 tablets by mouth once daily before breakfast phentermine (ADIPEX-P) 37.5 mg tablet Indications: Class 3 severe obesity due to excess calories with serious comorbidity and body mass index (BMI) of 50.0 to 59.9 in adult ([facility]) Take 1 tablet (37.5 mg total) by [...] (BMI) of 50.0 to 59.9 in adult ([facility]) Take 1 tablet (25 mg total) by [...] (BMI) of 50.0 to 59.9 in adult ([facility]) Inject 0.5 mL (0.5 mg total) under [...] (BMI) of 50.0 to 59.9 in adult ([facility]) Inject 0.75 mL (2.4 mg total) under the skin every 7 days. 9 mL 1 12/28/2022 09/05/2023 Discontinued (Cost of medication) Start: 12-28-2022 semaglutide, w eight loss, (WEGOVY) 2.4 mg/0.75 mL pen injector Indications: Class 3 severe obesity due to excess calories with serious comorbidity and body mass index (BMI) of 50.0 to 59.9 in adult ([facility]) Inject 0.75 mL (2.4 mg total) under [...] 07-04-2024 Albumin [Mass/Vol] 4.4 g/dL Normal 3.2-5.3 [facility] Comment on above: Performed By: #### Guy ALVAREZ 20063-7 #### [facility] ([id number]) [address], [address] [place] [address] ALP [Catalytic activity/Vol] 65 U/L Normal 39-130 [facility] Comment on above: Performed By: #### Guy ALVAREZ 47201-4 #### [facility] ([id number]) [address], [address] [place] [address] ALT [Catalytic activity/Vol] 26 U/L Normal 0-40 [facility] Comment on above: Performed By: #### Guy ALVAREZ, 69774-6 #### [facility] ([id number]) [address], [address] [place] [address] Anion gap [Moles/Vol] 8 mmol/L Normal 5-15 [facility] Comment on above: Performed By: #### Guy ALVAREZ 79587-1 #### [facility] ([id number]) [address], [address] [place] [address] AST [Catalytic activity/Vol] 18 U/L Normal 0-41 [facility] Comment on above: Performed By: #### Guy ALVAREZ 02933-4 #### [facility] ([id number]) [address], [address] [place] [address] Bilirubin [Mass/Vol] 0.6 mg/dL Normal 0.3-1.2 [facility] Comment on above: Performed By: #### Guy ALVAREZ, 03093-1 #### [facility] ([id number]) [address], [address] [place] [address] Calcium [Mass/Vol] 9.2 mg/dL Normal 8.5-10.5 [facility] Comment on above: Performed By: #### Guy ALVAREZ, 21816-1 #### [facility] ([id number]) [address] [address] [place] [address] Chloride [Moles/Vol] 100 mmol/L Normal 98-109 [facility] Comment on above: Performed By: #### Guy ALVAREZ, 93101-3 #### [facility] ([id number]) [address], [address] [place] [address] CO2 [Moles/Vol] 30 mmol/L Normal 22-32 [facility] Comment on above: Performed By: #### Guy ALVAREZ, 07793-6 #### [facility] ([id number]) [address], [facility] [address] [place] [address] Creatinine [Mass/Vol] 0.86 mg/dL Normal 0.60-1.30 [facility] Comment on above: Result Comment: METH OD TRACEABLE TO IDMS STANDARD Performed By: #### Guy ALVAREZ, 93306-0 #### [facility] ([id number]) [address] [address] [place] [address] eGFR (CKD-EPI) NON-RACE DEPENDENT >90 Normal >59 [facility] Comment on above: Result Comment: Reported eGFR is based on the CKD-EPI 2020 equation that does not use a race coefficient. Performed By: #### Guy ALVAREZ, 14391-9 #### [facility] ([id number]) [address], [address] [place] [address] Glucose [Mass/Vol] 95 mg/dL Normal 65-99 [facility] Comment on above: Performed By: #### Guy ALVAREZ, 91689-9 #### [facility] ([id number]) [address] [place] [address] Potassium [Moles/Vol] 4.3 mmol/L Normal 3.5-5.0 [facility] Comment on above: Performed By: #### Guy ALVAREZ, 80370-0 #### [facility] ([id number]) [address], [address] [place] [address] Protein [Mass/Vol] 7.4 g/dL Normal 6.0-8.0 [facility] Comment on above: Performed By: #### Guy ALVAREZ, 76840-0 #### [facility] ([id number]) [address], [address] [place] [address] Sodium [Moles/Vol] 138 mmol/L Normal 134-146 [facility] Comment on above: Performed By: #### Guy ALVAREZ, 73759-5 #### [facility] ([id number]) [address], [address] [place] [address] Urea nitrogen [Mass/Vol] 21 mg/dL Normal 5-23 [facility] Comment on above: Performed By: #### Guy ALVAREZ, 29668-1 #### [facility] ([id number]) [address] [place] [address] Lipid 1996 panelon 5 Cholesterol [Mass/Vol] 182 mg/dL Normal 150-200 [facility] Comment on above: Performed By: #### Guy ALVAREZ, 06064-0 #### [facility] ([id number]) [address] [place] [address] Cholesterol in HDL [Mass/Vol] 43 mg/dL Normal >39 [facility] Comment on above: Result Comment: HDL <40 mg/dL - High Risk HDL > or = 40mg/dL- Desirable HDL >60 mg/dL - Negative Risk Performed By: #### Guy ALVAREZ, 02209-2 #### [facility] ([id number]) [address] [place] [address] Cholesterol in LDL [Mass/Vol] 119 mg/dL Normal <130 [facility] Comment on above: Result Comment: LDL <100 mg/dL - Desirable LDL >160 mg/dL - High Risk Performed By: #### Guy ALVAREZ, 08783-1 #### [facility] ([id number]) [address], [address] [place] [address] Cholesterol in VLDL [Mass/Vol] 20 mg/dL Normal 0-30 [facility] Comment on above: Performed By: #### Guy ALVAREZ, 47225-8 #### [facility] ([id number]) [address], [address] [place] [address] CHOLESTEROL:HDL 4.2 Normal 1.0-5.0 [facility] Comment on above: Performed By: #### Guy ALVAREZ, 13950-1 #### [facility] ([id number]) [address] [address] [place] [address] Triglyceride [Mass/Vol] 102 mg/dL Normal 27-150 [facility] Comment on above: Performed By: #### Guy ALVAREZ, 14811-1 #### [facility] ([id number]) [address] [address] [place] [address] LIPID PROFILEon 06-27-2022 CHOL-HDL RATIO NORM SEE BELOW Normal [facility] Comment on above: Result Comment: 3.3 - 4.4 LOW RISK 4.4 - 7.1 AVERAGE RISK 7.1 - 11.0 MODERATE RISK >11.0 HIGH RISK Performed By: #### C MP, LIPID #### [facility] [address] [place] [address] Dr. Kimmie Palacios Cholesterol [Mass/Vol] 146 mg/dL Normal <=200 [facility] Comment on above: Performed By: #### C MP, LIPID #### [facility] [address] [address] [address] Kimmie Palacios Cholesterol in HDL [Mass/Vol] 45 mg/dL Normal 40-60 [facility] Comment on above: Performed By: #### C MP, LIPID #### [facility] [address] [place] [address] Dr. Kimmie Palacios Cholesterol in LDL [Mass/Vol] 79.8 mg/dL Normal [facility] Comment on above: Performed By: #### C MP, LIPID #### [facility] [address] [place] [address] Dr. Kimmie Palacios Cholesterol.total/C holesterol in HDL [Mass ratio] 3.2 {ratio} Normal [facility] Comment on above: Performed By: #### C MP, LIPID #### [facility] [address] [place] [address] Dr. Kimmie Palacios HDL NORMAL > or = 60 mg/dl - LOW CARDIOVASCULAR RISK <40 mg/dl - HIGH CARDIOVASCULAR RISK Normal [facility] Comment on above: Performed By: #### C MP, LIPID #### [facility] [address] [place] [address] Dr. Kimmie Palacios LDL CALC NORMAL SEE BELOW Normal [facility] Comment on above: Result Comment: <100 mg/dl OPTIMAL 100 - 129 mg/dl NEAR OR ABOVE OPTIMAL 130 - 159 mg/dl BORDERLINE HIGH 160 - 189 mg/dl HIGH >190 mg/dl VERY HIGH Performed By: #### C MP, LIPID #### [facility] [address] [place] [address] Dr. Kimmie Palacios Triglyceride [Mass/Vol] 106 mg/dL Normal <=150 [facility] Comment on above: Performed By: #### C MP, LIPID #### [facility] [address] [place] [address] Dr. Kimmie Palacios VLDL CALC 21.2 mg/dL Normal [facility] Comment on above: Performed By: #### C MP, LIPID #### [facility] [address] [place] [address] Dr. Kimmie Palacios PROF 14(COMP METB)on 023 Albumin [Mass/Vol] 3.2 g/dL Critically low 3.4-5.0 [facility] Comment on above: Performed By: #### C MP, LIPID #### [facility] [address] [place] [address] Dr. Kimmie Palacios Albumin/Globulin [Mass ratio] 0.6 {ratio} Normal [facility] Comment on above: Performed By: #### C MP, LIPID #### [facility] [address] [place] [address] Dr. Kimmie Palacios ALP [Catalytic activity/Vol] 79 U/L Normal 46-116 [facility] Comment on above: Performed By: #### C MP, LIPID #### [facility] [address] [place] [address] Dr. Kimmie Palacios ALT [Catalytic activity/Vol] 24 U/L Normal 16-63 [facility] Comment on above: Performed By: #### C MP, LIPID #### [facility] [address] [place] [address] Dr. Kimmie Palacios Anion gap [Moles/Vol] 12.8 mmol/L Normal [facility] Comment on above: Performed By: #### C MP, LIPID #### [facility] [address] [place] [address] Dr. Kimmie Palacios AST [Catalytic activity/Vol] 16 U/L Normal 15-37 [facility] Comment on above: Performed By: #### C MP, LIPID #### [facility] [address] [place] [address] Dr. Kimmie Palacios Bilirubin [Mass/Vol] 0.3 mg/dL Normal 0.2-1.0 [facility] Comment on above: Performed By: #### C MP, LIPID #### [facility] [address] [address] [address] Kimmie Palacios Calcium [Mass/Vol] 9.1 mg/dL Normal 8.5-10.1 [facility] Comment on above: Performed By: #### C MP, LIPID #### [facility] [address] [address] [address] Kimmie Palacios Chloride [Moles/Vol] 100 mmol/L Normal 98-107 [facility] Comment on above: Performed By: #### C MP, LIPID #### [facility] [address] [place] [address] Dr. Kimmie Palacios CO2 [Moles/Vol] 29.3 mmol/L Normal 21.0-32.0 [facility] Comment on above: Performed By: #### C MP, LIPID #### [facility] [address] [place] [address] Dr. Kimmie Palacios Creatinine [Mass/Vol] 0.97 mg/dL Normal 0.70-1.30 [facility] Comment on above: Performed By: #### C MP, LIPID #### [facility] [address] [place] [address] Dr. Kimmie Palacios EGFR-AF MARTINIQUAIS >60 Normal >=60 [facility] Comment on above: Performed By: #### C MP, LIPID #### [facility] [address] [place] [address] Dr. Kimmie Palacios EGFR-NON AF MARTINIQUAIS >60 Normal >=60 [facility] Comment on above: Performed By: #### C MP, LIPID #### [facility] [address] [place] [address] Dr. Kimmie Palacios Globulin (S) [Mass/Vol] 5.0 g/dL Normal [facility] Comment on above: Performed By: #### C MP, LIPID #### [facility] [address] [place] [address] Dr. Kimmie Palacios Glucose [Mass/Vol] 102 mg/dL Normal 74-[address] [facility] Comment on above: Performed By: #### C MP, LIPID #### [facility] [address] [address] [address] Kimmie Palacios Potassium [Moles/Vol] 5.1 mmol/L Normal 3.5-5.1 [facility] Comment on above: Performed By: #### C MP, LIPID #### [facility] [address] [place] [address] Dr. Kimmie Palacios Protein [Mass/Vol] 8.2 g/dL Normal 6.4-8.2 [facility] Comment on above: Performed By: #### C MP, LIPID #### [facility] [address] [address] [address] Kimmie Palacios Sodium [Moles/Vol] 137 mmol/L Normal 136-[address] [facility] Comment on above: Performed By: #### C MP, LIPID #### [facility] [address] [place] [address] Dr. Kimmie Palacios Urea nitrogen [Mass/Vol] 20.0 mg/dL Critically high 7.0-18.0 [facility] Comment on above: Performed By: #### C MP, LIPID #### [facility] [address] [address] [address] Kimmie Palacios Urea nitrogen/Creatinine [Mass ratio] 20.6 mg/mg Normal [facility] Comment on above: Performed By: #### C MP, LIPID #### [facility] [address] [place] [address] Dr. Kimmie Palacios COMPREHENSIVE METABOLIC PANE Salbador 08-05-2021 Albumin [Mass/Vol] 4.1 g/dL Normal 3.6-5.1 [facility] Comment on above: Performed By: #### 7 600, 01311 #### [facility] [address], [address] [place] [phone] [employer]: Vicente Ahmadi MD Albumin/Globulin [Mass ratio] 1.3 {ratio} Normal 1.0-2.5 [facility] Comment on above: Performed By: #### 7 600, 09759 #### [facility] [address], [address] [place] [phone] [employer]: Vicente Ahmadi MD ALP [Catalytic activity/Vol] 67 U/L Normal 36-130 [facility] Comment on above: Performed By: #### 7 600, 24730 #### [facility] of [address] [place] [address] [employer]: Vicente Ahmadi MD ALT [Catalytic activity/Vol] 21 U/L Normal 9-46 [facility] Comment on above: Performed By: #### 7 600, 97783 #### [facility] [place] [address] [employer]: Vicente Ahmadi MD AST [Catalytic activity/Vol] 16 U/L Normal 10-40 [facility] Comment on above: Performed By: #### 7 600, 86792 #### [facility] [place] [address] [employer]: Vicente Ahmadi MD Bilirubin [Mass/Vol] 0.4 mg/dL Normal 0.2-1.2 [facility] Comment on above: Performed By: #### 7 600, 15009 #### [facility] [place] [address] [employer]: Vicente Ahmadi MD BUN/CREATININE RATIO NOT APPLICABLE Normal 6-22 [facility] Comment on above: Performed By: #### 7 600, 39350 #### [facility] [place] [address] [employer]: Vicente Ahmadi MD Calcium [Mass/Vol] 9.1 mg/dL Normal 8.6-10.3 [facility] Comment on above: Performed By: #### 7 600, 52031 #### [facility] [place] [address] [employer]: Vicente Ahmadi MD Chloride [Moles/Vol] 101 mmol/L Normal 98-110 [facility] Comment on above: Performed By: #### 7 600, 84889 #### [facility] [place] [address] [employer]: Vicente Ahmadi MD CO2 [Moles/Vol] 27 mmol/L Normal 20-32 [facility] Comment on above: Performed By: #### 7 600, 36872 #### [facility] [place] [address] [employer]: Vicente Ahmadi MD Creatinine [Mass/Vol] 0.86 mg/dL Normal 0.60-1.35 [facility] Comment on above: Performed By: #### 7 600, 31886 #### [facility] [place] [address] [employer]: Vicente Ahmadi MD eGFR NON-AFR. MARTINIQUAIS 110 mL/min/1.73m2 Normal > OR = 60 [facility] Comment on above: Performed By: #### 7 600, 76871 #### [facility] [place] [address] [employer]: Vicente Ahmadi MD GFR/1.73 sq M.predicted among blacks MDRD (S/P/Bld) [Vol rate/Area] 127 mL/min/{1.73_m2} Normal > OR = 60 [facility] Comment on above: Performed By: #### 7 600, 25943 #### [facility] [place] [address] [employer]: Vicente Ahmadi MD Globulin (S) [Mass/Vol] 3.1 g/dL Normal 1.9-3.7 [facility] Comment on above: Performed By: #### 7 600, 33101 #### [facility] [place] [address] [employer]: Vicente Ahmadi MD Glucose [Mass/Vol] 92 mg/dL Normal 65-99 [facility] Comment on above: Result Comment: Fasting reference interval Performed By: #### 7 600, 84008 #### [facility] [place] [address] [employer]: Vicente Ahmadi MD Potassium [Moles/Vol] 4.5 mmol/L Normal 3.5-5.3 [facility] Comment on above: Performed By: #### 7 600, 40024 #### [facility] of [address], [address] [place] [address] [employer]: Vicente Ahmadi MD Protein [Mass/Vol] 7.2 g/dL Normal 6.1-8.1 [facility] Comment on above: Performed By: #### 7 600, 71697 #### [facility] of [address], [address] [place] [address] [employer]: Vicente Ahmadi MD Sodium [Moles/Vol] 136 mmol/L Normal 135-146 [facility] Comment on above: Performed By: #### 7 600, 07124 #### [facility] [address] [address] [employer]: Vicente Ahmadi MD Urea nitrogen [Mass/Vol] 21 mg/dL Normal 7-25 [facility] Comment on above: Performed By: #### 7 600, 53584 #### [facility] [place] [address] [employer]: Vicente Ahmadi MD LIPID PANEL, [facility] 03-0 Cholesterol [Mass/Vol] 156 mg/dL Normal <200 [facility] Comment on above: Order Comment: FASTI NG:YES FASTING: YES Performed By: #### 7 600, 39478 #### [facility] [place] [address] [employer]: Vicente Ahmadi MD Cholesterol in HDL [Mass/Vol] 42 mg/dL Normal > OR = 40 [facility] Comment on above: Order Comment: FASTI NG:YES FASTING: YES Performed By: #### 7 600, 16654 #### [facility] [place] [address] [employer]: Vicente Ahmadi MD Cholesterol in LDL [Mass/Vol] [...] LDL-C. Marcus PHILIPPE et al. ZOEY. 2013;310(19): 3313-0048 (http://[email or web address].PagPop/faq/VIG514) Performed By: #### 7 600, 60930 #### [facility] [address], [address] [place] [address] [employer]: Vicente Ahmadi MD Cholesterol.total/C holesterol in HDL [Mass ratio] 3.7 {ratio} Normal <5.0 [facility] Comment on above: Order Comment: FASTI NG:YES FASTING: YES Performed By: #### 7 600, 39528 #### [facility] [address], [address] [place] [address] [employer]: Vicente Ahmadi MD NON HDL CHOLESTEROL 114 mg/dL (calc) Normal <130 [facility] Comment on above: Order Comment: FASTI NG:YES FASTING: YES Result Comment: For patients with diabetes plus 1 major ASCVD risk factor, treating to a non-HDL-C goal of <100 mg/dL (LDL-C of <70 mg/dL) is considered a therapeutic option. Performed By: #### 7 600, 34637 #### [facility] [address], [address] [place] [address] [employer]: Vicente Ahmadi MD Triglyceride [Mass/Vol] 108 mg/dL Normal <150 [facility] Comment on above: Order Comment: FASTI NG:YES FASTING: YES Performed By: #### 7 600, 70118 #### [facility] [place] [address] [employer]: Vicente Ahmadi MD Vital Signs Date Time Vital Sign Value Performing Clinician Facility 10-29-2024 12:36-0400 Body height 193 cm Marybeth Bee DO Work Phone: [facility] 10-29-2024 12:36-0400 Body mass index (BMI) [Ratio] 57.36 kg/m2 Marybteh Garcias DO Work Phone: [facility] 10-29-2024 12:36-0400 Body temperature 97.5 [degF] Marybeth Garcias DO Work Phone: [facility] 10-29-2024 12:36-0400 Body weight 213.64 kg Marybeth Garcias DO Work Phone: [facility] 10-29-2024 12:36-0400 Diastolic blood pressure 72 mm[Hg] Marybeth Garcias DO Work Phone: [facility] 10-29-2024 12:36-0400 Heart rate 92 /min Marybeth Garcias DO Work Phone: [facility] 10-29-2024 12:36-0400 Respiratory rate 20 /min Marybeth Garcias DO Work Phone: [facility] 10-29-2024 12:36-0400 SaO2% (BldA) [Mass fraction] 100 % Marybeth Garcias DO Work Phone: [facility] 10-29-2024 12:36-0400 Systolic blood pressure 118 mm[Hg] Marybeth Bee DO Work Phone: [facility] 07-04-2024 07:55-0500 Body height 193 cm Marybeth Garcias DO Work Phone: [facility] 07-04-2024 07:55-0500 Body mass index (BMI) [Ratio] 57.87 kg/m2 Marybeth Garcias DO Work Phone: [facility] 07-04-2024 07:55-0500 Body temperature 97.39 [degF] Marybeth Garcias DO Work Phone: [facility] 07-04-2024 07:55-0500 Body weight 215.64 kg Marybeth Garcias DO Work Phone: [facility] 07-04-2024 07:55-0500 Diastolic blood pressure 72 mm[Hg] Marybeth Bee DO Work Phone: [facility] 07-04-2024 07:55-0500 Heart rate 97 /min Marybeth Bee DO Work Phone: [facility] 07-04-2024 07:55-0500 SaO2% (BldA) [Mass fraction] 98 % Marybeth Bee DO Work Phone: [facility] [employer] 07-04-2024 07:55-0500 Systolic blood pressure 120 mm[Hg] Marybeth Bee DO Work Phone: [facility] [employer] 09-05-2023 16:57-0400 Body mass index (BMI) [Ratio] 56.6 kg/m2 Marybeth Bee DO Work Phone: [facility] 09-05-2023 16:57-0400 Body weight 210.92 kg Marybeth Bee DO Work Phone: [facility] [employer] 09-05-2023 16:57-0400 Diastolic blood pressure 78 mm[Hg] Marybeth Bee DO Work Phone: [facility] 09-05-2023 16:57-0400 Systolic blood pressure 124 mm[Hg] Marybeth Bee DO Work Phone: [facility] Encounters Encounter Date Encounter Type Care Provider Facility Start: 10-29-2024 End: 10-29-2024 Office outpatient visit 25 minutes Marybeth Bee DO Work Phone: [facility] - [facility] Comment on above: Degenerative lumbar spinal stenosis (Primary Dx); Dermatitis; Class 3 severe obesity due to excess calories with serious comorbidity and body mass index (BMI) of 50.0 to 59.9 in adult ([facility] [facility] Start: 10-29-2024 End: 10-29-2024 ambulatory [facility] Start: 07-09-2024 End: 07-09-2024 Refill Marybeth L Yuhas DO Work Phone: [facility] Comment on above: Class 3 severe obesi ty due to excess calories with serious comorbidity and body mass index (BMI) of 50.0 to 59.9 in adult ([facility]) Start: 07-07-2024 End: 07-07-2024 Refill Marybeth eBe DO Work Phone: [facility] Comment on above: Essential hypertensi on; Anxiety; Gastroesophageal reflux disease, unspecified whether esophagitis present; Degenerative lumbar spinal stenosis Start: 07-04-2024 End: 07-04-2024 ambulatory [facility] Start: 07-04-2024 End: 07-04-2024 Office outpatient visit 25 minutes Marybeth Bee DO Work Phone: [facility] Internal [facility] - Family Medicine Comment on above: Essential hypertensi on (Primary Dx); Class 3 severe obesity due to excess calories with serious comorbidity and body mass index (BMI) of 50.0 to 59.9 in adult ([facility]); JILLIAN (obstructive sleep apnea); Hyperlipidemia, unspecified hyperlipidemia type; Degenerative lumbar spinal stenosis Start: 07-04-2024 End: 07-04-2024 ambulatory [facility] Start: 06-06-2024 End: 06-06-2024 Refill Marybeth Bee DO Work Phone: [facility] Internal Medicine - Family Medicine Comment on above: Essential hypertensi on; Anxiety; Gastroesophageal reflux disease, unspecified whether esophagitis present; Degenerative lumbar spinal stenosis Start: 05-15-2024 End: 05-16-2024 Refill Marybeth Bee DO Work Phone: [facility] Comment on above: Degenerative lumbar spinal stenosis Start: 04-14-2024 End: 04-14-2024 Refill Marybeth Garcias DO Work Phone: [facility] Comment on above: Degenerative lumbar spinal stenosis Start: 03-04-2024 End: 03-04-2024 Refill Marybeth Garcias DO Work Phone: [facility] Internal Medicine Family Medicine Comment on above: Degenerative lumbar spinal stenosis; Essential hypertension; Anxiety; Gastroesophageal reflux disease, unspecified whether esophagitis present Start: 02-01-2024 End: 02-05-2024 Refill Marybeth Garcias DO Work Phone: [facility] Internal Medicine - Family Medicine Comment on above: Anxiety; Gastroesophageal reflux disease, unspecified whether esophagitis present; Essential hypertension Degenerative lumbar spinal stenosis Start: 01-10-2024 End: 01-10-2024 Refill Darby Ham CNA [facility] Internal Medicine - Family Medicine Comment on above: Degenerative lumbar spinal stenosis Start: 01-07-2024 End: 01-07-2024 Refill Lizeth Turner CMA [facility] Internal Medicine - Family Medicine Comment on above: Degenerative lumbar spinal stenosis Start: 12-05-2023 End: 12-07-2023 Refill Marybeth Garcias DO Work Phone: [facility] Internal Medicine Family Medicine Comment on above: Degenerative lumbar spinal stenosis Start: 10-29-2023 End: 10-29-2023 Refill Marybeth Garcias DO Work Phone: [facility] Internal Medicine Family Medicine Comment on above: Degenerative lumbar spinal stenosis Start: 10-19-2023 End: 10-19-2023 Refill Marybeth Garcias DO Work Phone: [facility] Internal Medicine Family Medicine Comment on above: Gastroesophageal ref lux disease, unspecified whether esophagitis present; Essential hypertension Start: 10-16-2023 End: 10-24-2023 Telephone encounter Marybeth Garcias DO Work Phone: [facility] Internal Medicine - Family Medicine Start: 09-05-2023 End: 09-05-2023 Office outpatient visit 15 minutes Marybeth Garcias DO Work Phone: [facility] Internal Medicine Family Medicine Comment on above: Class 3 severe obesi ty due to excess calories with serious comorbidity and body mass index (BMI) of 50.0 to 59.9 in adult ([facility]) (Primary Dx); Essential hypertension; Degenerative lumbar spinal [...] Adult BMI Screening Adult BMI Screen ing [facility] Start: 07-04-2025 Depression Screening Depression Scre ening [facility] Start: 07-04-2025 Tobacco Screening Tobacco Screening [facility] Start: 02-02-2025 Influenza vaccination Influenza Vacc ine [facility] Start: 09-04-2024 Adult BMI Screening Adult BMI Screen ing [facility] Start: 09-04-2024 Tobacco Screening Tobacco Screening [facility] Start: 08-05-2024 End: 08-05-2024 Telemedicine consultation with patient 08/05/2024 3:45 PM EST Telemedicine [facility] Internal Medicine - Family Medicine [address] [place] [address] Marybeth Bee DO [address] [place] [address] [facility] Start: 07-04-2024 End: 07-04-2024 Patient encounter procedure 07/04/2024 8:00 AM EST Office Visit [facility] - [facility] Medicine [address] [place] [address] Marybeth Bee, [address] [place] [address] [facility] Internal [facility] - Family Medicine Start: 02-03-2024 COVID-19 Vaccine ( season) COVID-19 Vaccine ( season) [facility] Start: 02-03-2024 COVID-19 Vaccine ( season) COVID-19 Vaccine ( season) [facility] Start: 02-03-2024 Influenza vaccination Influenza Vacc ine [facility] Start: 01-23-2024 Adult BMI Screening Adult BMI Screen ing [facility] Start: 01-23-2024 Depression Screening Depression Scre ening [facility] Start: 01-23-2024 Tobacco Screening Tobacco Screening [facility] Start: 02-02-2023 COVID-19 Vaccine ( season) COVID-19 Vaccine ( season) [facility] Start: 02-02-2023 Influenza vaccination Influenza Vacc ine [facility] Start: 2001 DTaP,Tdap and Td Vaccines (1 - Tdap) DTaP,Tdap and Td Vaccines (1 - Tdap) [facility] Start: 2000 Adult BMI Follow Up Plan Adult BMI Follow Up Plan [facility] End: 07-04-2025 Comprehensive metabolic 2000 panel - Serum or Plasma Comprehensive metabolic panel Lab Routine Hyperlipidemia, unspecified hyperlipidemia type 1 Occurrences starting 07/04/2024 until 07/04/2025 [facility] Work Phone: Comment on above: 1 Occurrences starti ng 07/04/2024 until 07/04/2025 End: 07-04-2025 Lipid 1996 panel - Serum or Plasma Lipid profile Lab Routine Hyperlipidemia, unspecified hyperlipidemia type 1 Occurrences starting 07/04/2024 until 07/04/2025 [facility] Comment on above: 1 Occurrences starti ng 07/04/2024 until 07/04/2025 Payers Date Payer Category Payer Commercial Managed C are - PPO [employer] [id number] 2021 Unknown [employer] M [facility] [id number] 2021-Present [phone] [address] [place] [address] [id number] 1982 Unknown [id number] 1982 Unknown [id number] 1982 Unknown [id number] 1982 Unknown [id number] 1959 Unknown [id number] Social History Date Type Detail Facility Start: 07-05-2022 [facility] tobacco [facility] Start: 07-05-2022 Tobacco use and exposure Smoke less tobacco non-user [facility] Start: 09-05-2023 End: 10-29-2024 Alcoholic beverage intake Ex-drinker (finding) [facility] Start: 06-26-2022 End: 10-29-2024 History of Social function [facility] Start: 06-26-2022 End: 10-29-2024 Social connection and isolation panel [facility] Do you belong to any clubs or organizations such as congregational groups, unions, fraternal or athletic groups, or school groups? No [facility] Are you now , , , , never or living with a partner? [facility] How often to you hav e a drink containing alcohol? Never [facility] How many standard dr inks containing alcohol do you have on a typical day? Patient does not drink [facility] How hard is it for y ou to pay for the very basics like food, housing, medical care, and heating Somewhat hard [facility] Do you feel stress - tense, restless, nervous, or anxious, or unable to sleep at night because your mind is troubled all the time - these days [OSQ] Only a little [facility] Start: 06-26-2022 Education 15 [facility] Start: 1980 Sex assigned at Not on file P [facility] Start: 01-07-2015 Sex Male (finding) [facility] How hard is it for y ou to pay for the very basics like food, housing, medical care, and heating Not very hard [facility] Clinical Notes 07-16-2023 to 10-29-2024 [...] (BMI) of 50.0 to 59.9 in adult ([facility]) -currently on phentermine and topiramate -advised patient [...] Testing No results found. Marybeth Bee DO., [facility] Office: [phone] documented in this encounter [facility] 07-04-2024 History of Presen t illness Narrative [...] (BMI) of 50.0 to 59.9 in adult ([facility]) -patient is aware he needs to have [...] Testing No results found. Marybeth Bee DO., [facility] Office: [phone] documented in this encounter [facility] 01-10-2024 Miscellaneous Notes Formattin g of this note might be different from the original. Junior called to request Meloxicam be sent to [facility] at this time, previously sent to [facility]. documented in this encounter [facility] 01-10-2024 Telephone encount er Note Junior called to request Meloxicam be sent to [facility] at this time, previously sent to [facility]. [facility] 10-16-2023 Miscellaneous Notes Formattin g of this note might be different from the original. ----- Message from Marybeth Bee DO sent at 09/05/2023 5:10 PM EDT ----- Weight recheck - Phentermine Lm on VM Lm on VM Sending letter documented in this encounter [facility] 10-16-2023 Telephone encount er Note ----- Message from Marybeth Bee DO sent at 09/05/2023 5:10 PM EDT ----- Weight recheck - Phentermine [facility] 10-16-2023 Telephone encount er Note Lm on VM [facility] 10-16-2023 Telephone encount er Note Lm on VM [facility] 10-16-2023 Telephone encount er Note Sending letter [facility] 09-05-2023 History of Presen t illness Narrative IM PROGRESS NOTE Patient - Junior Collins Age - 42 y.[facility]. [facility] 1980 [id number] ASSESSMENT & PLAN Video Visit via Real-time Synchronous Audiovisual Provider Location: [facility] INTERNAL MEDICINE - FAMILY MEDICINE [address] [facility] [address] Patient Location: Car Video Visit Consent Statement: [...] that there are some limitations compared to [id number] evaluations. The patient consented to the presence of additional virtual and/or in-person participants. We elected to proceed. 1. Class 3 severe obesity due to excess calories with serious comorbidity and body mass index (BMI) of 50.0 to 59.9 in adult ([facility]) -we discussed his goals of weight loss. His initial goals to get less than 400 lb. -he previously has received instruction on diet. -at the current time he is unable to participate regularly in exercise because of his orthopedic limitations -previously on Wegovy with prescription, and tolerated it well. We did discuss using a compounded formulation of semaglutide through [facility] in [place]. Cost estimate would be anywhere 100-200 dollars a month. He will investigate this, and look at his finances. -more affordable would be phentermine 37.5 mg daily. We reviewed the potential side effects both with anxiety, hypertension palpitations, dry mouth and sleeplessness. He is willing to try this as a start. -Rx for phentermine sent to [facility] 2. 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 Marybeth Bee DO., [facility] Office: [phone] documented in this encounter [facility] 07-16-2023 Miscellaneous Notes Formattin g of this note might be different from the original. ----- Message from Marybeth Bee DO sent at 12/28/2022 3:21 PM EDT ----- Weight recheck/lab/BP Called twice sending letter documented in this encounter [facility] 07-16-2023 Telephone encount er Note ----- Message from Marybeth Bee DO sent at 12/28/2022 3:21 PM EDT ----- Weight recheck/lab/BP [facility] 07-16-2023 Telephone encount er Note Called twice sending letter [facility] Evaluation note Diagnosis Degenerative lumbar spinal stenosis Spinal stenosis of lumbar region [facility] Diagnosis Essential hypertension Unspecified essential hypertension Anxiety Anxiety state, unspecified Gastroesophageal reflux disease, unspecified whether esophagitis present Degenerative lumbar spinal stenosis Spinal stenosis of lumbar region [facility] Diagnosis Essential hypertension- Primary Unspecified essential hypertension Class 3 severe obesity due to excess calories with serious comorbidity and body mass index (BMI) of 50.0 to 59.9 in adult ([facility]) JILLIAN (obstructive sleep apnea) Obstructive sleep apnea [...] (BMI) of 50.0 to 59.9 in adult ([facility]) [facility] (BMI) of 50.0 to 59.9 in adult ([facility])- Primary Essential hypertension Unspecified essential hypertension Degenerative [...] (BMI) of 50.0 to 59.9 in adult ([facility]) [facility] [...] (BMI) of 50.0 to 59.9 in adult ([facility]) Marybeth Bee, DO [address] [place] [address] Referral ID Status Reason Start Date Expiration Date V isits Requested Visits Authorized [id number] Pending Review 1 1 Additional Source Comments (unrecognized sect ion and content) No Status Records FoundNo Status Records FoundNo Status Records FoundNo Status Records Found INFORMATION SOURCE (unrecogn ized section and content) DATE CREATED AUTHOR 08/05/2021 [facility] DATE CREATED AUTHOR AUTHOR'S ORGANIZ ATION 09/07/2022 [facility] DATE CREATED AUTHOR AUTHOR'S ORGANIZ ATION 07/07/2024 [facility] DATE CREATED AUTHOR AUTHOR'S ORGANIZ ATION 11/01/2024 [...] Care Teams (unrecognized sec tion and content) Professor Of Practice Relationship Specialty Start Date End Date Marybeth Bee DO [address] [place] [address] PCP - General Internal Medicine 06/13/22 Professor Of Practice Relationship Specialty Start Date End Date Marybeth Bee DO [address] [place] [address] PCP - General Internal Medicine 06/13/22 Professor Of Practice Relationship Specialty Start Date End Date Marybeth Bee DO [address] [place] [address] PCP - General Internal Medicine 06/13/22 Professor Of Practice Relationship Specialty Start Date End Date Marybeth Bee DO [address] [place] [address] PCP - General Internal Medicine 06/13/22 Professor Of Practice Relationship Specialty Start Date End Date Marybeth Bee DO [address] [place] [address] PCP - General Internal Medicine 06/13/22 Professor Of Practice Relationship Specialty Start Date End Date Marybeth Bee DO [address] [place] [address] PCP - General Internal Medicine 06/13/22 Professor Of Practice Relationship Specialty Start Date End Date Marybeth Bee DO [address] [place] [address] PCP - General Internal Medicine 06/13/22 Professor Of Practice Relationship Specialty Start Date End Date Marybeth Bee DO [address] [place] [address] PCP - General Internal Medicine 06/13/22 Professor Of Practice Relationship Specialty Start Date End Date Marybeth Bee DO [address] [place] [address] PCP - General Internal Medicine 06/13/22 Professor Of Practice Relationship Specialty Start Date End Date Marybeth Bee DO [address] [place] [address] PCP - General Internal Medicine 06/13/22 Professor Of Practice Relationship Specialty Start Date End Date Marybeth Bee DO [address] [place] [address] PCP - General Internal Medicine 06/13/22 Professor Of Practice Relationship Specialty Start Date End Date Marybeth Bee DO [address] [place] [address] PCP - General Internal Medicine 06/13/22 Professor Of Practice Relationship Specialty Start Date End Date Marybeth Bee DO [address] [place] [address] PCP - General Internal Medicine 06/13/22 FOR [...] BE BASED ON THE PRIMARY CLINICAL RECORDS. [facility] [employer] [facility]. provides no warranty or guarantee of the accuracy or completeness of information in this document.
--- NOTE | 2024-11-09 08:33 | PM.HP ---
HPI H&P: HPI History of Present Illness Chief complaint: palpitations Narrative: Patient is a 44 y.o white male with past medical history of Morbid obesity, BMI 55, and Hypertension who presented to the ER last night after complaints of palpations waking him up from sleep. Patient recently started Adipex and Topamax for weight loss. Patient's HR was in the 130-140's. EKG in the ER was consistent with Afib with RVR. Patient has no prior history of this. ER findings: WBC's 8.6, Hb 14.6, INR 1.03, D-dimer 0.19, cr 1.00, Mag 1.8, K 4.5, Trop 5.6-7.1, ProBNP 109, HR 136, BP 122/61, 98% on Room air, normal D-dimer and Chest X-ray. Patient was given Lovenox, and IV dilt load followed by starting Dilt drip. He was admitted to the hospitalist service for further workup. He denies any prior issues with Afib, Mother with afib and father with bypass surgery. He had a cardiac stress test >10 years ago. By the time he arrived on the floor this morning he had converted to NSR. I have started Coreg 3.125mg BID, along with his home lisinopril/hctz. Dilt drip stopped. Opioid HPI Opioid Management Most Recent Pain and Opioid Data: Last Pain Scale 9 02/11/24, 17:13 Last Pain Assessment Today, 09:00 Last ORT Total Score 0 Today, 08:02 Last ORT Risk Category Low Risk Today, 08:02 Ur Phencyclidine Scrn, (NEGATIVE) Negative Today, 08:55 Review of Systems ROS Narrative ROS: a complete review of systems were reviewed with patient and are positive as below or listed in History of Chief Complaint. General: no fever, chills, night sweats Head: no headache, trauma, visual changes, nausea or vomiting Skin: no reported rashes, itching or sores Eyes: no blurriness of vision Ears: no reported hearing loss, vertigo, earache, or tinnitus Throat: no sore throat, hoarseness, swelling of neck, or tongue pain Heart: no chest pain, heart palipations Lungs: no shortness of breath or cough GI: no diarrhea or vomiting/nausea Urinary: no urinary urgency, frequency or pain Neuro: no numbness or tingling HEM: no bleeding issues or bruising ENDO: no thyroid problems Psych: no anxiety or depression PFSH PFS Medical History (Updated 11/09/24 @ 08:39 by Donya Montelongo DO) Morbid obesity with BMI of 50.0-59.9, adult ?E66.01 - Morbid (severe) obesity due to excess calories (ICD-10) ?Z68.43 - Body mass index [BMI] 50.0-59.9, adult (ICD-10) HTN (hypertension) ?I10 - Essential (primary) hypertension (ICD-10) Social History Highest level of school completed/degree received: Associate degree: occupational, technical, vocational program Little interest or pleasure in doing things: not at all Feeling down, depressed, or hopeless: not at all Meds Home Medications and Allergies Home Medications ?Medication ?Instructions ?Recorded ?Confirmed ?Type baclofen 10 mg tablet 10 mg PO TID 11/09/24 11/09/24 History famotidine 20 mg tablet 20 mg PO BID 11/09/24 11/09/24 History lisinopril 20 1 tab PO DAILY 11/09/24 11/09/24 History mg-hydrochlorothiazide 25 mg tablet phentermine 37.5 mg capsule 37.5 mg PO QAM 11/09/24 11/09/24 History sertraline 50 mg tablet 50 mg PO DAILY 11/09/24 11/09/24 History topiramate 25 mg tablet 25 mg PO .qhs 11/09/24 11/09/24 History Allergies Allergy/AdvReac Type Severity Reaction Status Date / Time No Known Drug Allergies Allergy Verified 02/11/24 16:52 Exam Narrative Exam Narrative: General: Patient is alert, and oriented to person, place and time with normal affect, proper hygiene, morbid obesity Skin: no visible rashes, or ulcers Head: atraumatic, acephalic Eyes: PERRLA, no nystagmus present, conjunctiva clear, no scleral icterus Ears: normal gross auditory acuity Nose: symmetric, no discharge, no maxillary or frontal sinus tenderness Mouth/Throat: no erythema, exudate, or tonsillar enlargement, normal dentition Neck: no masses palpated, normal thyroid, no JVD or audible carotid bruits Heart: Normal rate and rhythm, no murmurs/rubs/gallops Lungs: no audible wheezes, crackles and normal breath sounds all lung box Abdomen: Normal audible bowel sounds, no distension, No palpable masses, no organomegaly, no rebound/guarding/ or rigidity Musculoskeletal: no swelling bilateral lower extremities Vascular: Normal carotid, radial, femoral, posterior tibial, and dorsalis pedis pulses Lymph: no supraclavicular, axillary, or anterior/posterior cervical adenopathy Neuro: CN II-X grossly intact, normal sensation upper and lower extremities Constitutional Vital Signs, click to edit/add: Last Vital Signs Temp 98 F 11/09/24 08:02 Pulse 100 H 11/09/24 08:18 Resp 16 11/09/24 08:02 BP 141/103 H 11/09/24 08:02 Pulse Ox 98 11/09/24 08:02 O2 Del Method Room Air 11/09/24 08:02 Results Labs Labs: Short CBC 11/09/24 11/09/24 Range/Units 00:13 05:35 WBC 9.3 8.6 (4.0-11.0) 10^3/uL Hgb 14.1 14.6 (14.0-18.0) g/dL Hct 40.5 L 41.9 L (42.0-54.0) % Plt Count 229 209 (150-450) 10^3/uL BMP 11/09/24 11/09/24 00:13 05:35 Sodium 131 L 133 L Potassium 4.0 4.5 Chloride 94 L 97 L Carbon Dioxide 24.6 26.2 BUN 35.0 H 32.0 H Creatinine 1.20 1.00 Glucose 106 105 Calcium 9.5 9.4 Liver Function 11/09/24 Range/Units 05:35 Total Bilirubin 0.5 (0.2-1.0) mg/dL AST 20 (15-37) U/L ALT 34 (16-63) U/L Alkaline Phosphatase 80 (46-116) U/L Albumin 3.9 (3.4-5.0) g/dL Assessment and Plan Assessment and Plan (1) Atrial fibrillation with RVR: Assessment and Plan: dilt drip stopped after starting coreg 3.125mg BID. patient received lovenox so will start eliquis this evening. Echo ordered for tomorrow, patient on Telemetry, Ordered lipids, ha1c, TSH, all other labs are normal range, mag and trop, proBNP (2) HTN (hypertension): Assessment and Plan: resume home lisinopril/hctz and add coreg Qualifiers: Hypertension type: primary hypertension Qualified Code(s): I10 - Essential (primary) hypertension (3) Morbid obesity with BMI of 50.0-59.9, adult: Assessment and Plan: down 17 pounds but will need to hold the adipex. Plan Patient is a full code Patient is observation status and will most likely be discharged tomorrow after echo.
--- NOTE | 2024-11-09 08:37 | ECG_ITS ---
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 Measurements Intervals [place] Rate: 89 P: 46 IN: 162 QRS: 66 QRSD: 88 T: 41 QT: 350 QTc: 397 Interpretive Statements 1100 Sinus rhythm 8102 Low QRS voltage in chest leads Abnormal ECG Compared to ECG 11/09/2024 00:56:07 Low QRS voltage now present Atrial fibrillation no longer present ST (T wave) deviation no longer present Electronically Signed On 11-09-2024 20:02:38 EDT by ANTONIO RAMAN M.D.
[2024-11-09 09:15] LABS: Cannabinoid Screen Urine NEGATIVE (NEGATIVE); Cocaine Screen Urine NEGATIVE (NEGATIVE); Methamphetamines Screen Urine NEGATIVE (NEGATIVE); Opiate Screen Urine NEGATIVE (NEGATIVE); Phencyclidine Screen Urine NEGATIVE (NEGATIVE)
[2024-11-09 09:16] LABS: Amphetamine Screen Urine POSITIVE (NEGATIVE); Barbiturates Screen Urine NEGATIVE (NEGATIVE); Benzodiazepines Screen Urine NEGATIVE (NEGATIVE); Buprenorphine Screen Urine NEGATIVE (NEGATIVE); Methadone Screen Urine NEGATIVE (NEGATIVE); Oxycodone Screen Urine NEGATIVE (NEGATIVE); Tricyclic Antidepressant Urine NEGATIVE (NEGATIVE)
[2024-11-09 09:17] LABS: Estimated Average Glucose 97 mg/dL
[2024-11-09 09:26] LABS: Chol HDL Ratio 3.6; Cholesterol 157 mg/dL (<=200); HDL Cholesterol 44 mg/dL (40-60); LDL Cholesterol Calculated 83.6 mg/dL; Triglycerides 147 mg/dL (<=150); VLDL CHOLESTEROL 29.4 mg/dL
[2024-11-09 09:31] LABS: Thyroid Stimulating Hormone 2.547 uIU/mL (0.358-3.740)
[2024-11-09] MEDS: FAMOTIDINE 20 MG TABLET PO ×2 (11:31→20:40)
[2024-11-09] MEDS: CARVEDILOL 3.125 MG TABLET PO ×2 (12:21→20:40)
[2024-11-09] MEDS: LISINOPRIL 20 MG TABLET PO (12:21)
[2024-11-09] MEDS: HYDROCHLOROTHIAZIDE 25 MG TABLET PO (12:21)
[2024-11-09 12:30] LABS: Troponin I High Sensitivity 7.5 pg/mL (4.0-76.1)
--- OUTSIDE RECORDS SUMMARY | 2024-11-09 16:54 | XMS_ITS | Clinical Summary ---
Author Organization [facility] Address [address] [place] [address] Care Team Providers Care Quality Worker Name Role Phone Unavailable Primary Care Provider Unavailabl e Immunizations Immunization Administration Dates Next Due [id number] COVID-19 monovalen t vaccine, AD26, Craola 0.5 ML 08/12/2020 Social History Tobacco Use [...]
--- OUTSIDE RECORDS SUMMARY | 2024-11-09 16:54 | XMS_ITS | Encounter Summary ---
Author Organization [employer] Address [facility] [id number] [address] [place] [address] Care Team Providers Care Senior Systems Engineer Name Role Phone Rivera Simon DO Primary Care Provider [phone] Reason for Visit * Reason Comments Med Refill Encounter Details Date Type Department Care Team (Late st Contact Info) Description 05/15/2022 Refill [facility] - Family Medicine [address] [place] [address] Rivera Simon DO [address] [place] [address] Gastroesophageal reflux disease, unspecified whether esophagitis present [...] Primary documented in this encounter Care Teams Senior Systems Engineer Relationship Specialty Start Date End Date Rivera Simon DO [address] [place] [address] PCP - General Internal Medicine 06/13/22 documented as of this encounter
--- OUTSIDE RECORDS SUMMARY | 2024-11-09 16:54 | XMS_ITS | Encounter Summary ---
Author Organization [employer] Address [facility] [place][id number] [address] [place] [address] Care Team Providers Care Machine Operator Replanter Name Role Phone Rivera Simon DO Primary Care Provider [phone] Reason for Visit * Reason Comments Med Refill Encounter Details Date Type Department Care Team (Late st Contact Info) Description 07/25/2023 Refill [facility] - [facility] [address] [place] [address] Rivera Simon DO [address] [place] [address] Anxiety Social History Tobacco Use Types Packs/Day [...] week 06/26/2022 How often do you attend scientology or buddhist serv ices? Never 06/26/2022 Do you belong to any clubs o r organizations such as scientology groups, unions, fraternal or athletic groups, or [...] Answer Date Recorded Total Score 0 01/22/2023 [facility] [place] of Occupat ional Health - Occupational Stress [...] as of this encounter Care Teams Machine Operator Replanter Relationship Specialty Start Date End Date Rivera Simon DO [address] [place] [address] PCP - General Internal Medicine 06/13/22 documented as of this encounter
--- OUTSIDE RECORDS SUMMARY | 2024-11-09 16:54 | XMS_ITS | Encounter Summary ---
Author Organization [employer] s tem Address [facility] [place][id number] [address] [place] [address] Care Team Providers Care Environmental Health And Safety Intern Name Role Phone Rivera Simon DO Primary Care Provider [phone] Encounter Details Date Type Department Care Team (Late st Contact Info) Description 06/13/2022 Orders Only [facility] - [facility] [address] [place] [phone] Rivera Simon DO [address] [place] [address] Essential hypertension (Primary Dx); Hyperlipidemia, unspecified hyperlipidemia type; Class 3 severe obesity due to excess calories with serious comorbidity and body mass index (BMI) of 50.0 to 59.9 in adult ([facility]) Social History Tobacco Use Types Packs/Day Years [...] ORDERABLES Final Resul t Performing Organization Address [facility] Co de Phone Number MANUALLY TRANSCRIBED RESULTS [...] (BMI) of 50.0 to 59.9 in adult ([facility]) documented in this encounter Care Teams Environmental Health And Safety Intern Relationship Specialty Start Date End Date Rivera Simon DO [address] [place] [address] PCP - General Internal Medicine 06/13/22 documented as of this encounter
--- OUTSIDE RECORDS SUMMARY | 2024-11-09 16:54 | XMS_ITS | Encounter Summary ---
Author Organization [employer] Address [facility] [id number] [address] [place] [address] Care Team Providers Care Poultry Picker Name Role Phone Rivera Simon DO Primary Care Provider [phone] Encounter Details Date Type Department Care Team (Late st Contact Info) Description 09/29/2024 Orders Only [facility] - Family Medicine [address] [place] [phone] Rivera Simon DO [address] [place] [address] Degenerative lumbar spinal stenosis (Primary Dx) Social [...] week 06/26/2022 How often do you attend hindu or gnosticist serv ices? Never 06/26/2022 Do you belong to any clubs o r organizations such as hindu groups, unions, fraternal or athletic groups, or [...] Answer Date Recorded Total Score 0 07/04/2024 [facility] [place] of Occupat ional Health - Occupational Stress [...] documented as of this encounter Care Teams Poultry Picker Relationship Specialty Start Date End Date Rivera Simon DO [address] [place] [address] PCP - General Internal Medicine 06/13/22 documented as of this encounter
--- OUTSIDE RECORDS SUMMARY | 2024-11-09 16:54 | XMS_ITS | Encounter Summary ---
Author Organization [employer] Address [facility] [id number] [address] [place] [address] Care Team Providers Care Engineering Director Name Role Phone Rivera Simon DO Primary Care Provider [phone] Reason for Visit * Reason Comments Med Refill Encounter Details Date Type Department Care Team (Late st Contact Info) Description 06/12/2022 Refill [facility] - Family Medicine [address] [place] [address] Rivera Simon DO [address] [place] [address] Social History Tobacco Use Types Packs/Day Years [...] on filedocumented in this encounter Care Teams Engineering Director Relationship Specialty Start Date End Date Rivera Simon DO [address] [place] [address] PCP - General Internal Medicine 06/13/22 documented as of this encounter
--- OUTSIDE RECORDS SUMMARY | 2024-11-09 16:54 | XMS_ITS | Encounter Summary ---
Author [facility] Address [facility] [place]-[id number] [address] [place] [address] Care Team Providers Care Network Technical Analyst Name Role Phone Rivera Simon DO Primary Care Provider [phone] Reason for Referral * Medication Prior Authorization - Closed Specialty Diagnoses / Procedures Referred By Contac t Referred To Contact Diagnoses Class 3 severe obesity due to excess calories with serious comorbidity and body mass index (BMI) of 50.0 to 59.9 in adult ([facility] Rivera Simon DO [address] [place] [address] Phone: tel: fax: Referral ID Status Reason Start Date Expiration Date Visits Re quested Visits Authorized [id number] Closed 1 1 Encounter Details Date Type Department Care Team (Late st Contact Info) Description 07/14/2024 Orders Only [facility] - [facility] [address] [place] [address] Rivera Simon DO [address] [place], [place] [phone] Class 3 severe obesity due to excess calories with serious comorbidity and body mass index (BMI) of 50.0 to 59.9 in adult ([facility] Social History Tobacco Use Types Packs/Day Years [...] week 06/26/2022 How often do you attend anglican or mosque serv ices? Never 06/26/2022 Do you belong to any clubs o r organizations such as anglican groups, unions, fraternal [...] Answer Date Recorded Total Score 0 07/04/2024 [facility] of Occupat ional [facility] - Occupational Stress Questionnaire Answer Date Recorded [...] as of this encounter Care Teams Network Technical Analyst Relationship Specialty Start Date End Date Rivera Simon DO [address] [place] [address] PCP - General Internal Medicine 06/13/22 documented as of this encounter
--- OUTSIDE RECORDS SUMMARY | 2024-11-09 16:54 | XMS_ITS | Encounter Summary ---
Author Organization [employer] Address [facility] [place]-[id number] [address] [place] [address] Care Team Providers Care Regional Facilities Manager Name Role Phone Rivera Simon DO Primary Care Provider [phone] Encounter Details Date Type Department Care Team (Late st Contact Info) Description 12/16/2022 Orders Only [facility] - Family Medicine [address] [place] [phone] Rivera Simon DO [address] [place] [address] Anxiety Social History Tobacco Use Types Packs/Day [...] How often do you attend shinto or synagogue serv ices? Never 06/26/2022 Do you belong [...] Answer Date Recorded Total Score 7 06/26/2022 [facility] of Occupat ional Health - [...] documented as of this encounter Care Teams Regional Facilities Manager Relationship Specialty Start Date End Date Rivera Simon DO [address] [place] [address] PCP - General Internal Medicine 06/13/22 documented as of this encounter
--- OUTSIDE RECORDS SUMMARY | 2024-11-09 16:54 | XMS_ITS | Encounter Summary ---
Author Organization [employer] Sys [employer] Address [facility]-[id number] [address] [place] [address] Care Team Providers Care Tube Coremaker Name Role Phone Rivera Simon Primary Care Provider Encounter Details Date Type Department Care Team (Late st Contact Info) Description 07/14/2022 Orders Only [facility] - Family Medicine [address] [place] [address] External, Scanning Provider Social History Tobacco Use [...] week 06/26/2022 How often do you attend catholic or congregational serv ices? Never 06/26/2022 Do you belong to any clubs o r organizations such as catholic groups, unions, fraternal or athletic groups, or [...] Answer Date Recorded Total Score 7 06/26/2022 [facility] of Occupat ional Health - Occupational [...] Recorded Do you need help finding a [facility] career center and/or a training [...] Multiple labs (07/14/2022) us Scanning Provider External [facility] Final Result MANUALLY TRANSCRIBED RESULTS documented in this encounter Visit Diagnoses Not on filedocumented in this encounter Additional Health Concerns Assessment Noted Time PHQ-9 Depression Total Score: 7 06/26/19 6:30 PM EST documented as of this encounter Care Teams Tube Coremaker Relationship Specialty Start Date End Date Rivera Simon DO [address] [place] [address] PCP - General Internal Medicine 06/13/22 documented as of this encounter
--- OUTSIDE RECORDS SUMMARY | 2024-11-09 16:54 | XMS_ITS | Encounter Summary ---
Author Organization [employer] Address [facility] [place]-[id number] [address] [place] [address] Care Team Providers Care Materials Analyst Name Role Phone Rivera Simon Primary Care Provider [phone] Encounter Details Date Type Department Care Team (Late st Contact Info) Description 01/30/2023 Orders Only [facility] - Family Medicine [address] [place] [address] External, Scanning Provider Social History Tobacco Use [...] week 06/26/2022 How often do you attend moravian or evangelical serv ices? Never 06/26/2022 Do you belong to any clubs o r organizations such as moravian groups, unions, fraternal or athletic groups, or [...] Answer Date Recorded Total Score 0 01/22/2023 [facility] of Occupat ional Health - Occupational [...] Recorded Do you need help finding a [facility] career center and/or a training program? No [...] documented as of this encounter Care Teams Materials Analyst Relationship Specialty Start Date End Date Rivera Simon DO [address] [place] [address] PCP - General Internal Medicine 06/13/22 documented as of this encounter
--- OUTSIDE RECORDS SUMMARY | 2024-11-09 16:54 | XMS_ITS | Encounter Summary ---
Author Organization [employer] Address [facility] [place]-[id number] [address] [place] [address] Care Team Providers Care Counseling Center Director Name Role Phone Rivera Simon DO Primary Care Provider [phone] Reason for Visit * Reason Comments Med Refill Encounter Details Date Type Department Care Team (Late st Contact Info) Description 10/05/2023 Refill [facility] - Family Medicine [address] [place] [address] Rivera Simon DO [address] [place] [address] Class 3 severe obesity due to excess calories with serious comorbidity and body mass index (BMI) of 50.0 to 59.9 in adult ([facility]) Social History Tobacco Use Types [...] week 06/26/2022 How often do you attend sikh or christianity serv ices? Never 06/26/2022 Do you belong to any clubs o r organizations such as sikh groups, unions, fraternal or athletic groups, or [...] Answer Date Recorded Total Score 0 01/22/2023 [facility] of Occupat ional [...] Recorded Do you need help finding a [facility] career center and/or a [...] documented as of this encounter Care Teams Counseling Center Director Relationship Specialty Start Date End Date Rivera Simon DO [address] [place] [address] PCP - General Internal Medicine 06/13/22 documented as of this encounter
--- OUTSIDE RECORDS SUMMARY | 2024-11-09 16:54 | XMS_ITS | Encounter Summary ---
Author Organization [facility] [employer] Address [facility] [id number] [address] [place] [address] Care Team Providers Care Utility Worker Film Processing Name Role Phone Rivera Simon DO Primary Care Provider [phone] Reason for Visit * Reason Onset Date Comments Labs Only 06/13/2022 Encounter Details Date Type Department Care Team (Late st Contact Info) Description 06/13/2022 [facility] [address] [place] [address] Rivera Simon DO [address] [place] [address] Labs Only Social History Tobacco Use Types [...] and would like lab orders sent to [facility] to have done documented in this encounter Plan of Treatment Not on file documented as of this encounter Visit Diagnoses Not on filedocumented in this encounter Care Teams Utility Worker Film Processing Relationship Specialty Start Date End Date Rivera Simon DO [address] [place] [address] PCP - General Internal Medicine 06/13/22 documented as of this encounter
--- OUTSIDE RECORDS SUMMARY | 2024-11-09 16:54 | XMS_ITS | Encounter Summary ---
Author Organization [employer] Address [facility] [place]-[id number] [address] [place] [address] Care Team Providers Care Senior International Tax Manager Name Role Phone Rivera Simon Primary Care Provider [phone] Encounter Details Date Type Department Care Team (Late st Contact Info) Description 07/07/2022 Orders Only [facility] - Family Medicine [address] [place] [phone] Pat Cottrell CMA Hyperlipidemia, unspecified hyperlipidemia type [...] week 06/26/2022 How often do you attend judaism or holiness serv ices? Never 06/26/2022 Do you belong to any clubs o r organizations such as judaism groups, unions, fraternal or athletic groups, or [...] Answer Date Recorded Total Score 7 06/26/2022 [facility] of Occupat ional Health - Occupational [...] Recorded Do you need help finding a [facility] career center and/or a training program? No [...] documented as of this encounter Care Teams Senior International Tax Manager Relationship Specialty Start Date End Date Rivera Simon DO [facility] [address] [place] [id number] PCP - General Internal Medicine 06/13/22 documented as of this encounter
--- OUTSIDE RECORDS SUMMARY | 2024-11-09 16:54 | XMS_ITS | Encounter Summary ---
Author Organization [employer] Address [facility] [place]-[id number] [address] [place] [address] Care Team Providers Care Installation Superintendent Name Role Phone Rivera Simon DO Primary Care Provider [phone] Encounter Details Date Type Department Care Team (Late st Contact Info) Description 07/24/2022 Orders Only [facility] - Family Medicine [address] [place] [phone] Rivera Simon DO [address] [place] [address] IFG (impaired fasting glucose) (Primary Dx); Class 3 severe obesity due to excess calories with serious comorbidity and body mass index (BMI) of 50.0 to 59.9 in adult ([facility]) Social History Tobacco Use Types Packs/Day Years [...] week 06/26/2022 How often do you attend hoahaoism or sikh serv ices? Never 06/26/2022 Do you belong to any clubs o r organizations such as hoahaoism groups, unions, fraternal or athletic groups, or [...] Answer Date Recorded Total Score 7 06/26/2022 [facility] [place] of Occupat ional Health - Occupational Stress [...] documented as of this encounter Care Teams Installation Superintendent Relationship Specialty Start Date End Date Rivera Simon DO [address] [place] [address] PCP - General Internal Medicine 06/13/22 documented as of this encounter
--- OUTSIDE RECORDS SUMMARY | 2024-11-09 16:54 | XMS_ITS | Clinical Summary ---
Author Organization Generates tem Address [id number] [address] [place] [address] Care Team Providers Care Tag Maker Name Role Phone Rivera Simon Primary Care Provider [phone] Allergies No known active allergies Medications lisinopril-hydro [...] (BMI) of 50.0 to 59.9 in adult ([facility]) Take 1 tablet (25 mg total) by mouth nightly. 30 tablet 2 5 Active phentermine 37.5 MG capsuleIndicatio ns:Class 3 severe obesity due to excess calories with serious comorbidity and body mass index (BMI) of 50.0 to 59.9 in adult ([facility]) Take 1 capsule (37.5 mg total) by [...] Medicine - Family Medicine [address] [place] [address] Rivear Simon DO Degenerative lumbar spinal stenosis (Primary Dx); Dermatitis; Class 3 severe obesity due to excess calories with serious comorbidity and body mass index (BMI) of 50.0 to 59.9 in adult ([facility]) 10/28/2024 Travel 09/29/2024 Orders Only [facility] Internal Medicine - Family Medicine [address] [place] [address] Rivera Simon DO Degenerative lumbar spinal stenosis [...] week 06/26/2022 How often do you attend evangelical or restorationism serv ices? Never 06/26/2022 Do you belong to any clubs o r organizations such as evangelical groups, unions, fraternal or athletic groups, or [...] Answer Date Recorded Total Score 0 10/29/2024 [facility] [place] of Occupat ional Health - Occupational Stress [...] Recorded Do you need help finding a [facility] career center and/or a training program? [...] on file Insurance [employer] Care Teams Tag Maker Relationship Specialty Start Date End Date Rivera Simon DO [address] [place] [address] PCP - General Internal Medicine 06/13/22
--- OUTSIDE RECORDS SUMMARY | 2024-11-09 16:54 | XMS_ITS | Encounter Summary ---
Author Organization [employer] tem Address [id number] [address] [place] [address] Care Team Providers Care Massage Therapy Instructor Name Role Phone Rivera Simon DO Primary Care Provider [phone] Encounter Details Date Type Department Care Team (Late st Contact Info) Description 07/08/2024 Orders Only [facility] Internal Medicine - Family Medicine [address] [place] [id number] Rivera Simon DO [address] [place] [address] Class 3 severe obesity due to excess calories with serious comorbidity and body mass index (BMI) of 50.0 to 59.9 in adult ([facility]) (Primary Dx) Social History Tobacco Use [...] week 06/26/2022 How often do you attend spiritism or jehovah's witness serv ices? Never 06/26/2022 Do you belong to any clubs o r organizations such as spiritism groups, unions, fraternal or athletic groups, or [...] Answer Date Recorded Total Score 0 07/04/2024 [facility] of Occupat ional Health - Occupational [...] Recorded Do you need help finding a [facility] career center and/or a training program? [...] documented as of this encounter Care Teams Massage Therapy Instructor Relationship Specialty Start Date End Date Rivera Simon DO [address] [place] [id number] PCP - General Internal Medicine 06/13/22 documented as of this encounter
--- OUTSIDE RECORDS SUMMARY | 2024-11-09 16:55 | XMS_ITS | CCD ---
Author Organization [facility] Care Team Providers Care Map Mounter Name Role Phone DR MARYBETH BEE Attending Unavailable ROHIT, DR RUEDA Consulting Unavailable ROHIT, DR RUEDA Primary Care Unavailable ROHIT, DR RUEDA Admitting Unavailable Marybeth Bee DO Primary Care Provider MARYBETH BEE Referring MARYBETH Taylor Primary Care Unavailable Marybeth Bee DO Primary Care Provider MARYBETH BEE Attending MARYBETH Taylor Referring Unavailable [...] (BMI) of 50.0 to 59.9 in adult [place] Take 1 capsule (37.5 mg total) by mouth every morning. 30 capsule 07/14/2024 Active Start: 07-08-2024 End: 07-09-2024 take 50-59.9 capsules by mouth once daily in the morning phentermine 37.5 MG capsule Indications: Class 3 severe obesity due to excess calories with serious comorbidity and body mass index (BMI) of 50.0 to 59.9 in adult [place] TAKE 1 CAPSULE BY MOUTH EVERY MORNING 30 capsule 07/09/2024 Active Start: 09-05-2023 take 50-59.9 tablets by mouth once daily before breakfast phentermine (ADIPEX-P) 37.5 mg tablet Indications: Class 3 severe obesity due to excess calories with serious comorbidity and body mass index (BMI) of 50.0 to 59.9 in adult [place] Take 1 tablet (37.5 [...] (BMI) of 50.0 to 59.9 in adult ([facility] Take 1 tablet (25 [...] (BMI) of 50.0 to 59.9 in adult ([facility] Inject 0.5 mL (0.5 [...] (BMI) of 50.0 to 59.9 in adult ([facility] Inject 0.75 mL (2.4 mg total) under the skin every 7 days. 9 mL 1 12/28/2022 09/05/2023 Discontinued (Cost of medication) Start: 12-28-2022 semaglutide, w eight loss, (WEGOVY) 2.4 mg/0.75 mL pen injector Indications: Class 3 severe obesity due to excess calories with serious comorbidity and body mass index (BMI) of 50.0 to 59.9 in adult ([facility] Inject 0.75 mL (2.4 [...] 07-04-2024 Albumin [Mass/Vol] 4.4 g/dL Normal 3.2-5.3 [facility] Comment on above: Performed By: #### Guy ALVAREZ 50679-5 #### [facility] ([id number]) [address], [address] [place] [address] ALP [Catalytic activity/Vol] 65 U/L Normal 39-130 [facility] Comment on above: Performed By: #### Guy ALVAREZ 42735-8 #### [facility] ([id number]) [address], [address] [place] [address] ALT [Catalytic activity/Vol] 26 U/L Normal 0-40 [facility] Comment on above: Performed By: #### Guy ALVAREZ, 66230-7 #### [facility] ([id number]) [address], [address] [place] [address] Anion gap [Moles/Vol] 8 mmol/L Normal 5-15 [facility] Comment on above: Performed By: #### Guy ALVAREZ 75523-3 #### [facility] ([id number]) [address], [address] [place] [address] AST [Catalytic activity/Vol] 18 U/L Normal 0-41 [facility] Comment on above: Performed By: #### Guy ALVAREZ 97957-2 #### [facility] ([id number]) [address], [address] [place] [address] Bilirubin [Mass/Vol] 0.6 mg/dL Normal 0.3-1.2 [facility] Comment on above: Performed By: #### Guy ALVAREZ, 11720-1 #### [facility] ([id number]) [address], [address] [place] [address] Calcium [Mass/Vol] 9.2 mg/dL Normal 8.5-10.5 [facility] Comment on above: Performed By: #### Guy ALVAREZ, 93097-6 #### [facility] ([id number]) [address] [place] [address] Chloride [Moles/Vol] 100 mmol/L Normal 98-109 [facility] Comment on above: Performed By: #### Guy ALVAREZ, 99693-8 #### [facility] ([id number]) [address], [address] [place] [address] CO2 [Moles/Vol] 30 mmol/L Normal 22-32 [facility] Comment on above: Performed By: #### Guy ALVAREZ, 14030-9 #### [facility] ([id number]) [address], [facility] [address] [place] [address] Creatinine [Mass/Vol] 0.86 mg/dL Normal 0.60-1.30 [facility] Comment on above: Result Comment: METH OD TRACEABLE TO IDMS STANDARD Performed By: #### Guy ALVAREZ, 99766-0 #### [facility] ([id number]) [address] [place] [address] eGFR (CKD-EPI) NON-RACE DEPENDENT >90 Normal >59 [facility] Comment on above: Result Comment: Reported eGFR is based on the CKD-EPI 2020 equation that does not use a race coefficient. Performed By: #### Guy ALVAREZ, 05154-7 #### [facility] ([id number]) [address], [address] [place] [address] Glucose [Mass/Vol] 95 mg/dL Normal 65-99 [facility] Comment on above: Performed By: #### Guy ALVAREZ, 97453-6 #### [facility] ([id number]) [address], [address] [place] [address] Potassium [Moles/Vol] 4.3 mmol/L Normal 3.5-5.0 [facility] Comment on above: Performed By: #### Guy ALVAREZ, 65852-2 #### [facility] ([id number]) [address], [address] [place] [address] Protein [Mass/Vol] 7.4 g/dL Normal 6.0-8.0 [facility] Comment on above: Performed By: #### Guy ALVAREZ, 68592-4 #### [facility] ([id number]) [address], [address] [place] [address] Sodium [Moles/Vol] 138 mmol/L Normal 134-146 [facility] Comment on above: Performed By: #### Guy ALVAREZ, 95619-5 #### [facility] ([id number]) [address], [address] [place] [address] Urea nitrogen [Mass/Vol] 21 mg/dL Normal 5-23 [facility] Comment on above: Performed By: #### Guy ALVAREZ, 93488-7 #### [facility] ([id number]) [address] [place] [address] Lipid 1996 panelon 5 Cholesterol [Mass/Vol] 182 mg/dL Normal 150-200 [facility] Comment on above: Performed By: #### Guy ALVAREZ, 03314-6 #### [facility] ([id number]) [address], [address] [place] [address] Cholesterol in HDL [Mass/Vol] 43 mg/dL Normal >39 [facility] Comment on above: Result Comment: HDL <40 mg/dL - High Risk HDL > or = 40mg/dL- Desirable HDL >60 mg/dL - Negative Risk Performed By: #### Guy ALVAREZ, 44377-3 #### [facility] ([id number]) [address], [address] [place] [address] Cholesterol in LDL [Mass/Vol] 119 mg/dL Normal <130 [facility] Comment on above: Result Comment: LDL <100 mg/dL - Desirable LDL >160 mg/dL - High Risk Performed By: #### Guy ALVAREZ, 73350-8 #### [facility] ([id number]) [address], [address] [place] [address] Cholesterol in VLDL [Mass/Vol] 20 mg/dL Normal 0-30 [facility] Comment on above: Performed By: #### Guy ALVAREZ, 01216-4 #### [facility] ([id number]) [address], [address] [place] [address] CHOLESTEROL:HDL 4.2 Normal 1.0-5.0 [facility] Comment on above: Performed By: #### Guy ALVAREZ, 72328-4 #### [facility] ([id number]) [address] [place] [address] Triglyceride [Mass/Vol] 102 mg/dL Normal 27-150 [facility] Comment on above: Performed By: #### Guy ALVAREZ, 04262-1 #### [facility] ([id number]) [address] [facility] [facility] [address] [place] [address] LIPID PROFILEon 06-27-2022 CHOL-HDL RATIO NORM SEE BELOW Normal [facility] Comment on above: Result Comment: 3.3 - 4.4 LOW RISK 4.4 - 7.1 AVERAGE RISK 7.1 - 11.0 MODERATE RISK >11.0 HIGH RISK Performed By: #### C MP, LIPID #### [facility] [address] [place] [address] Dr. Kimmie Palacios Cholesterol [Mass/Vol] 146 mg/dL Normal <=200 [facility] Comment on above: Performed By: #### C MP, LIPID #### [facility] [address] [address] [address] Kimmie Palacios Cholesterol in HDL [Mass/Vol] 45 mg/dL Normal 40-60 [facility] Comment on above: Performed By: #### C MP, LIPID #### [facility] [address] [place] [address] Dr. Kimmie Palacios Cholesterol in LDL [Mass/Vol] 79.8 mg/dL Normal [facility] Comment on above: Performed By: #### C MP, LIPID #### [facility] [address] [place] [address] Dr. Kimmie Palacios Cholesterol.total/C holesterol in HDL [Mass ratio] 3.2 {ratio} Normal [facility] Comment on above: Performed By: #### C MP, LIPID #### [facility] [address] [place] [address] Dr. Kimmie Palacios HDL NORMAL > or = 60 mg/dl - LOW CARDIOVASCULAR RISK <40 mg/dl - HIGH CARDIOVASCULAR RISK Normal [facility] Comment on above: Performed By: #### C MP, LIPID #### [facility] [address] [place] [address] Dr. Kimmie Palacios LDL CALC NORMAL SEE BELOW Normal [facility] Comment on above: Result Comment: <100 mg/dl OPTIMAL 100 - 129 mg/dl NEAR OR ABOVE OPTIMAL 130 - 159 mg/dl BORDERLINE HIGH 160 - 189 mg/dl HIGH >190 mg/dl VERY HIGH Performed By: #### C MP, LIPID #### [facility] [address] [place] [address] Dr. Kimmie Palacios Triglyceride [Mass/Vol] 106 mg/dL Normal <=150 [facility] Comment on above: Performed By: #### C MP, LIPID #### [facility] [address] [place] [address] Dr. Kimmie Palacios VLDL CALC 21.2 mg/dL Normal [facility] Comment on above: Performed By: #### C MP, LIPID #### [facility] [address] [place] [address] Dr. Kimmie Palacios PROF 14(COMP METB)on 023 Albumin [Mass/Vol] 3.2 g/dL Critically low 3.4-5.0 [facility] Comment on above: Performed By: #### C MP, LIPID #### [facility] [address] [place] [address] Dr. Kimmei Palacios Albumin/Globulin [Mass ratio] 0.6 {ratio} Normal [facility] Comment on above: Performed By: #### C MP, LIPID #### [facility] [address] [place] [address] Dr. Kimmie Palacios ALP [Catalytic activity/Vol] 79 U/L Normal 46-116 [facility] Comment on above: Performed By: #### C MP, LIPID #### [facility] [address] [place] [address] Dr. Kimmie Palacios ALT [Catalytic activity/Vol] 24 U/L Normal 16-63 [facility] Comment on above: Performed By: #### C MP, LIPID #### [facility] [address] [place] [address] Dr. Kimmie Palacios Anion gap [Moles/Vol] 12.8 mmol/L Normal [facility] Comment on above: Performed By: #### C MP, LIPID #### [facility] [address] [place] [address] Dr. Kimmie Palacios AST [Catalytic activity/Vol] 16 U/L Normal 15-37 [facility] Comment on above: Performed By: #### C MP, LIPID #### [facility] [address] [place] [address] Dr. Kimmie Palacios Bilirubin [Mass/Vol] 0.3 mg/dL Normal 0.2-1.0 [facility] Comment on above: Performed By: #### C MP, LIPID #### [facility] [address] [address] [address] Kimmie Palacios Calcium [Mass/Vol] 9.1 mg/dL Normal 8.5-10.1 [facility] Comment on above: Performed By: #### C MP, LIPID #### [facility] [address] [address] [address] Kimmie Palacios Chloride [Moles/Vol] 100 mmol/L Normal 98-107 [facility] Comment on above: Performed By: #### C MP, LIPID #### [facility] [address] [place] [address] Dr. Kimmie Palacios CO2 [Moles/Vol] 29.3 mmol/L Normal 21.0-32.0 [facility] Comment on above: Performed By: #### C MP, LIPID #### [facility] [address] [place] [address] Dr. Kimmie Palacios Creatinine [Mass/Vol] 0.97 mg/dL Normal 0.70-1.30 [facility] Comment on above: Performed By: #### C MP, LIPID #### [facility] [address] [place] [address] Dr. Kimmie Palacios EGFR-AF ITALIAN >60 Normal >=60 [facility] Comment on above: Performed By: #### C MP, LIPID #### [facility] [address] [place] [address] Dr. Kimmie Palacios EGFR-NON AF ITALIAN >60 Normal >=60 [facility] Comment on above: Performed By: #### C MP, LIPID #### [facility] [address] [place] [address] Dr. Kimmie Palacios Globulin (S) [Mass/Vol] 5.0 g/dL Normal [facility] Comment on above: Performed By: #### C MP, LIPID #### [facility] [address] [place] [address] Dr. Kimmie Palacios Glucose [Mass/Vol] 102 mg/dL Normal 74-106 [facility] Comment on above: Performed By: #### C MP, LIPID #### [facility] [address] [address] [address] Kimmie Palacios Potassium [Moles/Vol] 5.1 mmol/L Normal 3.5-5.1 [facility] Comment on above: Performed By: #### C MP, LIPID #### [facility] [address] [place] [address] Dr. Kimmie Palacios Protein [Mass/Vol] 8.2 g/dL Normal 6.4-8.2 [facility] Comment on above: Performed By: #### C MP, LIPID #### [facility] [address] [address] [address] Kimmie Palacios Sodium [Moles/Vol] 137 mmol/L Normal 136-145 [facility] Comment on above: Performed By: #### C MP, LIPID #### [facility] [address] [place] [address] Dr. Kimmie Palacios Urea nitrogen [Mass/Vol] 20.0 mg/dL Critically high 7.0-18.0 [facility] Comment on above: Performed By: #### C MP, LIPID #### [facility] [address] [address] [address] Kimmie Palacios Urea nitrogen/Creatinine [Mass ratio] 20.6 mg/mg Normal [facility] Comment on above: Performed By: #### C MP, LIPID #### [facility] [address] [place] [address] Dr. Kimmie Palacios COMPREHENSIVE METABOLIC PANE Salbador 08-05-2021 Albumin [Mass/Vol] 4.1 g/dL Normal 3.6-5.1 [facility] Comment on above: Performed By: #### 7 600, 87891 #### [facility] [address], [address] [place] [phone] Wan Support Specialist: Vicente Ahmadi MD Albumin/Globulin [Mass ratio] 1.3 {ratio} Normal 1.0-2.5 [facility] Comment on above: Performed By: #### 7 600, 98917 #### [facility] [address], [address] [place] [phone] Wan Support Specialist: Vicente Ahmadi MD ALP [Catalytic activity/Vol] 67 U/L Normal 36-130 [facility] Comment on above: Performed By: #### 7 600, 97697 #### [facility] of [address] [address] Wan Support Specialist: Vicente Ahmadi MD ALT [Catalytic activity/Vol] 21 U/L Normal 9-46 [facility] Comment on above: Performed By: #### 7 600, 16174 #### [facility] [address] [address] Wan Support Specialist: Vicente Ahmadi MD AST [Catalytic activity/Vol] 16 U/L Normal 10-40 [facility] Comment on above: Performed By: #### 7 600, 58328 #### [facility] [address] [address] Wan Support Specialist: Vicente Ahmadi MD Bilirubin [Mass/Vol] 0.4 mg/dL Normal 0.2-1.2 [facility] Comment on above: Performed By: #### 7 600, 30711 #### [facility] [address] [address] Wan Support Specialist: Vicente Ahmadi MD BUN/CREATININE RATIO NOT APPLICABLE Normal 6-22 [facility] Comment on above: Performed By: #### 7 600, 20995 #### [facility] [address] [address] Wan Support Specialist: Vicente Ahmadi MD Calcium [Mass/Vol] 9.1 mg/dL Normal 8.6-10.3 [facility] Comment on above: Performed By: #### 7 600, 26147 #### [facility] [address] [address] Wan Support Specialist: Vicente Ahmadi MD Chloride [Moles/Vol] 101 mmol/L Normal 98-110 [facility] Comment on above: Performed By: #### 7 600, 03384 #### [facility] [address] [address] Wan Support Specialist: Vicente Ahmadi MD CO2 [Moles/Vol] 27 mmol/L Normal 20-32 [facility] Comment on above: Performed By: #### 7 600, 80170 #### [facility] [address] [place] [address] Wan Support Specialist: Vicente Ahmadi MD Creatinine [Mass/Vol] 0.86 mg/dL Normal 0.60-1.35 [facility] Comment on above: Performed By: #### 7 600, 69340 #### [facility] [address] [place] [address] Wan Support Specialist: Vicente Ahmadi MD eGFR NON-AFR. ITALIAN 110 mL/min/1.73m2 Normal > OR = 60 [facility] Comment on above: Performed By: #### 7 600, 45858 #### [facility] [address] [place] [address] Wan Support Specialist: Vicente Ahmadi MD GFR/1.73 sq M.predicted among blacks MDRD (S/P/Bld) [Vol rate/Area] 127 mL/min/{1.73_m2} Normal > OR = 60 [facility] Comment on above: Performed By: #### 7 600, 15674 #### [facility] [address] [place] [address] Wan Support Specialist: Vicente Ahmadi MD Globulin (S) [Mass/Vol] 3.1 g/dL Normal 1.9-3.7 [facility] Comment on above: Performed By: #### 7 600, 52981 #### [facility] [place] [address] Wan Support Specialist: Vicente Ahmadi MD Glucose [Mass/Vol] 92 mg/dL Normal 65-99 [facility] Comment on above: Result Comment: Fasting reference interval Performed By: #### 7 600, 93034 #### [facility] [place] [address] Wan Support Specialist: Vicente Ahmadi MD Potassium [Moles/Vol] 4.5 mmol/L Normal 3.5-5.3 [facility] Comment on above: Performed By: #### 7 600, 46941 #### [facility] of [address], [address] [place] [address] Wan Support Specialist: Vicente Ahmadi MD Protein [Mass/Vol] 7.2 g/dL Normal 6.1-8.1 [facility] Comment on above: Performed By: #### 7 600, 94870 #### [facility] of [address], [address] [place] [address] Wan Support Specialist: Vicente Ahmadi MD Sodium [Moles/Vol] 136 mmol/L Normal 135-146 [facility] Comment on above: Performed By: #### 7 600, 89491 #### [facility] [address] [address] Wan Support Specialist: Vicente Ahmadi MD Urea nitrogen [Mass/Vol] 21 mg/dL Normal 7-25 [facility] Comment on above: Performed By: #### 7 600, 25718 #### [facility] [address] [place] [address] Wan Support Specialist: Vicente Ahmadi MD LIPID PANEL, [facility] 03-0 Cholesterol [Mass/Vol] 156 mg/dL Normal <200 [facility] Comment on above: Order Comment: FASTI NG:YES FASTING: YES Performed By: #### 7 600, 21807 #### [facility] [address] [place] [address] Wan Support Specialist: Vicente Ahmadi MD Cholesterol in HDL [Mass/Vol] 42 mg/dL Normal > OR = 40 [facility] Comment on above: Order Comment: FASTI NG:YES FASTING: YES Performed By: #### 7 600, 71676 #### [facility] [place] [address] Wan Support Specialist: Vicente Ahmadi MD Cholesterol in LDL [Mass/Vol] [...] LDL-C. Marcus PHILIPPE et al. ZOEY. 2013;310(19): 2937-5844 (http://education.CastingDB.MojoPages/faq/BBL345) Performed By: #### 7 600, 56333 #### [facility] [address], [address] [place] [address] Wan Support Specialist: Vicente Ahmadi MD Cholesterol.total/C holesterol in HDL [Mass ratio] 3.7 {ratio} Normal <5.0 [facility] Comment on above: Order Comment: FASTI NG:YES FASTING: YES Performed By: #### 7 600, 74112 #### [facility] [address], [address] [place] [address] Wan Support Specialist: Vicente Ahmadi MD NON HDL CHOLESTEROL 114 mg/dL (calc) Normal <130 [facility] Comment on above: Order Comment: FASTI NG:YES FASTING: YES Result Comment: For patients with diabetes plus 1 major ASCVD risk factor, treating to a non-HDL-C goal of <100 mg/dL (LDL-C of <70 mg/dL) is considered a therapeutic option. Performed By: #### 7 600, 12261 #### [facility] [address], [address] [place] [address] Wan Support Specialist: Vicente Ahmadi MD Triglyceride [Mass/Vol] 108 mg/dL Normal <150 [facility] Comment on above: Order Comment: FASTI NG:YES FASTING: YES Performed By: #### 7 600, 48330 #### [facility] [address] [place] [address] Wan Support Specialist: Vicente Ahmadi MD Vital Signs Date Time Vital Sign Value Performing Clinician Facility 10-29-2024 12:36-0400 Body height 193 cm Marybeth Bee DO Work Phone: [facility] 10-29-2024 12:36-0400 Body mass index (BMI) [Ratio] 57.36 kg/m2 Marybeth Garcias DO Work Phone: [facility] 10-29-2024 12:36-0400 Body temperature 97.5 [degF] Marybeth Garcias DO Work Phone: [facility] 10-29-2024 12:36-0400 Body weight 213.64 kg Marybeth Garcias DO Work Phone: [facility] 10-29-2024 12:36-0400 Diastolic blood pressure 72 mm[Hg] Marybeth Garcias DO Work Phone: [facility] 10-29-2024 12:36-0400 Heart rate 92 /min Marybeth Garcias DO Work Phone: [facility] 10-29-2024 12:36-0400 Respiratory rate 20 /min Marybeth Garcias DO Work Phone: [facility] 10-29-2024 12:36-0400 SaO2% (BldA) [Mass fraction] 100 % Marybeth Garcias DO Work Phone: [facility] 10-29-2024 12:36-0400 Systolic blood pressure 118 mm[Hg] Marybeth Bee DO Work Phone: [facility] 07-04-2024 07:55-0500 Body height 193 cm Marybeth Garcias DO Work Phone: [facility] 07-04-2024 07:55-0500 Body mass index (BMI) [Ratio] 57.87 kg/m2 Marybeth Garcias DO Work Phone: [facility] 07-04-2024 07:55-0500 Body temperature 97.39 [degF] Marybeth Garcias DO Work Phone: [facility] 07-04-2024 07:55-0500 Body weight 215.64 kg Marybeth Garcias DO Work Phone: [facility] 07-04-2024 07:55-0500 Diastolic blood pressure 72 mm[Hg] [facility] 07-04-2024 07:55-0500 Heart rate 97 /min [facility] Bee DO [facility] 07-04-2024 07:55-0500 SaO2% (BldA) [Mass fraction] 98 % Marybeth Bee DO Work Phone: [facility] [employer] 07-04-2024 07:55-0500 Systolic blood pressure 120 mm[Hg] Marybeth Bee DO Work Phone: [facility] [employer] 09-05-2023 16:57-0400 Body mass index (BMI) [Ratio] 56.6 kg/m2 Marybeth Bee DO Work Phone: [facility] [employer] [facility] 09-05-2023 16:57-0400 Body weight 210.92 kg Marybeth Bee DO Work Phone: [facility] [employer] 09-05-2023 16:57-0400 Diastolic blood pressure 78 mm[Hg] Marybeth Bee DO Work Phone: [facility] [employer] [facility] 09-05-2023 16:57-0400 Systolic blood pressure 124 mm[Hg] Marybeth Bee DO Work Phone: [facility] Encounters Encounter Date Encounter Type Care Provider Facility Start: 10-29-2024 End: 10-29-2024 Office outpatient visit 25 minutes Marybeth Bee DO Work Phone: [facility] Comment on above: Degenerative lumbar spinal stenosis (Primary Dx); Dermatitis; Class 3 severe obesity due to excess calories with serious comorbidity and body mass index (BMI) of 50.0 to 59.9 in adult ([facility] Start: 10-29-2024 End: 10-29-2024 ambulatory [facility] Start: 07-09-2024 End: 07-09-2024 Refill [facility] L [facility] Comment on above: Class 3 severe obesi ty due to excess calories with serious comorbidity and body mass index (BMI) of 50.0 to 59.9 in adult [place] Start: 07-07-2024 End: 07-07-2024 Refill [facility] Bee DO [facility] Comment on above: Essential hypertensi on; Anxiety; Gastroesophageal reflux disease, unspecified whether esophagitis present; Degenerative lumbar spinal stenosis Start: 07-04-2024 End: 07-04-2024 ambulatory [facility] Start: 07-04-2024 End: 07-04-2024 Office outpatient visit 25 minutes Marybeth Bee DO Work Phone: [facility] Comment on above: Essential hypertensi on (Primary Dx); Class 3 severe obesity due to excess calories with serious comorbidity and body mass index (BMI) of 50.0 to 59.9 in adult [place] JILLIAN (obstructive sleep apnea); Hyperlipidemia, unspecified hyperlipidemia type; Degenerative lumbar spinal stenosis Start: 07-04-2024 End: 07-04-2024 ambulatory [facility] Start: 06-06-2024 End: 06-06-2024 Refill Marybeth Bee DO Work Phone: [facility] - [facility] Comment on above: Essential hypertensi on; Anxiety; Gastroesophageal reflux disease, unspecified whether esophagitis present; Degenerative lumbar spinal stenosis Start: 05-15-2024 End: 05-16-2024 Refill Marybeth Bee DO [facility] Comment on above: Degenerative lumbar spinal stenosis Start: 04-14-2024 End: 04-14-2024 Refill Marybeth Garcias DO Work Phone: [facility] Comment on above: Degenerative lumbar spinal stenosis Start: 03-04-2024 End: 03-04-2024 Refill Marybeth Garcias DO Work Phone: [facility] Family Medicine Comment on above: Degenerative lumbar spinal stenosis; Essential hypertension; Anxiety; Gastroesophageal reflux disease, unspecified whether esophagitis present Start: 02-01-2024 End: 02-05-2024 Refill Marybeth Garcias DO Work Phone: [facility] - [facility] Comment on above: Anxiety; Gastroesophageal reflux disease, unspecified whether esophagitis present; Essential hypertension Degenerative lumbar spinal stenosis Start: 01-10-2024 End: 01-10-2024 Refill Darby Ham CNA [facility] - Family Medicine Comment on above: Degenerative lumbar spinal stenosis Start: 01-07-2024 End: 01-07-2024 Refill Lizeth Turner CMA [facility] Internal Medicine - Family Medicine Comment on above: Degenerative lumbar spinal stenosis Start: 12-05-2023 End: 12-07-2023 Refill Marybeth Garcias DO Work Phone: [facility] Internal Medicine Family Medicine Comment on above: Degenerative lumbar spinal stenosis Start: 10-29-2023 End: 10-29-2023 Refill Marybeth Garcias DO Work Phone: [facility] Medicine Comment on above: Degenerative lumbar spinal stenosis Start: 10-19-2023 End: 10-19-2023 Refill Marybeth Garcias DO Work Phone: [facility] Internal Medicine Family Medicine Comment on above: Gastroesophageal ref lux disease, unspecified whether esophagitis present; Essential hypertension Start: 10-16-2023 End: 10-24-2023 Telephone encounter Marybeth Garcias DO Work Phone: [facility] Internal Medicine - Family Medicine Start: 09-05-2023 End: 09-05-2023 Office outpatient visit 15 minutes Marybeth Garcias DO Work Phone: [facility] Internal Medicine Family Medicine Comment on above: Class 3 severe obesi ty due to excess calories with serious comorbidity and body mass index (BMI) of 50.0 to 59.9 in adult ([facility]) (Primary Dx); Essential hypertension; Degenerative lumbar spinal [...] Start: 10-29-2024 Adult depression screening assessment Marybeth eBe DO Work Phone: Start: 07-04-2024 Adult depression screening assessment Marybeth Bee DO Work Phone: Start: 01-22-2023 Adult depression screening assessment Marybeth Bee DO Work Phone: Plan of Treatment Date Care Activity Detail Author Start: 07-04-2025 Adult BMI Screening Adult BMI Screen ing [facility] Start: 07-04-2025 Depression Screening Depression Scre ening [facility] Start: 07-04-2025 Tobacco Screening Tobacco Screening [facility] Start: 02-02-2025 Influenza vaccination Influenza Vacc ine [facility] Start: 09-04-2024 Adult BMI Screening Adult BMI Screen ing [facility] Start: 09-04-2024 Tobacco Screening Tobacco Screening [facility] Start: 08-05-2024 End: 08-05-2024 Telemedicine consultation with patient 08/05/2024 3:45 PM EST Telemedicine [facility] [address] [place] [address] Marybeth Bee DO [address] [place] [address] [facility] Start: 07-04-2024 End: 07-04-2024 Patient encounter procedure 07/04/2024 8:00 AM EST Office Visit [facility] [address] [place] [address] Marybeth Bee, [address] [place] [address] [facility] Start: 02-03-2024 COVID-19 Vaccine ( season) COVID-19 Vaccine ( season) [facility] Start: 02-03-2024 COVID-19 Vaccine ( season) COVID-19 Vaccine ( season) [facility] Start: 02-03-2024 Influenza vaccination Influenza Vacc ine [facility] Start: 01-23-2024 Adult BMI Screening Adult BMI Screen ing [facility] Start: 01-23-2024 Depression Screening Depression Scre ening [facility] Start: 01-23-2024 Tobacco Screening Tobacco Screening [facility] Start: 02-02-2023 COVID-19 Vaccine ( season) COVID-19 Vaccine ( season) [facility] Start: 02-02-2023 Influenza vaccination Influenza Vacc ine [facility] Start: 2001 DTaP,Tdap and Td Vaccines (1 - Tdap) DTaP,Tdap and Td Vaccines (1 - Tdap) [facility] Start: 2000 Adult BMI Follow Up Plan Adult BMI Follow Up Plan [facility] End: 07-04-2025 Comprehensive metabolic 2000 panel - Serum or Plasma Comprehensive metabolic panel Lab Routine Hyperlipidemia, unspecified hyperlipidemia type 1 Occurrences starting 07/04/2024 until 07/04/2025 [facility] Work Phone: Comment on above: 1 Occurrences starti ng 07/04/2024 until 07/04/2025 End: 07-04-2025 Lipid 1996 panel - Serum or Plasma Lipid profile Lab Routine Hyperlipidemia, unspecified hyperlipidemia type 1 Occurrences starting 07/04/2024 until 07/04/2025 [facility] Comment on above: 1 Occurrences starti ng 07/04/2024 until 07/04/2025 Payers Date Payer Category Payer Commercial Managed C are - PPO [employer] [id number] 2021 Unknown [employer] [facility] [id number] 2021-Present [phone] [address] [place] [address] [id number] 1982 Unknown [id number] 1982 Unknown [id number] 1982 Unknown [id number] 1982 Unknown [id number] 1959 Unknown [id number] Social History Date Type Detail Facility Start: 07-05-2022 [facility] Start: 07-05-2022 Tobacco use and exposure Smoke less tobacco non-user [facility] Start: 09-05-2023 End: 10-29-2024 Alcoholic beverage intake Ex-drinker (finding) [facility] Start: 06-26-2022 End: 10-29-2024 History of Social function [facility] Start: 06-26-2022 End: 10-29-2024 Social connection and isolation panel [facility] Do you belong to any clubs or organizations such as restoration groups, unions, fraternal or athletic groups, or school groups? No [facility] Are you now , , , , never or living with a partner? [facility] How often to you hav e a drink containing alcohol? Never [facility] How many standard dr inks containing alcohol do you have on a typical day? Patient does not drink [facility] How hard is it for y ou to pay for the very basics like food, housing, medical care, and heating Somewhat hard [facility] Do you feel stress - tense, restless, nervous, or anxious, or unable to sleep at night because your mind is troubled all the time - these days [OSQ] Only a little [facility] Start: 06-26-2022 Education 15 [facility] Start: 1980 Sex assigned at Not on file P [facility] Start: 01-07-2015 Sex Male (finding) [facility] How hard is it for y ou to pay for the very basics like food, housing, medical care, and heating Not very hard [facility] Clinical Notes 07-16-2023 to 10-29-2024 Marybeth Bee, [...] (BMI) of 50.0 to 59.9 in adult ([facility]) -currently on phentermine and topiramate -advised patient [...] Testing No results found. Marybeth Bee DO., [facility] Office: [phone] [facility] History of Presen t illness Narrative [...] (BMI) of 50.0 to 59.9 in adult ([facility]) -patient is aware he needs to have [...] Testing No results found. Marybeth Bee DO., [facility] Office: [phone] documented in this encounter [facility] 01-10-2024 Miscellaneous Notes Formattin g of this note might be different from the original. Junior called to request Meloxicam be sent to [facility] at this time, previously sent to [facility]. documented in this encounter [facility] 01-10-2024 Telephone encount er Note Junior called to request Meloxicam be sent to [facility] at this time, previously sent to [facility]. [facility] 10-16-2023 Miscellaneous Notes Formattin g of this note might be different from the original. ----- Message from Marybeth Bee DO sent at 09/05/2023 5:10 PM EDT ----- Weight recheck - Phentermine Lm on VM Lm on VM Sending letter documented in this encounter [facility] 10-16-2023 Telephone encount er Note ----- Message from Marybeth Bee DO sent at 09/05/2023 5:10 PM EDT ----- Weight recheck - Phentermine [facility] 10-16-2023 Telephone encount er Note Lm on VM [facility] 10-16-2023 Telephone encount er Note Lm on VM [facility] 10-16-2023 Telephone encount er Note Sending letter [facility] 09-05-2023 History of Presen t illness Narrative IM PROGRESS NOTE Patient - Junior Collins Age - 42 y.[facility]. [facility] 1980 [id number] ASSESSMENT & PLAN Video Visit via Real-time Synchronous Audiovisual Provider Location: [facility] [address] [facility] [address] Patient Location: Car Video Visit Consent Statement: [...] that there are some limitations compared to [id number] evaluations. The patient consented to the presence of additional virtual and/or in-person participants. We elected to proceed. 1. Class 3 severe obesity due to excess calories with serious comorbidity and body mass index (BMI) of 50.0 to 59.9 in adult ([facility]) -we discussed his goals of weight loss. His initial goals to get less than 400 lb. -he previously has received instruction on diet. -at the current time he is unable to participate regularly in exercise because of his orthopedic limitations -previously on Wegovy with prescription, and tolerated it well. We did discuss using a compounded formulation of semaglutide through [facility] in [place]. Cost estimate would be anywhere 100-200 dollars a month. He will investigate this, and look at his finances. -more affordable would be phentermine 37.5 mg daily. We reviewed the potential side effects both with anxiety, hypertension palpitations, dry mouth and sleeplessness. He is willing to try this as a start. -Rx for phentermine sent to [facility] 2. 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 Marybeth Bee DO., [facility] Office: [phone] documented in this encounter [facility] 07-16-2023 Miscellaneous Notes Formattin g of this note might be different from the original. ----- Message from Marybeth Bee DO sent at 12/28/2022 3:21 PM EDT ----- Weight recheck/lab/BP Called twice sending letter documented in this encounter [facility] 07-16-2023 Telephone encount er Note ----- Message from Marybeth Bee DO sent at 12/28/2022 3:21 PM EDT ----- Weight recheck/lab/BP [facility] 07-16-2023 Telephone encount er Note Called twice sending letter [facility] Evaluation note Diagnosis Degenerative lumbar spinal stenosis Spinal stenosis of lumbar region [facility] Diagnosis Essential hypertension Unspecified essential hypertension Anxiety Anxiety state, unspecified Gastroesophageal reflux disease, unspecified whether esophagitis present Degenerative lumbar spinal stenosis Spinal stenosis of lumbar region [facility] Essential hypertension- Primary Unspecified essential hypertension Class 3 severe obesity due to excess calories with serious comorbidity and body mass index (BMI) of 50.0 to 59.9 in adult [place] JILLIAN (obstructive sleep apnea) [...] (BMI) of 50.0 to 59.9 in adult ([facility]) documented in this encounter [...] (BMI) of 50.0 to 59.9 in adult ([facility] Primary Essential hypertension Unspecified [...] (BMI) of 50.0 to 59.9 in adult ([facility]) documented in this encounter [...] (BMI) of 50.0 to 59.9 in adult ([facility]) Marybeth Bee, DO [address] [place] [address] Referral ID Status Reason Start Date Expiration Date V isits Requested Visits Authorized [id number] Pending Review 1 1 Additional Source Comments (unrecognized sect ion and content) No Status Records FoundNo Status Records FoundNo Status Records FoundNo Status Records Found INFORMATION SOURCE (unrecogn ized section and content) DATE CREATED AUTHOR 08/05/2021 [facility] DATE CREATED AUTHOR AUTHOR'S ORGANIZ ATION 09/07/2022 [facility] DATE CREATED AUTHOR AUTHOR'S ORGANIZ ATION 07/07/2024 [facility] DATE CREATED AUTHOR AUTHOR'S ORGANIZ [...] Care Teams (unrecognized sec tion and content) Map Mounter Relationship Specialty Start Date End Date Marybeth Bee DO [address] [place] [address] PCP - General Internal Medicine 06/13/22 Map Mounter Relationship Specialty Start Date End Date Marybeth Bee DO [address] [place] [address] PCP - General Internal Medicine 06/13/22 Map Mounter Relationship Specialty Start Date End Date Marybeth Bee DO [address] [place] [address] PCP - General Internal Medicine 06/13/22 Map Mounter Relationship Specialty Start Date End Date Marybeth Bee DO [address] [place] [address] PCP - General Internal Medicine 06/13/22 Map Mounter Relationship Specialty Start Date End Date Marybeth Bee DO [address] [place] [address] PCP - General Internal Medicine 06/13/22 Map Mounter Relationship Specialty Start Date End Date Marybeth Bee DO [address] [place] [address] PCP - General Internal Medicine 06/13/22 Map Mounter Relationship Specialty Start Date End Date Marybeth Bee DO [address] [place] [address] PCP - General Internal Medicine 06/13/22 Map Mounter Relationship Specialty Start Date End Date Marybeth Bee DO [address] [place] [address] PCP - General Internal Medicine 06/13/22 Map Mounter Relationship Specialty Start Date End Date Marybeth Bee DO [address] [place] [address] PCP - General Internal Medicine 06/13/22 Map Mounter Relationship Specialty Start Date End Date Marybeth Bee DO [address] [place] [address] PCP - General Internal Medicine 06/13/22 Map Mounter Relationship Specialty Start Date End Date Marybeth Bee DO [address] [place] [address] PCP - General Internal Medicine 06/13/22 Map Mounter Relationship Specialty Start Date End Date Marybeth Bee DO [address] [place] [address] PCP - General Internal Medicine 06/13/22 Map Mounter Relationship Specialty Start Date End Date Marybeth Bee DO [address] [place] [address] PCP - General Internal Medicine 06/13/22 FOR [...] BE BASED ON THE PRIMARY CLINICAL RECORDS. [facility]. provides no warranty or guarantee of the accuracy or completeness of information in this document.
--- OUTSIDE RECORDS SUMMARY | 2024-11-09 16:55 | XMS_ITS | Encounter Summary ---
Author Organization [employer] Address [id number] [address] [place] [address] Care Team Providers Care Planer Stone Name Role Phone Rivera Simon DO Primary Care Provider [phone] Encounter Details Date Type Department Care Team (Late st Contact Info) Description 08/29/2022 Orders Only [facility] - [facility] Medicine [address] [place] [phone] Rivera Simon DO [address] [place] [address] Class 3 severe obesity due to excess calories with serious comorbidity and body mass index (BMI) of 50.0 to 59.9 in adult ([facility]) Social History [...] How often do you attend jainism or mormon serv ices? Never 06/26/2022 Do [...] Answer Date Recorded Total Score 7 06/26/2022 [facility] [place] of Occupat ional Health - Occupational Stress [...] Recorded Do you need help finding a [facility] and/or a training program? [...] of 50.0 to 59.9 in adult ([facility]) documented in this encounter Additional Health Concerns Assessment Noted Time PHQ-9 Depression Total Score: 7 06/26/19 23 6:30 PM EST documented as of this encounter Care Teams Planer Stone Relationship Specialty Start Date End Date Rivera Simon DO [address] [place] [address] PCP - General Internal Medicine 06/13/22 documented as of this encounter
--- OUTSIDE RECORDS SUMMARY | 2024-11-09 16:55 | XMS_ITS | Encounter Summary ---
Author Organization [employer] Address [facility]-[id number] [address] [place] [address] Care Team Providers Care Lamp Developer Name Role Phone Rivera Simon DO Primary Care Provider [phone] Encounter Details Date Type Department Care Team (Late st Contact Info) Description 12/11/2022 Orders Only [facility] - Family Medicine [address] [place] [phone] Rivera Simon DO [address] [place] [address] Class 3 severe obesity due to excess calories with serious comorbidity and body mass index (BMI) of 50.0 to 59.9 in adult ([facility]) Social History Tobacco Use Types Packs/Day Years [...] week 06/26/2022 How often do you attend buddhism or yazidism serv ices? Never 06/26/2022 Do you belong to any clubs o r organizations such as buddhism groups, unions, fraternal or athletic groups, or [...] Answer Date Recorded Total Score 7 06/26/2022 [facility] [place] of Occupat ional Health - Occupational Stress [...] Recorded Do you need help finding a [facility] and/or a training [...] (BMI) of 50.0 to 59.9 in adult ([facility]) documented in this encounter Additional Health Concerns Assessment Noted Time PHQ-9 Depression Total Score: 7 06/26/19 23 6:30 PM EST documented as of this encounter Care Teams Lamp Developer Relationship Specialty Start Date End Date Rivera Simon DO [address] [place] [address] PCP - General Internal Medicine 06/13/22 documented as of this encounter
--- OUTSIDE RECORDS SUMMARY | 2024-11-09 16:55 | XMS_ITS | Encounter Summary ---
Author Organization [employer] Address [facility]-[id number] [address] [place] [address] Care Team Providers Care Grants Assistant Name Role Phone Rivera Simon DO Primary Care Provider [phone] Encounter Details Date Type Department Care Team (Late st Contact Info) Description 07/05/2024 Orders Only [facility] - Family Medicine [address] [place] [phone] Rivera Simon DO [address] [place] [address] Social History Tobacco Use Types Packs/Day Years [...] week 06/26/2022 How often do you attend mu-ism or druze serv ices? Never 06/26/2022 Do you belong to any clubs o r organizations such as mu-ism groups, unions, fraternal or athletic groups, or [...] Answer Date Recorded Total Score 0 07/04/2024 [facility] - Occupational Stress Questionnaire Answer Date [...] Recorded Do you need help finding a [facility] career [facility] and/or a training [...] documented as of this encounter Care Teams Grants Assistant Relationship Specialty Start Date End Date Rivera Simon DO [address] [place] [address] PCP - General Internal Medicine 06/13/22 documented as of this encounter
--- OUTSIDE RECORDS SUMMARY | 2024-11-09 16:55 | XMS_ITS | Encounter Summary ---
Author Organization [employer] Address [facility]-[id number] [address] [place] [address] Care Team Providers Care Upper Cutter Machine Name Role Phone Rivera Simon DO Primary Care Provider [phone] Encounter Details Date Type Department Care Team (Late st Contact Info) Description 09/29/2022 Orders Only [facility] - Family Medicine [address] [place] [phone] Rivera Simon DO [address] [place] [address] Class 3 severe obesity due to excess calories with serious comorbidity and body mass index (BMI) of 50.0 to 59.9 in adult ([facility]) Social History [...] week 06/26/2022 How often do you attend baptism or evangelical serv ices? Never 06/26/2022 Do you belong to any clubs o r organizations such as baptism groups, unions, fraternal or athletic groups, or [...] Answer Date Recorded Total Score 7 06/26/2022 [facility] [place] of Occupat ional Health - Occupational Stress [...] Recorded Do you need help finding a [facility] career center and/or a training program? [...] (BMI) of 50.0 to 59.9 in adult ([facility]) documented in this encounter Additional Health Concerns Assessment Noted Time PHQ-9 Depression Total Score: 7 06/26/19 23 6:30 PM EST documented as of this encounter Care Teams Upper Cutter Machine Relationship Specialty Start Date End Date Rivera Simon DO [address] [place] [address] PCP - General Internal Medicine 06/13/22 documented as of this encounter
--- OUTSIDE RECORDS SUMMARY | 2024-11-09 16:55 | XMS_ITS | Encounter Summary ---
[facility] Organization [id number] [address] [place] [address] Care Team Providers Care Grant Coordinator Name Role Phone Rivera Simon DO Primary Care Provider [phone] Reason for Visit * Reason Onset Date Comments Med Refill 06/15/2024 Encounter Details Date Type Department Care Team (Late st Contact Info) Description 06/15/2024 Refill [facility] - Family Medicine [address] [place] [address] Rivera Simon DO [address] [place] [address] Class 3 severe obesity due to excess calories with serious comorbidity and body mass index (BMI) of 50.0 to 59.9 in adult ([facility]) Social History Tobacco Use Types [...] week 06/26/2022 How often do you attend zoroastrianism or hindu serv ices? Never 06/26/2022 Do you belong to any clubs o r organizations such as zoroastrianism groups, unions, fraternal or athletic groups, or [...] Answer Date Recorded Total Score 0 01/22/2023 [facility] of Occupat ional Health - [...] documented as of this encounter Care Teams Grant Coordinator Relationship Specialty Start Date End Date Rivera Simon DO [address] [place] [address] PCP - General Internal Medicine 06/13/22 documented as of this encounter
--- OUTSIDE RECORDS SUMMARY | 2024-11-09 16:55 | XMS_ITS | Encounter Summary ---
Author Organization [employer] Sys tem Address [id number] [address] [place] [address] Care Team Providers Care Plate Glass Grinder Name Role Phone Rivera Simon DO Primary Care Provider [phone] Encounter Details Date Type Department Care Team (Late st Contact Info) Description 06/13/2024 Orders Only [facility] - Family Medicine [address] [place] [id number] Rivera Simon DO [address] [place] [address] Class 3 severe obesity due to excess calories with serious comorbidity and body mass index (BMI) of 50.0 to 59.9 in adult ([facility]) (Primary Dx) Social History Tobacco Use Types [...] How often do you attend mu-ism or nondenominational serv ices? Never 06/26/2022 Do you belong [...] Answer Date Recorded Total Score 0 01/22/2023 [facility] of Occupat ional Health - Occupational Stress [...] Recorded Do you need help finding a [facility] career center and/or a training [...] (BMI) of 50.0 to 59.9 in adult ([facility])- Primary documented in this encounter Additional Health Concerns Assessment Noted Time PHQ-9 Depression Total Score: 0 01/23/20 23 3:26 PM EDT documented as of this encounter Care Teams Plate Glass Grinder Relationship Specialty Start Date End Date Rivera Smion DO [address] [id number] PCP - General Internal Medicine 06/13/22 documented as of this encounter
--- OUTSIDE RECORDS SUMMARY | 2024-11-09 16:55 | XMS_ITS | Encounter Summary ---
Author Organization [email or web address] Sys tem Address [facility] [id number] [address] [place] [address] Care Team Providers Care Event Specialist Name Role Phone Rivera Simon DO Primary Care Provider [phone] Encounter Details Date Type Department Care Team (Late st Contact Info) Description 08/07/2022 Orders Only [facility] - Family Medicine [address] [place] [phone] Rivera Simon DO [address] [place] [address] Class 3 severe obesity due to excess calories with serious comorbidity and body mass index (BMI) of 50.0 to 59.9 in adult ([facility]) (Primary Dx) Social History Tobacco Use Types [...] week 06/26/2022 How often do you attend religion or rastafari serv ices? Never 06/26/2022 Do you belong to any clubs o r organizations such as religion groups, unions, fraternal or athletic groups, or [...] Answer Date Recorded Total Score 7 06/26/2022 [facility] [place] of Occupat ional Health - Occupational Stress [...] Recorded Do you need help finding a [facility] career [facility] and/or a training [...] documented as of this encounter Care Teams Event Specialist Relationship Specialty Start Date End Date Rivera Simon DO [address] [place] [address] PCP - General Internal Medicine 06/13/22 documented as of this encounter
--- OUTSIDE RECORDS SUMMARY | 2024-11-09 16:55 | XMS_ITS | Encounter Summary ---
Author Organization [employer] Sys tem Address [facility] [id number] [address] [place] [address] Care Team Providers Care Mobile Lab Technician Name Role Phone Rivera Simon Primary Care Provider Encounter Details Date Type Department Care Team (Late st Contact Info) Description 12/21/2022 Refill [facility] - Family Medicine [address] [place] [phone] Pat Cottrell CMA Anxiety; Class 3 severe obesity due to excess calories with serious comorbidity and body mass index (BMI) of 50.0 to 59.9 in adult ([facility]) Social History Tobacco Use Types Packs/Day [...] week 06/26/2022 How often do you attend mandaen or restoration serv ices? Never 06/26/2022 Do you belong to any clubs o r organizations such as mandaen groups, unions, fraternal or athletic groups, or [...] Answer Date Recorded Total Score 7 06/26/2022 [facility] of Occupat ional Health - Occupational Stress [...] through [employer]. * Telephone Encounter - Evlein Campa CMA - 12/21/2022 3:33 PM EDT [...] documented as of this encounter Care Teams Mobile Lab Technician Relationship Specialty Start Date End Date Rivera Simon DO [address] [place] [address] PCP - General Internal Medicine 06/13/22 documented as of this encounter
--- OUTSIDE RECORDS SUMMARY | 2024-11-09 16:55 | XMS_ITS | Encounter Summary ---
Author Organization [employer] Sys tem Address [id number] [address] [place] [address] Care Team Providers Care Cofounder Name Role Phone Rivera Simon DO Primary Care Provider [phone] Encounter Details Date Type Department Care Team (Late st Contact Info) Description 10/31/2022 Orders Only [facility] - Family Medicine [address] [place] [phone] Rivera Simon DO [address] [place] [address] Anxiety (Primary Dx) Social History Tobacco Use [...] How often do you attend mosque or restoration serv ices? Never 06/26/2022 Do [...] Answer Date Recorded Total Score 7 06/26/2022 [facility] [place] of Occupat ional Health - Occupational Stress [...] documented as of this encounter Care Teams Cofounder Relationship Specialty Start Date End Date Rivera Simon DO [address] [id number] PCP - General Internal Medicine 06/13/22 documented as of this encounter
--- OUTSIDE RECORDS SUMMARY | 2024-11-09 16:55 | XMS_ITS | Encounter Summary ---
Author Organization [employer] s tem Address [id number] [address] [place] [address] Care Team Providers Care Director Home Name Role Phone Rivera Simon Primary Care Provider [phone] Encounter Details Date Type Department Care Team [...] week 06/26/2022 How often do you attend jew or anabaptism serv ices? Never 06/26/2022 Do you belong to any clubs o r organizations such as jew groups, unions, fraternal or athletic groups, or [...] Answer Date Recorded Total Score 0 10/29/2024 [facility] of Occupat ional Health - Occupational [...] Recorded Do you need help finding a [facility] career center and/or a training program? [...] documented as of this encounter Care Teams Director Home Relationship Specialty Start Date End Date Rivera Simon DO [address] [place] [address] PCP - General Internal Medicine 06/13/22 documented as of this encounter
--- OUTSIDE RECORDS SUMMARY | 2024-11-09 16:55 | XMS_ITS | Encounter Summary ---
Author Organization [employer] Sys [employer] Address [id number] [address] [place] [address] Care Team Providers Care Tube Lancer Name Role Phone Rivera Simon DO Primary Care Provider [phone] Encounter Details Date Type Department Care Team (Late st Contact Info) Description 06/16/2024 Orders Only [facility] - Family Medicine [address] [place] [phone] Rivera Simon DO [address] [place] [address] Class 3 severe obesity due to excess calories with serious comorbidity and body mass index (BMI) of 50.0 to 59.9 in adult ([facility]) Social History Tobacco Use Types [...] How often do you attend buddhism or christian serv ices? Never 06/26/2022 Do you belong [...] Answer Date Recorded Total Score 0 01/22/2023 [facility] [place] of Occupat ional Health - [...] Recorded Do you need help finding a [facility] career center and/or a training [...] as of this encounter Care Teams Tube Lancer Relationship Specialty Start Date End Date Rivera Simon DO [address] [phone] PCP - General Internal Medicine 06/13/22 documented as of this encounter
[2024-11-09 17:29] LABS: Troponin I High Sensitivity 6.7 pg/mL (4.0-76.1)
[2024-11-09] MEDS: APIXABAN 5 MG TABLET PO (17:54)
[2024-11-09] MEDS: ACETAMINOPHEN 500 MG TABLET 1000 MG PO (20:40)
[2024-11-10] VITALS (8 sets, daily range): BP systolic 115–143; BP diastolic 64–82; PULSE 62–89; TEMP 36.4–36.8; O2SAT 92–98
[2024-11-10 05:35] LABS: Basophils Absolute Auto 0.1 10^3/uL (0.0-0.1); Basophils Percent Auto 0.9 % (0.2-2.0); Eosinophils Absolute Auto 0.1 10^3/uL (0.0-0.7); Eosinophils Percent Auto 1.5 % (0.9-7.0); Hematocrit 41.2 % (42.0-54.0); Hemoglobin 13.9 g/dL (14.0-18.0); Immature Granulocytes Abs Auto 0.05 10^3/uL (0.00-0.03); Immature Granulocytes Pct Auto 0.7 % (0.0-0.5); Lymphocytes Absolute Auto 1.9 10^3/uL (1.2-3.8); Lymphocytes Percent Auto 28.3 % (20.5-60.0); Mean Corpuscular HGB Conc 33.7 g/dL (29.9-35.2); Mean Corpuscular Volume 85.8 fL (80.0-94.0); Mean Platelet Volume 11.5 fL (9.5-13.5); Monocytes Absolute Auto 0.6 10^3/uL (0.3-0.8); Monocytes Percent Auto 8.5 % (1.7-12.0); Neutrophils Absolute Auto 4.1 10^3/uL (1.4-6.5); Neutrophils Percent Auto 60.1 % (43.0-75.0); Platelet Count 229 10^3/uL (150-450); Red Cell Distribution Width 14.6 % (11.0-15.0); White Blood Count 6.8 10^3/uL (4.0-11.0)
[2024-11-10 05:57] LABS: Alanine Aminotransferase 37 U/L (16-63); Albumin Globulin Ratio 0.9; Albumin Level 3.3 g/dL (3.4-5.0); Alkaline Phosphatase 67 U/L (46-116); Anion Gap 13.5; Aspartate Amino Transferase 33 U/L (15-37); BUN Creatinine Ratio 30.2; Bilirubin Total 0.6 mg/dL (0.2-1.0); Calcium 9.1 mg/dL (8.5-10.1); Carbon Dioxide 27.6 mmol/L (21.0-32.0); Chloride 100 mmol/L (98-107); Estimated GFR (African America >60 (>=60 mL/min/1.73m^2); Estimated GFR (Non-African Ame >60 (>=60 mL/min/1.73m^2); Globulin 3.8 g/dL; Glucose 98 mg/dL (74-106); Potassium 5.1 mmol/L (3.5-5.1); Sodium 136 mmol/L (136-145); Total Protein 7.1 g/dL (6.4-8.2)
[2024-11-10] MEDS: APIXABAN 5 MG TABLET PO (05:59)
--- NOTE | 2024-11-10 08:13 | PM.DS1 ---
DS: Providers Provider Date of admission: 11/09/24 07:47 Primary care physician: MARYBETH SIMON Attending physician on admission: Donya Montelongo Discharging clinician: Donya Montelongo DS: Diagnosis Discharge Diagnosis (1) Atrial fibrillation with RVR: (2) HTN (hypertension): Qualifiers: Hypertension type: primary hypertension Qualified Code(s): I10 - Essential (primary) hypertension (3) Morbid obesity with BMI of 50.0-59.9, adult: DS: Summary Hospital Course Hospital Course: Patient is a 44 y.o white male with past medical history of Morbid obesity, BMI 55, and Hypertension who presented to the ER 6/ after complaints of palpations waking him up from sleep. Patient recently started Adipex and Topamax for weight loss. Patient's HR was in the 130-140's. EKG in the ER was consistent with Afib with RVR. Patient has no prior history of this. ER findings: WBC's 8.6, Hb 14.6, INR 1.03, D-dimer 0.19, cr 1.00, Mag 1.8, K 4.5, Trop 5.6-7.1, ProBNP 109, HR 136, BP 122/61, 98% on Room air, normal D-dimer and Chest X-ray. Patient was given Lovenox, and IV dilt load followed by starting Dilt drip. He was admitted to the hospitalist service for further workup. He denies any prior issues with Afib, Mother with afib and father with bypass surgery. He had a cardiac stress test >10 years ago. By the time he arrived on the floor he had converted to NSR. I have started Coreg 3.125mg BID, along with his home lisinopril/hctz. Dilt drip stopped. He as also started on Eliquis 5mg BID for a [id number] score of 1. Ha1c was 5.0, normal thyroid, lipid panel was 157/44/83/147. All normal results were reviewed with patient. He had Echo today with normal prelim EF. He will follow up results with his Dr. Simon. He will continue Coreg and Eliquis until evaluated further by cardiology and has outpatient appointment scheduled with them as well. He has no further events on telemetry, no chest pain, no shortness of breath. He will stop the Adipex and Topamax. He may return to the ER with any worsening signs or symptoms. Status at Discharge Functional status at discharge: independent ambulation Overall status at discharge: patient is back to baseline Time Spent with Patient Time attestation: Total time spent providing and/or coordinating discharge services: Time spent: greater than 30 minutes Exam Narrative Exam Narrative: General: Patient is alert, and oriented to person, place and time with normal affect, proper hygiene Skin: no visible rashes, or ulcers Head: atraumatic, acephalic Eyes: PERRLA, no nystagmus present, conjunctiva clear, no scleral icterus Ears: normal gross auditory acuity Neck: no masses palpated, normal thyroid, no JVD or audible carotid bruits Heart: Normal rate and rhythm, no murmurs/rubs/gallops Lungs: no audible wheezes, crackles and normal breath sounds all lung box Abdomen: Normal audible bowel sounds, no distension, No palpable masses, no organomegaly, no rebound/guarding/ or rigidity Musculoskeletal: no swelling bilateral lower extremities Neuro: CN II-X grossly intact Constitutional Vital Signs, click to edit/add: Last Vital Signs Temp 97.8 F 11/10/24 08:00 Pulse 69 11/10/24 08:00 Resp 16 11/10/24 08:00 BP 115/64 11/10/24 08:00 Pulse Ox 92 L 11/10/24 08:00 O2 Del Method Room Air 11/10/24 08:00 DS: Data Data Completed and Pending Labs on day of discharge: Labs from last 24 hours 11/10/24 11/09/24 11/09/24 05:17 17:00 12:00 WBC 6.8 RBC 4.80 Hgb 13.9 L Hct 41.2 L MCV 85.8 MCH 29.0 MCHC 33.7 RDW 14.6 Plt Count 229 MPV 11.5 Neut % (Auto) 60.1 Lymph % (Auto) 28.3 [place] % (Auto) 8.5 Eos % (Auto) 1.5 Baso % (Auto) 0.9 Neut # (Auto) 4.1 Lymph # (Auto) 1.9 [place] # (Auto) 0.6 Eos # (Auto) 0.1 Baso # (Auto) 0.1 Abs Immat Gran (auto) 0.05 H Imm/Tot Granulo (auto) 0.7 H Sodium 136 Potassium 5.1 Chloride 100 Carbon Dioxide 27.6 Anion Gap 13.5 BUN 29.0 H Creatinine 0.96 Est GFR ( Amer) >60 Est GFR (Non-Af Amer) >60 BUN/Creatinine Ratio 30.2 Glucose 98 Estimat Average Glucose Hemoglobin A1c Calcium 9.1 Magnesium 2.0 Total Bilirubin 0.6 AST 33 ALT 37 Alkaline Phosphatase 67 Troponin I High Sens 6.7 7.5 Total Protein 7.1 Albumin 3.3 L Globulin 3.8 Albumin/Globulin Ratio 0.9 Triglycerides Cholesterol LDL Cholesterol, Calc VLDL Cholesterol HDL Cholesterol Cholesterol/HDL Ratio TSH Urine Opiates Screen Ur Buprenorphine Scrn Ur Oxycodone Screen Urine Methadone Screen Ur Barbiturates Screen U Tricyclic Antidepress Ur Phencyclidine Scrn Ur Amphetamines Screen U Methamphetamines Scrn U Benzodiazepines Scrn Urine Cocaine Screen U Cannabinoids Screen 11/09/24 11/09/24 08:55 05:35 WBC RBC Hgb Hct MCV MCH MCHC RDW Plt Count MPV Neut % (Auto) Lymph % (Auto) [place] % (Auto) Eos % (Auto) Baso % (Auto) Neut # (Auto) Lymph # (Auto) [place] # (Auto) Eos # (Auto) Baso # (Auto) Abs Immat Gran (auto) Imm/Tot Granulo (auto) Sodium Potassium Chloride Carbon Dioxide Anion Gap BUN Creatinine Est GFR ( Amer) Est GFR (Non-Af Amer) BUN/Creatinine Ratio Glucose Estimat Average Glucose 97 Hemoglobin A1c 5.0 Calcium Magnesium Total Bilirubin AST ALT Alkaline Phosphatase Troponin I High Sens Total Protein Albumin Globulin Albumin/Globulin Ratio Triglycerides 147 Cholesterol 157 LDL Cholesterol, Calc 83.6 VLDL Cholesterol 29.4 HDL Cholesterol 44 Cholesterol/HDL Ratio 3.6 TSH 2.547 Urine Opiates Screen Negative Ur Buprenorphine Scrn Negative Ur Oxycodone Screen Negative Urine Methadone Screen Negative Ur Barbiturates Screen Negative U Tricyclic Antidepress Negative Ur Phencyclidine Scrn Negative Ur Amphetamines Screen Positive A U Methamphetamines Scrn Negative U Benzodiazepines Scrn Negative Urine Cocaine Screen Negative U Cannabinoids Screen Negative Discharge Plan Discharge Disposition: Home, Self-Care Discharge Medications: New carvedilol 3.125 mg Tablet 3.125 mg PO BID 30 Days Qty: 60 0RF Eliquis 5 mg Tablet 5 mg PO BID 30 Days Qty: 60 0RF Continued baclofen 10 mg tablet 10 mg PO TID lisinopril-hydrochlorothiazide 20-25 mg tablet 1 tab PO DAILY famotidine 20 mg tablet 20 mg PO BID sertraline 50 mg tablet 50 mg PO DAILY Discontinued phentermine 37.5 mg capsule 37.5 mg PO QAM topiramate 25 mg tablet 25 mg PO .qhs Activity: resume usual activities as tolerated Diet: advance to your usual diet Print Language: Greek Patient Instructions: Apixaban (By mouth) (Eliquis), A-fib (Atrial Fibrillation) (GEN), Blood Thinners (GEN) Activity Restrictions/Additional Instructions: Provided work note for today and to return to work tomorrow without restrictions Forms: Portal Instructions Follow Up Appointments: November 13 @ 1pm with Dr. Simon- Please follow up Echo results with Dr. Simon [phone] December 03 @ 2:20pm with [facility] [phone]
--- NOTE | 2024-11-10 08:29 | CA_ITS ---
Patient Name: BUD CARBALLO MR#: [id number] : 1980 Exam Date: 11/10/2024 Ordering Doctor: DAJA WHIPPLE . ECHOCARDIOGRAM REPORT PROCEDURE: CA ECHO DOPPLER COMPLETE INDICATIONS: New onset Afib with RVR, hypertension COMPARISON: None. DESCRIPTION: COMPLETE ECHOCARDIOGRAM Real-time transthoracic echocardiography with 2D, M-mode, spectral and color flow Doppler performed. QUALITY: Technical quality was good. LEFT VENTRICLE: Normal chamber size. Mild concentric left ventricular hypertrophy. LV EF: Global left ventricular systolic function is normal; visually estimated ejection fraction is 60-65%. No obvious wall motion abnormalities. DIASTOLIC: Normal diastolic function. ATRIAL SEPTUM: Inadequately seen. LEFT ATRIUM: Normal chamber size. RIGHT ATRIUM: Normal chamber size. RIGHT VENTRICLE: Normal chamber size. Normal right ventricular systolic function. TRICUSPID VALVE: Normal mobility and thickness. No stenosis with trivial regurgitation. No evidence of pulmonary hypertension. RVSP 25 mmHg MITRAL VALVE: Normal mobility and thickness. No evidence of mitral valve stenosis. There is no mitral annular calcification. No mitral regurgitation. AORTIC VALVE: Normal trileaflet appearance. No visible sclerosis. Normal leaflet mobility. No evidence of aortic valve stenosis. No aortic regurgitation. AORTIC ROOT: Normal diameter and appearance. PULMONIC VALVE: Normal thickness and mobility. No stenosis. No regurgitation. PERICARDIUM: No evidence of pericardial effusion. IVC: Not well visualized. CONCLUSION: 1. Global left ventricular systolic function is normal; visually estimated ejection fraction is 60 to 65% 2. Normal right ventricular size and systolic function 3. Normal diastolic function 4. The left atrium is normal in size 5. Mildly increased left ventricular wall thickness 6. No significant valvular abnormalities Adult Echocardiography Procedure Report Left Ventricle LVEDD (3.7 - 5.6 cm): 4.05 cm LVESD (2.2 - 4.0 cm): 2.68 cm LVIVS thickness (0.6 - 1.2 cm): 1.10 cm LVPW thickness (0.5 - 1.0 cm): 1.17 cm e': 0.14 m/s E - e': 4.73 LVOT Max Gradient: 3.13 mm[Hg] LVOT Area (cm2): 0.88 m/s Peak Velocity (LVOT): 0.88 m/s LVOT Diameter 2.49 cm Left Atrium LA Volume Index (2D A2C): 27.05 ml/m2 Left Atrium Systolic Dimension: 3.87 cm Mitral Valve MV E to A Ratio: 1.15 Mitral Valve A-Wave Peak Velocity: 0.59 m/s Mitral Valve E-Wave Peak Velocity: 0.68 m/s Right Ventricle Aorta AO Root Diam: 4.01 cm Aortic Valve AoV Area (Peak Willard): 3.13 cm2, 3.13 cm2 Peak Velocity(Antegrade Flow): 1.38 m/s Peak Gradient(Antegrade Flow): 7.58 mm[Hg] Tricuspid Valve Peak Velocity (Regurgitant Flow): 2.33 m/s Pulmonic Valve Mean Gradient: 2.68 mm[Hg] Mean Velocity: 0.77 m/s Peak Velocity: 1.08 m/s, 1.14 m/s Peak Gradient: 5.24 mm[Hg], 4.68 mm[Hg] Right Atrium Right Atrium Systolic Pressure: 64.59 ml, 64.59 ml Dictated by: Filomena Jimenez M.D. on 11/10/2024 at 17:14 Approved by: Filomena Jimenez M.D. on 11/10/2024 at 17:17
[2024-11-10] MEDS: SERTRALINE HCL 50 MG TABLET PO (08:31)
[2024-11-10] MEDS: CARVEDILOL 3.125 MG TABLET PO (08:31)
[2024-11-10] MEDS: LISINOPRIL 20 MG TABLET PO (08:31)
[2024-11-10] MEDS: FAMOTIDINE 20 MG TABLET PO (08:31)
[2024-11-10] MEDS: HYDROCHLOROTHIAZIDE 25 MG TABLET PO (08:31)
--- NOTE | 2024-11-10 11:00 | CM.NOTE ---
Rounds made with Dr. Montelongo, pt will discharge to home on Eliquis. Dr. Montelongo discussed reason for Eliquis and how medication works. Pt given 30 day free trial card for Eliquis and the 10 dollar co-pay card. Clarified status with Dr. Montelongo, pt is OBS, Dr. Montelongo will enter order in computer.
--- NOTE | 2024-11-10 11:48 | CM.NOTE ---
Pt will discharge to home today, no discharge needs identified. Pt independent.
--- NOTE | 2024-11-11 14:54 | CM.DCFOLLOWU ---
1st attempt 11/11/24, no answer
--- NOTE | 2024-11-12 13:16 | CM.DCFOLLOWU ---
2nd attempt 11/12/24, no answer
--- NOTE | 2024-11-13 15:07 | CM.DCFOLLOWU ---
3rd attempt 11/13/24, no answer
== END 2024-11-10 12:25 | disposition home or self-care (01) ==
LOC: ER 11-09 02:24 → MS 11-09 07:51
PROVIDERS: Registered Nurse; Admitting Provider Family Medicine; Emergency Provider Internal Medicine; PCP Internal Medicine; Visit Provider Family Medicine
DX: I48.91 Unspecified atrial fibrillation (principal); I10 Essential (primary) hypertension; Z79.899 Other long term (current) drug therapy; E66.01 Morbid (severe) obesity due to excess calories; Z68.43 Body mass index [BMI] 50.0-59.9, adult
CPT/HCPCS: 36415; 71045; 80048; 80053; 80061; 80307; 83036; 83735; 83880; 84443; 84484; 85025; 85378; 85610; 85730; 93005; 93306; 94761; 96365; 96366; 96372; 96376; 99285; G0378; J1650